=== PATIENT | female | born 1975 | race Caucasian/White ===

== ENCOUNTER 2023-01-29 10:26 | Outpatient (OUT) | payer OTHER, SELFPAY ==
--- NOTE | 2023-01-29 10:46 | ECG_ITS ---
The [facility] Test Date: 2023-01-29 Pat Name: DOUG BARROSO Department: Room: - Gender: Female [employer]: : 1975 Requested By: MADISON JOYA Order Number: [id number] Reading MD: LEVI RAMIREZ Measurements Intervals [place] Rate: 68 P: 39 MI: 165 QRS: 1 QRSD: 97 T: 45 QT: 402 QTc: 430 Interpretive Statements SINUS RHYTHM No previous ECG available for comparison Electronically Signed On 01-30-2023 7:15:37 EDT by LEVI RAMIREZ
[2023-01-29 11:22] LABS: Basophils Percent Auto 0.4 % (0.2-2.0); Eosinophils Absolute Auto 0.2 10^3/uL (0.0-0.7); Eosinophils Percent Auto 2.6 % (0.9-7.0); Hematocrit 41.8 % (36.0-48.0); Hemoglobin 13.9 g/dL (12.0-16.0); Immature Granulocytes Abs Auto 0.02 10^3/uL (0.00-0.03); Immature Granulocytes Pct Auto 0.4 % (0.0-0.5); Lymphocytes Absolute Auto 1.4 10^3/uL (1.2-3.8); Lymphocytes Percent Auto 24.2 % (20.5-60.0); Mean Corpuscular HGB Conc 33.3 g/dL (29.9-35.2); Mean Corpuscular Hemoglobin 29.7 pg (26.7-34.0); Mean Corpuscular Volume 89.3 fL (81.0-99.0); Mean Platelet Volume 11.4 fL (9.5-13.5); Monocytes Absolute Auto 0.4 10^3/uL (0.3-0.8); Monocytes Percent Auto 6.1 % (1.7-12.0); Neutrophils Absolute Auto 3.8 10^3/uL (1.4-6.5); Neutrophils Percent Auto 66.3 % (43.0-75.0); Platelet Count 223 10^3/uL (150-450); Red Blood Count 4.68 10^6/uL (4.20-5.40); Red Cell Distribution Width 12.4 % (11.0-15.0); White Blood Count 5.7 10^3/uL (4.0-11.0)
[2023-01-29 16:02] LABS: Anion Gap 12.3; BUN Creatinine Ratio 12.5; Calcium 8.5 mg/dL (8.5-10.1); Carbon Dioxide 27.6 mmol/L (21.0-32.0); Chloride 102 mmol/L (98-107); Estimated GFR (African America >60 (>=60); Estimated GFR (Non-African Ame >60 (>=60); Glucose 87 mg/dL (74-106); Potassium 3.9 mmol/L (3.5-5.1); Sodium 138 mmol/L (136-145); Thyroid Stimulating Hormone 3.684 uIU/mL (0.358-3.740)
== END 2023-01-29 10:27 | disposition home or self-care (01) ==
LOC: LAB 10:38
PROVIDERS: PCP Family Medicine; Visit Provider Family Medicine
DX: R55 Syncope and collapse (principal)
CPT/HCPCS: 36415; 80048; 84443; 85025; 93005

== ENCOUNTER 2023-03-12 08:59 | Outpatient (OUT) | payer OTHER, SELFPAY ==
--- NOTE | 2023-03-12 | XR_ITS ---
The [address] [address] Patient Name: DOUG BARROSO MRN: [id number] date: 1975 Sex: F Assigned Patient Location: [facility] Current Patient Location: [facility] Accession/Order Number: [id number] Exam Date: 03/12/2023 09:02 Report Date: 03/12/2023 15:07 At the request of: EARNEST PORTER Procedure: XR ankle RT min 3V PROCEDURE: XR ankle RT min 3V HISTORY: RIGHT ANKLE PAIN COMPARISON: XR ankle right 09/18/2022 FINDINGS: BONES:Prosthetic replacement of the talus and the articular surface of the tibial plafond. No evidence of hardware fracture loosening. No bone fracture dislocation. SOFT TISSUES:Soft tissue swelling surrounding the ankle. EFFUSION:None visible. OTHER: Negative. XR/XR ankle RT min 3V IMPRESSION: 1. Stable surgical changes without evidence of hardware failure or change in alignment. 2. Soft tissue swelling.. Electronically authenticated by: SEVEN GARCIA Date: 03/12/2023 15:07
== END 2023-03-12 09:00 | disposition home or self-care (01) ==
LOC: RAD 08:59
PROVIDERS: PCP Family Medicine; Visit Provider Podiatrist Foot & Ankle Surgery
DX: R60.0 Localized edema (principal); Z96.661 Presence of right artificial ankle joint
CPT/HCPCS: 73610

== ENCOUNTER 2023-09-10 09:02 | Outpatient (OUT) | payer OTHER, SELFPAY ==
--- NOTE | 2023-09-10 | XR_ITS ---
The [address] [address] Patient Name: DOUG BARROSO MRN: [id number] date: 1975 Sex: F Assigned Patient Location: Current Patient Location: Accession/Order Number: [id number] Exam Date: 09/10/2023 09:03 Report Date: 09/10/2023 14:23 At the request of: EARNEST PORTER Procedure: XR ankle RT min 3V PROCEDURE: XR ankle RT min 3V COMPARISON: 03/12/2023 HISTORY: RIGHT ANKLE PAIN FINDINGS: BONES:Ankle arthroplasty with talus replacement. No acute fracture or dislocation. There is been increase in dorsal displacement of the navicular in relation to the talus. Degenerative changes with joint space narrowing and marginal osteophyte formation. Moderate plantar enthesopathic spurring of the calcaneus SOFT TISSUES:Negative. No visible soft tissue swelling. EFFUSION:Moderate joint effusion OTHER: Negative. XR/XR ankle RT min 3V IMPRESSION: Ankle arthroplasty with talus replacement Electronically authenticated by: MICK KOEHLER Date: 09/10/2023 14:23
--- OUTSIDE RECORDS SUMMARY | 2023-09-10 09:33 | XMS_ITS | CCD ---
Author Organization [facility] Care Team Providers Care Maxillofacial Prosthodontist Name Role Phone DENISHA RUSH Admitting Unavailable WEST, DR MICK Rodas Consulting Unavailable JOYA, DR MARICRUZ Hammonds Primary Care Unavailable VICTOR MANUEL, DENISHA Attending Unavailable VICTOR MANUEL, DENISHA Consulting Unavailable VICTOR MANUEL, DENISHA Admitting Unavailable ZIEBER, DR SEVEN Gallegos Consulting Unavailable JOYA, DR MARICRUZ Hammonds Primary Care Unavailable VICTOR MANUEL, DENISHA Attending Unavailable VICTOR MANUEL, DENISHA Consulting Unavailable VICTOR MANUEL, DENISHA Admitting Unavailable WEST, DR MICK Rodas Consulting Unavailable JOYA, DR MARICRUZ Hammonds Primary Care Unavailable DENISHA RUSH Attending Unavailable VICTOR MANUEL, DENSIHA Consulting Unavailable VICTOR MANUEL, DENISHA Admitting Unavailable WEST, DR MICK Rodas Consulting Unavailable JOYA, DR MARICRUZ Hammonds Primary Care Unavailable VICTOR MANUEL, DENISHA Attending Unavailable DENISHA RUSH Consulting Unavailable CHARLOTTE, EARNEST Myrick Admitting Unavailable JOYA, DR MARICRUZ Hammonds Primary Care Unavailable ZIEBER, DR SEVEN Gallegos Consulting Unavailable HIGHLEARNEST LÓPEZ Attending Unavailable HIGHLEARNEST LÓPEZ Consulting Unavailable AGUBOSIMLÁZARO Consulting Unavailable CHRISTI ., FIGUEROA HER Consulting Unavailable AMERICO DANIELSON Consulting Unavailable CHARLOTTE, EARNEST Myrick Admitting Unavailable JOYA, DR MARICRUZ Hammonds Primary Care Unavailable HIGHLANDEREARNEST Consulting Unavailable CHARLOTTE, EARNEST Myrick Attending Unavailable JOYA, DR MARICRUZ Hammonds Primary Care Unavailable HIGHLANDEREARNEST Consulting Unavailable HIGHLMARIBEL, EARNEST Myrick Admitting Unavailable HIGHLMARIBEL, EARNEST Myrick Attending Unavailable AGRAWALCHUCK CARBAJAL Consulting Unavailable VICTOR MANUEL, DENISHA Admitting Unavailable JOYA, DR MARICRUZ Hammonds Primary Care Unavailable VICTOR MANUEL, DENISHA Attending Unavailable VICTOR MANUEL, DENISHA Admitting Unavailable JOYA, DR MARICRUZ Hammonds Primary Care Unavailable VICTOR MANUEL, DENISHA Attending Unavailable VICTOR MANUEL, DENISHA Admitting Unavailable JOYA, DR MARICRUZ Hammonds Primary Care Unavailable VICTOR MANUEL, DENISHA Attending Unavailable WEST, DR MICK Rodas Consulting Unavailable DENISHA RUSH Consulting Unavailable EARNEST PORTER Admitting Unavailable RADHA, DR SEVEN Gallegos Consulting Unavailable DR MARICRUZ JOYA Primary Care Unavailable EARNEST PORTER Attending Unavailable EARNEST PORTER Consulting Unavailable EARNEST PORTER Admitting Unavailable RADHA, DR SEVEN Gallegos Consulting Unavailable EARNEST PORTER Attending Unavailable DR MARICRUZ JOYA Primary Care Unavailable EARNEST PORTER Consulting Unavailable EARNEST PORTER Admitting Unavailable DR MARICRUZ JOYA Primary Care Unavailable EARNEST PORTER Attending Unavailable Maricruz Joya Unavailable Shabana Merino Unavailable MD Shabana Merino Attending Provider [phone] MD Maricruz Joya Primary Care Provider Shabana Merino Admitting Unavailable Shabana Merino Attending Unavailable Maricruz Joya Primary Care Unavailable Allergies Allergy Classification Reported Allergen(s) Allergy Type Date of Onset Reaction(s) Facility (4 sources) patient allergy list reviewed by nurse or physicia Propensity to adverse reactions 9 Comment:Done [employer] Other (4 sources) Allergies Reconciled Propensity to adverse reactions Unknown [employer] Other Medications Current Medications Medication Drug Class(es) Dates Sig (Normalized) Sig (Original) Levonorgestrel (4 sources) Progestin, Progestin-containi ng Intrauterine Device Start: 02-01-2019 Mirena (52 MG) 20MCG/24HR Mirena (52 MG)( 20MCG/24HR Intrauterine ) Active -Hx Entry Intrauterine for 0 [facility]:43378-746-52 LOT# [id number] EXP:01/2021 *Pick strength-form from [facility] for eRX* Jan, Active Vitamin D3 50 MCG(1999 UT) (4 sources) Start: 12-13-2021 take 1 tablet by mouth once daily Vitamin D3 50 MCG(1999 UT) Vitamin D3 50 MCG(1999 UT), 1 (one) Tablet daily # 60, 12/13/2021, Ref. x5. Active Oral daily for 0 *Pick strength-form from [facility] for eRX* Dec, Active Problems Active Problems Problem Classification Problem Date Documented Da te Episodic/Chronic Administrative/social admission (12 sources) Dietary management surveillance; Translations: [Dietary counseling and surveillance] Episodic Anxiety disorders (5 sources) Anxiety disorder, unspecified; Translations: [Anxiety disorder] Onset: 01-08-2022 Chronic Contraceptive and procreative management (4 sources) Surveillance of intrauterine device contraception; Translations: [Encounter for routine checking of intrauterine contraceptive device] Episodic Esophageal disorders (4 sources) Eosinophilic esophagitis; Translations: [Eosinophilic esophagitis] Chronic Essential hypertension (1 source) Essential (primary) hypertension; Translations: [ESSENTIAL PRIMARY HYPERTENSION] Onset: 12-18-2021 Chronic Fracture of lower limb (5 sources) Unspecified fracture of shaft of right tibia, subsequent encounter for closed fracture with nonunion; Translations: [Nonunion of fracture] Onset: 10-25-2021 Episodic Menstrual disorders (4 sources) Excessive and frequent menstruation; Translations: [Excessive and frequent menstruation with regular cycle] Chronic Mood disorders (1 source) Major depressive disorder, single episode, unspecified; Translations: [CHARLENE DEPRESS D/O SINGLE EPIS UNS] Onset: 01-08-2022 Chronic Nonmalignant breast conditions (4 sources) Mammographic calcification found on diagnostic imaging of breast; Translations: [Mammographic calcification found on diagnostic imaging of breast] Episodic Osteoarthritis (9 sources) Primary osteoarthritis, right ankle and foot; Translations: [Localized, primary osteoarthritis of the ankle and/or foot] Onset: 01-08-2022 Chronic Other acquired deformities (4 sources) Joint contracture of the ankle and/or foot; Translations: [Contracture, right ankle] Chronic Other aftercare (4 sources) Long-term current use of drug therapy; Translations: [Other scientific technical writer (current) drug therapy] Episodic Other aftercare (4 sources) Long-term current use of antibiotic; Translations: [edging supervisor (current) use of antibiotics] Episodic Other bone disease and musculoskeletal deformities (6 sources) Idiopathic aseptic necrosis of right ankle; Translations: [IDIOPATH ASEPTIC NECROSIS RT ANKLE] Onset: 02-18-2022 Chronic Other bone disease and musculoskeletal deformities (4 sources) Bone density finding; Translations: [Other specified disorders of bone density and structure, unspecified site] Episodic Other connective tissue disease (4 sources) Presence of right artificial ankle joint; Translations: [PRESENCE RT ARTIFICIAL ANKLE JOINT] Onset: 05-05-2022 Chronic Other connective tissue disease (4 sources) Pain in right foot; Translations: [Pain in right foot] Episodic Other connective tissue disease (4 sources) Peroneal tendinitis; Translations: [Peroneal tendinitis, right leg] Episodic Other gastrointestinal disorders (8 sources) Dysphagia; Translations: [Dysphagia, unspecified] Onset: 06-06-2017 Episodic Other non-traumatic joint disorders (9 sources) Other specified joint disorders, right ankle and foot; Translations: [OTHER SPEC JOINT D/O RT ANKLE FOOT] Onset: 12-18-2021 Episodic Other non-traumatic joint disorders (4 sources) Instability of joint of right ankle; Translations: [Other instability, right ankle] Episodic Other non-traumatic joint disorders (4 sources) Arthralgia of the ankle and/or foot; Translations: [Pain in right ankle and joints of right foot] Episodic Other nutritional; endocrine; and metabolic disorders (4 sources) Obesity; Translations: [Obesity, unspecified] Chronic Other nutritional; endocrine; and metabolic disorders (16 sources) Obese class II; Translations: [Body mass index (BMI) 38.0-38.9, adult] Onset: 08-12-2016 Resolved: 01-25-2020 Chronic Other nutritional; endocrine; and metabolic disorders (4 sources) Morbid obesity; Translations: [Morbid (severe) obesity due to excess calories] Chronic Other nutritional; endocrine; and metabolic disorders (4 sources) Abnormal weight gain; Translations: [Abnormal weight gain] Episodic Other screening for suspected conditions (not mental disorders or infectious disease) (4 sources) Imaging result abnormal; Translations: [Abnormal findings on diagnostic imaging of other specified body structures] Chronic Ovarian cyst (4 sources) Cyst of left ovary; Translations: [Unspecified ovarian cyst, left side] Episodic Phlebitis; thrombophlebitis and thromboembolism (5 sources) Personal history of other venous thrombosis and embolism; Translations: [Deep venous thrombosis of right lower extremity] Onset: 01-08-2022 Episodic Residual codes; unclassified (5 sources) Presence of functional implant, unspecified; Translations: [PRESENCE FUNCTIONAL IMPLANT UNS] Onset: 01-08-2022 Chronic Residual codes; unclassified (4 sources) Postprocedural state finding; Translations: [Other specified postprocedural states] Episodic Residual codes; unclassified (4 sources) Sleep disorder; Translations: [Sleep disorder, unspecified] Episodic Sprains and strains (5 sources) Strain of muscle(s) and tendon(s) of peroneal muscle group at lower leg level, right leg, subsequent encounter; Translations: [STRAIN M AND T PERONEAL LOW RT LEG SUBS] Onset: 01-08-2022 Episodic Syncope (6 sources) Syncope and collapse; Translations: [Syncope and collapse] Onset: 11-07-2017 Episodic Past or Other Problems Problem Classification Problem Date Documented Date Episodic/Chronic Abdominal pain (4 sources) Abdominal pain; Translations: [Abdominal pain, other specified site] Onset: 11-07-2017 Episodic Acute bronchitis (4 sources) Acute bronchitis; Translations: [Acute bronchitis] Onset: 09-27-2016 Episodic Allergic reactions (4 sources) Inflammatory dermatosis; Translations: [Dermatitis, unspecified] Onset: 06-06-2017 Episodic Bacterial infection; unspecified site (4 sources) Bacterial infectious disease; Translations: [Bacterial infection, unspecified, in conditions classified elsewhere and of unspecified site] Onset: 08-12-2016 Episodic Influenza (4 sources) Influenza due to identified novel influenza A virus with other respiratory manifestations; Translations: [Influenza due to identified novel influenza A virus with other respiratory manifestations] Onset: 07-23-2018 Episodic Malaise and fatigue (4 sources) Fatigue; Translations: [Other fatigue] Resolved: 01-25-2020 Episodic Miscellaneous mental health disorders (4 sources) Emotional state finding; Translations: [Other symptoms and signs involving emotional state] Resolved: 01-25-2020 Episodic Noninfectious gastroenteritis (4 sources) Non-infective enteritis and colitis; Translations: [Noninfective gastroenteritis and colitis, unspecified] Onset: 07-23-2018 Episodic Other aftercare (1 source) Other jail (current) drug therapy; Translations: [OTH [facility] CURRENT DRUG THERAPY] Onset: 01-08-2022 Episodic Other aftercare (1 source) edging supervisor (current) use of anticoagulants; Translations: [[facility] CURRNT USE ANTICOAGULANTS] Onset: 01-08-2022 Episodic Other aftercare (1 source) [facility] (current) use of oral hypoglycemic drugs; Translations: [PMO PROJECT MANAGER USE ORAL HYPOGLYCEMIC DX] Onset: 01-08-2022 Episodic Other aftercare (4 sources) History and physical examination, follow-up; Translations: [Encounter for follow-up examination after completed treatment for conditions other than malignant neoplasm] Resolved: 01-25-2020 Episodic Other bone disease and musculoskeletal deformities (1 source) Other specified disorders of bone density and structure, unspecified site; Translations: [OTH D/O BONE DEN STRUCT UNS SITE] Onset: 01-08-2022 Episodic Other connective tissue disease (1 source) Peroneal tendinitis, right leg; Translations: [PERONEAL TENDINITIS RIGHT LEG] Onset: 01-08-2022 Episodic Other nervous system disorders (1 source) Unspecified abnormalities of gait and mobility; Translations: [UNS ABNORMALITIES GAIT AND MOBILITY] Onset: 02-18-2022 Episodic Other nervous system disorders (1 source) Other abnormalities of gait and mobility; Translations: [OTHER ABNORMALITIES GAIT AND MOBILITY] Onset: 02-18-2022 Episodic Other non-traumatic joint disorders (5 sources) Pain in right ankle and joints of right foot; Translations: [PAIN IN RIGHT ANKLE] Onset: 02-07-2022 Episodic Other non-traumatic joint disorders (1 source) Other instability, right ankle; Translations: [OTHER INSTABILITY RIGHT ANKLE] Onset: 01-08-2022 Episodic Other skin disorders (4 sources) Generalized hyperhidrosis; Translations: [Generalized hyperhidrosis] Onset: 11-07-2017 Episodic Other upper respiratory infections (4 sources) Chronic sinusitis; Translations: [Chronic sinusitis, unspecified] Resolved: 01-25-2020 Chronic Other upper respiratory infections (8 sources) Acute maxillary sinusitis; Translations: [Acute recurrent maxillary sinusitis] Onset: 08-12-2016 Episodic Residual codes; unclassified (4 sources) Insomnia; Translations: [Insomnia, unspecified] Onset: 09-14-2018 Episodic Results Test Name Value Interpretation Reference Range Facility [facility] echo transthoracicon [facility] echo transthoracic [facility] [place] [address] Echocardiogram Signed Patient: Laina Lara MR#: [id number] : 1975 Acct:[id number] Age/Sex: 47 / F ADM Date: 03/07/23 Loc: Room: Type: [facility] Attending Dr: Shabana Merino MD Ordering Provider: Shabana Merino MD Date of Service: 03/07/2307/25/1036 ECH/ECH echo transthoracic: Syncope, unspecified syncope type Copies to: Shabana Merino MD BSA: 2.1 m2 BP: 128/80 mmHg HR: 71 Reason For Study: Syncope, unspecified syncope type History: COVID Interpretation Summary The left ventricular size, thickness and function are normal. Ejection Fraction = 60-65%. The left ventricular wall motion is normal. There is trace tricuspid regurgitation. There is no comparison study available. Procedure/Quality: A two-dimensional transthoracic echocardiogram with color flow and Doppler was performed. Left Ventricle: The left ventricular size, thickness and function are normal. Ejection Fraction = 60-65%. A variety of Doppler measurements indicate normal left ventricular diastolic function. The left ventricular wall motion is normal. Left Atrium: The left atrium appears normal in size. Right Atrium: The right atrium appears normal in size. Right Ventricle: The right ventricular size, thickness and function are normal. Aortic Valve: The aortic valve is normal in structure and function. No aortic regurgitation is present. Mitral Valve: The mitral valve is normal in structure and function. There is no mitral regurgitation noted. Tricuspid Valve: The tricuspid valve is normal. There is trace tricuspid regurgitation. Pulmonic Valve: The pulmonic valve is normal in structure and function. Arteries: The aortic root is normal size. Pericardium/Pleura: No pericardial effusion seen. There is no pleural effusion. IVC/Hepatic Viens: The inferior vena cava is normal in size, with a normal collapsibility index. Measurements with Normals IVSd: 1.0 cm (0.7-1.1 cm)LVIDd: 4.5 cm (3.7-5.4 cm) LVPWd: 0.99 cm (0.7-1.1 cm)LVIDs: 2.7 cm (2.3-3.6 cm) LA dimension: 3.9 cm (2.3-4.0 cm)Ao root diam: 3.1 cm(2.0-3.6 cm) asc Aorta Diam: 3.4 cm(2.1-3.4cm) Doppler with Normals RVSP(TR): 30.0 mmHg (18-35mmHg) MV E max jerardo: 80.1 cm/sec(0.8-1.3m/s) MV A max jerardo: 70.3 cm/sec(0.0-0.0m/s) MV E/A: 1.1 (<1.5) MMode/2D Measurements Calculations RVDd: 3.0 cm FS: 40.3 % Ao root area: 7.4 cm2 LVLd ap4: 7.3 cm TAPSE: 2.3 cm EDV(Teich): EDV(MOD-sp4): RV S Jerardo: 92.4 ml 61.2 ml 13.8 cm/sec ESV(Teich): LVLs ap4: 5.6 cm 26.7 ml ESV(MOD-sp4): EF(Teich): 71.2 % 19.3 ml EF(MOD-sp4): 68.5 % __ SV(MOD-sp4): LAV(MOD-sp4): LA A2 area: 14.6 cm2 RA Volume: 33.3 ml 41.9 ml 35.9 ml LAV(MOD-sp2): LA A4 area: 15.5 cm2 32.4 ml LA length (vol): 5.4 cm LA vol: 35.3 ml LA vol index: 16.8 ml/m2 Doppler Measurements Calculations E/E' lat: 6.5 TV max P.0 mmHg TR max jerardo: 249.8 cm/sec E/E' med: 8.7 TR max P.0 mmHg RAP systole: 5.0 mmHg Transcribed By: IMMANUEL Performed At: 03/07/23 1050 Signed By: Shabana Merino MD 03/07/23 1252 [facility] POINT OF CARE GLUCOSEon 12-04 Glucose [Mass/Vol] 136 mg/dL Critically high 74-106 T [facility] Comment on above: Performed By: #### P OCGLUC ####[facility] [address] [id number]. Heidy Corona PREG HCG QUALon 12-27-2021 , QUAL Negative Normal NEGATIVE [facility] Comment on above: Performed By: #### P REG ####[facility] [address] [place], [place] [id number]. Heidy Corona CBC AUTO DIFFon 12-17-2021 BASO # 0.0 103/ul Normal 0.0-0.1 [facility] Comment on above: Performed By: #### C BC ####[facility] [address] [place], [place] [id number]. Adryramana Corona Basophils/100 WBC (Bld) 0.3 % Normal 0.2-2.0 [facility] Comment on above: Performed By: #### C BC ####[facility] [address] [place], [place] [address]Dr. Heidy Corona EO # 0.2 103/ul Normal 0.0-0.7 [facility] Comment on above: Performed By: #### C BC ####[facility] [address] [place], [place] [address]Dr. Heidy Corona Eosinophils/100 WBC (Bld) 3.1 % Normal 0.9-7.0 [facility] Comment on above: Performed By: #### C BC ####[facility] [address] [place], [place] [address]Dr. Heidy Corona Erythrocyte distribution width (RBC) [Ratio] 13.1 % Normal 11.0-15.0 [facility] Comment on above: Performed By: #### C BC ####[facility] [address] [place], [place] [address]Dr. Heidy Corona Hematocrit (Bld) [Volume fraction] 41.2 % Normal 36.0-48.0 [facility] Comment on above: Performed By: #### C BC ####[facility] [address] [place], [place] [address]Dr. Heidy Corona Hemoglobin (Bld) [Mass/Vol] 13.6 g/dL Normal 12.0-16.0 [facility] Comment on above: Performed By: #### C BC ####[facility] [address] [id number]. Heidy Corona IG # 0.01 10e3/ul Normal 0.00-0.03 [facility] Comment on above: Performed By: #### C BC ####[facility] [address] [id number]. Heidy Corona IG % 0.2 % Normal 0.0-0.5 [facility] Comment on above: Performed By: #### C BC ####[facility] [address] [address]Dr. Heidy Corona LYMPH # 1.2 103/ul Normal 1.2-3.8 [facility] Comment on above: Performed By: #### C BC ####[facility] [address] [address]Dr. Heidy Corona Lymphocytes/100 WBC (Bld) 20.1 % Critically low 20.5-60.0 [facility] Comment on above: Performed By: #### C BC ####[facility] [address] [address]Dr. Heidy Corona MANUAL DIFF REQ NO Normal [facility] Comment on above: Performed By: #### C BC ####[facility] [address] [id number]. Heidy Corona MCH (RBC) [Entitic mass] 29.4 pg Normal 26.7-34.0 [facility] Comment on above: Performed By: #### C BC ####[facility] [address] [place], [place] [address]Dr. Heidy Corona MCHC (RBC) [Mass/Vol] 33.0 g/dL Normal 29.9-35.2 [facility] Comment on above: Performed By: #### C BC ####[facility] [address] [address]Dr. Heidy Corona MCV (RBC) [Entitic vol] 89.2 fL Normal 81.0-99.0 [facility] Comment on above: Performed By: #### C BC ####[facility] [address] [id number]. Heidy Corona MONO # 0.4 103/ul Normal 0.3-0.8 [facility] Comment on above: Performed By: #### C BC ####[facility] [address] [id number]. Heidy Corona Monocytes/100 WBC (Bld) 6.2 % Normal 1.7-12.0 [facility] Comment on above: Performed By: #### C BC ####[facility] [address] [id number]. Heidy Corona NEUT # 4.1 103/ul Normal 1.4-6.5 [facility] Comment on above: Performed By: #### C BC ####[facility] [address] [place], [place] [address]Dr. Heidy Corona Neutrophils/100 WBC (Bld) 70.1 % Normal 43.0-75.0 [facility] Comment on above: Performed By: #### C BC ####[facility] [address] [place], [place] [address]Dr. Heidy Corona Platelet mean volume (Bld) [Entitic vol] 11.5 fL Normal 9.5-13.5 [facility] Comment on above: Performed By: #### C BC ####[facility] [address] [place], [place] [address]Dr. Heidy Corona PLT 209 103/ul Normal 150-450 [facility] Comment on above: Performed By: #### C BC ####[facility] [address] [place], [place] [address]Dr. Heidy Corona RBC 4.62 106/ul Normal 4.20-5.40 [facility] Comment on above: Performed By: #### C BC ####[facility] [address] [address]Dr. Heidy Corona WBC 5.8 103/ul Normal 4.0-11.0 [facility] Comment on above: Performed By: #### C BC ####[facility] [address] [address]Dr. Heidy Corona PROF CHEM 8 (BAS METB)on Anion gap [Moles/Vol] 11.6 mmol/L Normal [facility] Comment on above: Performed By: #### B MP #### [facility] [address] [address] [address] Heidy Corona Calcium [Mass/Vol] 8.4 mg/dL Critically low 8.5-10.1 [facility] Comment on above: Performed By: #### B MP #### [facility] [address] [address] [address] Heidy Corona Chloride [Moles/Vol] 102 mmol/L Normal 98-107 [facility] Comment on above: Performed By: #### B MP #### [facility] [address] [address] [address] Heidy Corona CO2 [Moles/Vol] 28.2 mmol/L Normal 21.0-32.0 [facility] Comment on above: Performed By: #### B MP #### [facility] [address] [address] [address] Heidy Corona Creatinine [Mass/Vol] 0.68 mg/dL Normal 0.55-1.02 [facility] Comment on above: Performed By: #### B MP #### [facility] [address] [address] [address] Heidy Corona EGFR-AF IRANIAN >60 Normal >=60 [facility] Comment on above: Performed By: #### B MP #### [facility] [address] [address] [address] Heidy Corona EGFR-NON AF IRANIAN >60 Normal >=60 [facility] Comment on above: Performed By: #### B MP #### [facility] [address] [address] [address] Heidy Corona Glucose [Mass/Vol] 90 mg/dL Normal 74-106 [facility] Comment on above: Performed By: #### B MP #### [facility] [address] [address] [address] Heidy Corona Potassium [Moles/Vol] 3.8 mmol/L Normal 3.5-5.1 [facility] Comment on above: Performed By: #### B MP #### [facility] [address] [address] [address] Heidy Corona Sodium [Moles/Vol] 138 mmol/L Normal 136-145 [facility] Comment on above: Performed By: #### B MP #### [facility] [address] [address] [address] Heidy Corona Urea nitrogen [Mass/Vol] 10.0 mg/dL Normal 7.0-18.0 [facility] Comment on above: Performed By: #### B MP #### [facility] [address] [address] [address] Heidy Corona Urea nitrogen/Creatinine [Mass ratio] 14.7 mg/mg Normal [facility] Comment on above: Performed By: #### B MP #### [facility] [address] [address] [address] Heidy Corona PROTIMEon 12-17-2021 INR Coag (PPP) [Relative time] 1.07 {INR} Normal [facility] Comment on above: Performed By: #### P T, PTT ####[facility] [id number] [address]Dr. Heidy Corona INR GUIDELINES SEE BELOW Normal [facility] Comment on above: Result Comment: KHURRAM RED INR: 2.0 - 3.0 CONDITIONS NOT LISTED BELOW 2.5 - 3.5 FOR PROSTHETIC HEART VALVE REPLACEMENT 2.5 - 3.5 RECURRENT THROMBOSIS Performed By: #### P T, PTT ####[facility] [id number] [address]Dr. Heidy Corona PT Coag (PPP) [Time] 11.5 s Normal 9.0-11.6 [facility] Comment on above: Performed By: #### P T, PTT ####[facility] [id number] [address]Dr. Heidy Corona PTTon 12-17-2021 aPTT Coag (Bld) [Time] 29.9 s Normal 22.3-36.2 [facility] Comment on above: Performed By: #### P T, PTT #### [facility] [address] [place] [address] ANKLE RT WO CONon 022 CT ANKLE RT WO CON EXAMINATION: CT ANKL E RT WO CON HISTORY: Closed fracture of shaft of right tibia COMPARISON: 05/17/2021 TECHNIQUE: Multi-planar CT images were created without IV contrast. Dose reduction techniques were achieved by using automated exposure control and/or adjustment of mA and/or kV according to patient size and/or use of iterative reconstruction technique. FINDINGS: BONES: Stable ankle replacement with total talus arthroplasty and tibial plafond and arthroplasty in anatomic alignment. No acute fracture, dislocation or mechanical failure. No definite evidence of loosening. Stable cystic changes of the calcaneus. Stable transverse osteotomy of the medial cuneiform with bony bridging Permeative pattern of the bones suggests mild osteopenia. Mild tricompartmental osteoarthropathy of the knee with marginal osteophyte formation. SOFT TISSUES: Negative. No visible soft tissue swelling. EFFUSION: None visible. OTHER: Negative. IMPRESSION: Stable postsurgical changes with mild osteopenia of the foot Electronically authenticated by: MICK KOEHLER Date: 2021-10-23 16:36 Normal [facility] Vital Signs Date Time Vital Sign Value Performing Clinician Facility 02-10-2023 13:40-0400 Body height 165.1 cm Shabana Merino Other [facility] Other 02-10-2023 13:40-0400 Body mass index (BMI) [Ratio] 39.83 kg/m2 Shabana Merino Other [facility] Other 02-10-2023 13:40-0400 Body weight 108.59 kg Shabana Merino Other [facility] Other 02-10-2023 13:40-0400 Diastolic blood pressure 84 mm[Hg] Shabana Merino Other [facility] Other 02-10-2023 13:40-0400 SaO2% (BldA) [Mass fraction] 96 % Shabana Wilber Other [facility] Other 02-10-2023 13:40-0400 Systolic blood pressure 122 mm[Hg] Shabana Wilber Other [facility] Other Encounters Encounter Date Encounter Type Care Provider Facility Start: 03-07-2023 End: 03-07-2023 ambulatory Shabana Wilber Facility:[facility] Start: 03-07-2023 End: 03-07-2023 ambulatory MD Maricruz Joya Work Phone: [facility] Work Phone: Start: 03-07-2023 End: 03-07-2023 Patient encounter procedure MD Maricruz Joya Work Phone: [facility] Work Phone: Start: 03-03-2023 End: 03-03-2023 ambulatory Shabana Wilber Other [facility] Other Start: 03-03-2023 Telephone encounter Shabana Wilber [facility] Start: 02-11-2023 End: 02-11-2023 ambulatory Shabana Wilber Other [facility] Other Start: 02-11-2023 Telephone encounter Shabana Wilber [facility] [facility] Start: 02-10-2023 End: 02-10-2023 ambulatory Shabana Wilber Other [facility] Other Start: 02-10-2023 Office outpatient ne w 30 minutes Shabana Merino [facility] Start: 01-30-2023 End: 01-30-2023 ambulatory Maricruz Joya Other [facility] Other Start: 01-30-2023 Telephone encounter Maricruz Joya [facility] Start: 09-18-2022 ambulatory EARNEST PORTER Faci lity:[facility] Start: 06-26-2022 End: 06-27-2022 ambulatory EARNEST PORTER Facility:[facility] Start: 05-05-2022 End: 06-15-2022 ambulatory DENISHA VICTOR MANUEL Facility:[facility] Start: 05-01-2022 Gynecological examin ation normal Maricruz Joya Other [facility] Other Start: 03-20-2022 End: 03-21-2022 ambulatory PETER Elen WANANDER Facility:[facility] Start: 02-13-2022 End: 05-04-2022 ambulatory DENISHA VICTOR MANUEL Facility:[facility] Start: 02-07-2022 End: 02-08-2022 ambulatory DENISHA VICTOR MANUEL Facility:[facility] Start: 01-17-2022 End: 01-18-2022 ambulatory DENISHA VICTOR MANUEL Facility:[facility] Start: 12-27-2021 End: 12-27-2021 ambulatory EARNEST PORTER Facility:[facility] Start: 12-24-2021 ambulatory EARNEST PORTER Faci lity:[facility] Start: 12-18-2021 Encounter for preprocedural cardiovascular examination [facility]en [facility] Start: 12-18-2021 Encounter for preprocedural laboratory examination [facility] Start: 12-17-2021 End: 12-18-[address] MARICRUZ JOYA Facility:[facility] Start: 12-17-2021 End: 12-18-2021 Encounter for preprocedural cardiovascular examination DR MARICRUZ JOYA Facility:[facility] Start: 10-23-2021 End: 10-24-2021 ambulatory DENISHA VICTOR MANUEL Facility:[facility] Start: 10-18-2021 End: 10-19-2021 ambulatory DENISHA VICTOR MANUEL Facility:[facility] Start: 09-06-2021 End: 09-07-2021 ambulatory DENISHA VICTOR MANUEL Facility:[facility] Procedures Date Procedure Procedure Detail Performing Clinician End: 01-25-2020 Depression screening Maricruz Joya Other Insertion of intraut erine contraceptive device Maricruz Joya Other Mammography Maricruz Joya Other End: 10-12-2018 Screening for malignant neoplasm of breast Maricruz Joya Other Screening for malign ant neoplasm of breast Maricruz Joya Other Payers Date Payer Category Payer Self-pay 1975 Unknown [id number] 1975 Unknown [id number] 1976 Unknown [id number] 1976 Unknown [id number] 1976 Unknown [id number] [id number] 1976 Unknown [id number] [id number] 1976 Unknown [id number] [id number] 1976 Unknown [id number] [id number] 1976 Unknown [id number] [id number] 1976 Unknown [id number] [id number] 1976 Unknown [id number] [id number] 1976 Unknown [id number] [id number] 1976 Unknown [id number] [id number] 1959 Private Health Insurance [id number] Private Health Insurance [facility] [id number] Unknown [id number] Social History Date Type Detail Facility Unknown if ever smoked [facility] Other Sex Assigned At Sex Assigned At Bir th [facility] Other Start: 1975 Sex Assigned At Female F [facility] Clinical Notes 09-07-2021 to 02-10-2023 Note Date & Type Note Facility 02-10-2023 Evaluation note Encounter Date Diagnosis Assessment Notes Feb, Syncope, unspecified syncope type (ICD-10 - R55) Ms. Lara is a 47-year-old female with past medical history significant for DVT of the right lower extremity in 2020, right ankle replacement she presents today for presyncope and palpitations. Presyncope and palpitations concerning for POTSAtypical chest pain-We will plan for 2-week event monitor to rule out arrhythmias-Ech ocardiogram to evaluate LV and valvular function-Encour aged hydration and use of compression stockings.-Foll ow-up in a month [facility] Other [id number] NotePROCEDURE: XR ANKLE RT MIN 3 VIEWS HISTORY: Pain of right ankle joint COMPARISON: XR ankle right 03/20/2022 FINDINGS: BONES:Prosthetic replacement of the talus and articular surface of the tibial plafond without appreciable hardware fracture or loosening. No bone fracture dislocation. SOFT TISSUES:Moderate soft tissue swelling surrounding the ankle. EFFUSION:None visible. OTHER: Negative. IMPRESSION: 1. Stable ankle replacement without evidence of hardware failure or change in alignment. Electronically authenticated by: SEVEN GARCIA Date: 2022-06-26 17:04[facility]11-17-2022 NotePROCEDURE: XR ANKLE RT MIN 3 VIEWS HISTORY: Pain of right ankle joint COMPARISON: XR ankle right 02/07/2022 FINDINGS: BONES:Prosthetic replacement of the talus and articular surface of the tibial plafond; no appreciable hardware fracture or loosening. No bone fracture dislocation. Mild-moderate degenerative changes of the midfoot. SOFT TISSUES:No visible soft tissue swelling. EFFUSION:None visible. OTHER: Negative. IMPRESSION: 1. Stable surgical changes without evidence of hardware failure or change in alignment. Electronically authenticated by: SEVEN GARCIA Date: 2022-03-21 06:50[facility]10-06-2022 NotePROCEDURE: XR ANKLE RT MIN 3 VIEWS COMPARISON: 01/17/2022 HISTORY: Pain FINDINGS: BONES: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 Anatomic alignment. Moderate plantar enthesopathic spurring of the calcaneus SOFT TISSUES:Moderate diffuse soft tissue swelling. Interval removal of surgical skin margarita. EFFUSION:None visible. OTHER: Negative. IMPRESSION: Stable ankle replacement Electronically authenticated by: MICK KOEHLER Date: 2022-02-07 17:43[facility]09-15-2022 NotePROCEDURE: XR ANKLE RT MIN 3 VIEWS COMPARISON: 12/27/2021 HISTORY: Pain of right ankle joint FINDINGS: BONES:Stable ankle replacement including complete talus arthroplasty and tibial plafond arthroplasty. Some lucency surrounds the tibial component increased from the prior exam. Stable alignment. Enthesopathic spurring plantar calcaneus. SOFT TISSUES:Moderate diffuse soft tissue swelling. Surgical skin margarita. EFFUSION:None visible. OTHER: Negative. IMPRESSION: Ankle replacement with increased lucency surrounding the tibial component Electronically authenticated by: MICK KOEHLER Date: 2022-01-17 11:18[facility]08-26-2022 NotePROCEDURE: XR ANKLE RT 2V HISTORY: Pain COMPARISON: XR ankle right 10/18/2021 FINDINGS: BONES:Multiple intraoperative spot fluoroscopic images were obtained during replacement of the articular surface polycomponent of the tibial plafond prosthesis. IMPRESSION: 1. Intraoperative surgical revision/repair. Electronically authenticated by: SEVEN GARCIA Date: 2021-12-28 09:56[facility]08-26-2022 NotePROCEDURE: XR ANKLE RT MIN 3 VIEWS HISTORY: Pain COMPARISON: XR ankle right 12/27/2021 intraoperative images FINDINGS: BONES:Prosthetic replacement of the talus and articular surface of the tibial plafond. Bone fracture or dislocation. SOFT TISSUES:Soft tissue swelling surrounding the ankle. Anterior and lateral skin margarita. Images were obtained through cast material. EFFUSION:None visible. OTHER: Negative. IMPRESSION: 1. Right ankle replacement; stable compared to intraoperative images. Electronically authenticated by: SEVEN GARCIA Date: 2021-12-28 07:54[facility]08-01-2022 History general Narrative - Reported* Type Description Date Medical History eosinophilic esophagitis Medical History GERD Surgical History C section Surgical History Foot Surgery-RIGHT 12/2021 Surgical History Rt. 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/2020 [facility] Other 06-16-2022 NotePROCEDURE: XR ANKLE RT MIN 3 VIEWS HISTORY: Pain of right ankle joint COMPARISON: XR ankle right 09/06/2021 FINDINGS: BONES:Prosthetic replacement of the talus and the articular surface of the tibial plafond; no evidence for hardware fracture or loosening. No bone fracture or dislocation. SOFT TISSUES:Soft tissue swelling surrounding the ankle. EFFUSION:None visible. OTHER: Negative. IMPRESSION: 1. Stable surgical changes without evidence of hardware failure or change in alignment. Electronically authenticated by: SEVEN GARCIA Date: 2021-10-18 16:47[facility]05-06-2022 NotePROCEDURE: XR ANKLE RT MIN 3 VIEWS COMPARISON: 08/02/2021 HISTORY: Pain of right ankle joint FINDINGS: BONES:Stable ankle replacement with talus arthroplasty and tibial plafond and arthroplasty. Plate along the anterior distal tibia with multiple screws. No acute fracture, dislocation or mechanical failure. Moderate degenerative changes of the midfoot with joint space narrowing and marginal osteophyte formation. Enthesopathic spurring of the calcaneus SOFT TISSUES:Negative. No visible soft tissue swelling. EFFUSION: Stable moderate to large joint effusion OTHER: Negative. IMPRESSION: Stable ankle replacement with stable joint effusion Electronically authenticated by: MICK KOEHLER Date: 2021-09-07 07:14[facility]No [facility] [place] Other Evaluation noteNo assessment information available [facility] Work Phone: Summary Purpose Family History No Family History Records FoundNo Family History Records Found Advance Directives No Advanced Directives Records Found Advance Directive Response Recorded Date/ Time Advance Directives No March 03, 2023 11:19am Chief Complaint and Reason for Visit Chief Complaint R55 Additional Source Comments INFORMATION SOURCE (unrecogn ized section and content) DATE CREATED AUTHOR 09/02/2022 [facility] DATE CREATED AUTHOR AUTHOR'S ORGANNORBERTO ATION 03/08/2023 [facility] REASON FOR VISIT (unrecogniz ed section and content) testsREFERRED BY DR. MARICRUZ JOYA FOR SYNCOPE AND COLLAPSECARDIO NOTEStesting ordered Care Teams (unrecognized sec tion and content) Team Status: Active Member Role Status Dates Maricruz Joya MD Primary Care Provider Active Team Status: Inactive Member Role Status Dates Shabana Merino MD Attending Provider Active Maricruz Joya MD Primary Care Provider Active Goals (unrecognized section and content) Goals may be documented in a n alternate section FOR RECORDS PERTAINING TO PATIENTS WHO ARE OR HAVE BEEN ENROLLED IN A CHEMICAL DEPENDENCY/SUBSTANCEABUSE PROGRAM, SOME INFORMATION MAY BE OMITTED. This clinical summary was aggregated from multiple sources. Caution should be exercised in using it in the provision of clinical care. This summary normalizes information from multiple sources, and as a consequence, information in this document may materially change the coding, format and clinical context of patient data. In addition, data may be omitted in some cases. CLINICAL DECISIONS SHOULD BE BASED ON THE PRIMARY CLINICAL RECORDS. [facility]. provides no warranty or guarantee of the accuracy or completeness of information in this document.
== END 2023-09-10 09:03 | disposition home or self-care (01) ==
LOC: EC 09:02
PROVIDERS: PCP Family Medicine; Visit Provider Podiatrist Foot & Ankle Surgery
DX: M19.071 Primary osteoarthritis, right ankle and foot (principal); Z96.661 Presence of right artificial ankle joint
CPT/HCPCS: 73610

== ENCOUNTER 2023-10-03 09:53 | Outpatient (OUT) | payer OTHER, SELFPAY ==
--- OUTSIDE RECORDS SUMMARY | 2023-10-03 10:16 | XMS_ITS | CCD ---
Author Organization [facility] Care Team Providers Care Lithograph Operator Name Role Phone DENISHA RUSH Admitting Unavailable WEST, DR MICK Rdoas Consulting Unavailable JOYA, DR MARICRUZ Hammonds Primary Care Unavailable DENISHA RUSH Attending Unavailable VICTOR MANUEL, DENISHA Consulting Unavailable LEOBARDO RUSHLY Admitting Unavailable ZIEBER, DR SEVEN Gallegos Consulting Unavailable JOYA, DR MARICRUZ Hammonds Primary Care Unavailable DENISHA RUSH Attending Unavailable VICTOR MANUEL, DENISHA Consulting Unavailable VICTOR MANUELLEOBARDO CASEYLY Admitting Unavailable WEST, DR MICK Rodas Consulting Unavailable JOYA, DR MARICRUZ Hammonds Primary Care Unavailable DENISHA RUSH Attending Unavailable VICTOR MANUEL, DENISHA Consulting Unavailable VICTOR MANUEL, DENISHA Admitting Unavailable WEST, DR MICK Rodas Consulting Unavailable JOYA, DR MARICRUZ Hammonds Primary Care Unavailable DENISHA RUSH Attending Unavailable VICTOR MANUEL, DENISHA Consulting Unavailable CHARLOTTE, EARNEST Myrick Admitting Unavailable JOYA, DR MARICRUZ Hammonds Primary Care Unavailable ZIEBER, DR SEVEN Gallegos Consulting Unavailable EARNEST PORTER Attending Unavailable EARNEST PORTER Consulting Unavailable AGDIALLOMLÁZARO Consulting Unavailable FIGUEROA GARCIA Consulting Unavailable AMERICO DANIELSON Consulting Unavailable CHARLOTTE, EARNEST Myrick Admitting Unavailable JOYA, DR MARICRUZ Hammonds Primary Care Unavailable HIGHLANDEREARNEST Consulting Unavailable EARNEST PORTER Attending Unavailable JOYA, DR MARICRUZ Hammonds Primary Care Unavailable HIGHLEARNEST LÓPEZ Consulting Unavailable CHARLOTTE, EARNEST Myrick Admitting Unavailable HIGHLMARIBEL, EARNEST Myrick Attending Unavailable CHUCK AGRAWAL Consulting Unavailable VICTOR MANUEL, DENISHA Admitting Unavailable JOYA, DR MARICRUZ Hammonds Primary Care Unavailable VICTOR MANUEL, DENISHA Attending Unavailable VICTOR MANUEL, DENISHA Admitting Unavailable JOYA, DR MARICRUZ Hammonds Primary Care Unavailable VICTOR MANUEL, DENISHA Attending Unavailable VICTOR MANUEL, DENISHA Admitting Unavailable JOYA, DR MARICRUZ Hammonds Primary Care Unavailable IVCTOR MANUELDENISHA CASEY Attending Unavailable WEST, DR MICK Rodas Consulting [...] PORTER Consulting Unavailable EARNEST PORTER Admitting Unavailable MAHNAZ, DR MARICRUZ Hammonds Primary Care Unavailable CHARLOTTE, EARNEST Myrick Attending Unavailable Maricruz Joya Unavailable Shabana Merino Unavailable MD Shabana Merino Attending Provider [phone] MD Maricruz Joya Primary Care Provider Shabana Merino Admitting Unavailable Shabana Merino Attending Unavailable Maricruz Joya Primary Care Unavailable Allergies Allergy Classification Reported Allergen(s) Allergy Type Date of Onset Reaction(s) Facility (4 sources) patient allergy list reviewed by nurse or physicia Propensity to adverse reactions 9 Comment:Done [employer] Other (4 sources) Allergies Reconciled Propensity to adverse reactions Unknown [employer] Other Medications Current Medications Medication Drug Class(es) Dates Sig (Normalized) Sig (Original) Levonorgestrel (4 sources) Progestin, Progestin-containi ng Intrauterine Device Start: 02-01-2019 Mirena (52 MG) 20MCG/24HR Mirena (52 MG)( 20MCG/24HR Intrauterine ) Active -Hx Entry Intrauterine for 0 [facility]:19415-471-59 LOT# [id number] EXP:01/2021 *Pick strength-form from [employer] for eRX* Jan, Active Vitamin D3 50 MCG(1999 UT) (4 sources) Start: 12-13-2021 take 1 tablet by mouth once daily Vitamin D3 50 MCG(2000 UT) Vitamin D3 50 MCG(2000 UT), 1 (one) Tablet daily # 60, 12/13/2021, Ref. x5. Active Oral daily for 0 *Pick strength-form from [employer] for eRX* Dec, Active Problems Active Problems [...] current use of drug therapy; Translations: [Other senior living (current) drug therapy] Episodic Other aftercare (4 sources) Long-term current use of antibiotic; Translations: [bulb tester (current) use of antibiotics] Episodic Other bone [...] 07-23-2018 Episodic Other aftercare (1 source) Other head inspector (current) drug therapy; Translations: [OTH RESIDENTIAL CURRENT DRUG THERAPY] Onset: 01-08-2022 Episodic Other aftercare (1 source) bulb tester (current) use of anticoagulants; Translations: [MACHINE TRIMMER CURRNT USE ANTICOAGULANTS] Onset: 01-08-2022 Episodic Other aftercare (1 source) bulb tester (current) use of oral hypoglycemic drugs; Translations: [RESIDENTIAL USE ORAL HYPOGLYCEMIC DX] Onset: 01-08-2022 Episodic [...] Test Name Value Interpretation Reference Range Facility [facility] echo transthoracicon [facility] echo transthoracic [facility] [place] [address] Echocardiogram Signed Patient: Laina Lara MR#: [id number] : 1975 Acct:[id number] Age/Sex: 47 / F ADM Date: 03/07/23 Loc: Room: Type: [facility] Attending Dr: Shabana Merino MD Ordering Provider: [...] Signed By: Shabana Merino MD 03/07/23 1252 [facility] POINT OF CARE GLUCOSEon 08 Glucose [Mass/Vol] 136 mg/dL Critically high 74-106 T [facility] Comment on above: Performed By: #### P OCGLUC ####[facility] [address] [place] [id number]. Heidy Corona PREG HCG QUALon 12-27-2021 , QUAL Negative Normal NEGATIVE [facility] Comment on above: Performed By: #### P REG ####[facility] [address] [place] [phone]. Heidy Corona CBC AUTO DIFFon 12-17-2021 BASO # 0.0 103/ul Normal 0.0-0.1 [facility] Comment on above: Performed By: #### C BC ####[facility] [address] [place] [address]Dr. Heidy Cj Basophils/100 WBC (Bld) 0.3 % Normal 0.2-2.0 [facility] Comment on above: Performed By: #### C BC ####[facility] [address] [place], [place] [address]Dr. Heidy Corona EO # 0.2 103/ul Normal 0.0-0.7 [facility] Comment on above: Performed By: #### C BC ####[facility] [address] [place], [place] [address]Dr. Heidy Corona Eosinophils/100 WBC (Bld) 3.1 % Normal 0.9-7.0 [facility] Comment on above: Performed By: #### C BC ####[facility] [address] [place], [place] [address]Dr. Heidy Corona Erythrocyte distribution width (RBC) [Ratio] 13.1 % Normal 11.0-15.0 [facility] Comment on above: Performed By: #### C BC ####[facility] [address] [place], [place] [address]Dr. Heidy Corona Hematocrit (Bld) [Volume fraction] 41.2 % Normal 36.0-48.0 [facility] Comment on above: Performed By: #### C BC ####[facility] [address] [place], [place] [address]Dr. Heidy Corona Hemoglobin (Bld) [Mass/Vol] 13.6 g/dL Normal 12.0-16.0 [facility] Comment on above: Performed By: #### C BC ####[facility] [address] [place] [id number]. Heidy Corona IG # 0.01 10e3/ul Normal 0.00-0.03 [facility] Comment on above: Performed By: #### C BC ####[facility] [address] [place] [id number]. Heidy Corona IG % 0.2 % Normal 0.0-0.5 [facility] Comment on above: Performed By: #### C BC ####[facility] [address] [place] [address]Dr. Heidy Corona LYMPH # 1.2 103/ul Normal 1.2-3.8 [facility] Comment on above: Performed By: #### C BC ####[facility] [address] [place] [address]Dr. Heidy Corona Lymphocytes/100 WBC (Bld) 20.1 % Critically low 20.5-60.0 [facility] Comment on above: Performed By: #### C BC ####[facility] [address] [place] [address]Dr. Heidy Corona MANUAL DIFF REQ NO Normal [facility] Comment on above: Performed By: #### C BC ####[facility] [address] [place] [phone]. Heidy Corona MCH (RBC) [Entitic mass] 29.4 pg Normal 26.7-34.0 [facility] Comment on above: Performed By: #### C BC ####[facility] [address] [place] [id number]. Heidy Corona MCHC (RBC) [Mass/Vol] 33.0 g/dL Normal 29.9-35.2 [facility] Comment on above: Performed By: #### C BC ####[facility] [address] [place] [address]Dr. Heidy Corona MCV (RBC) [Entitic vol] 89.2 fL Normal 81.0-99.0 [facility] Comment on above: Performed By: #### C BC ####[facility] [address] [place] [id number]. Heidy Corona MONO # 0.4 103/ul Normal 0.3-0.8 [facility] Comment on above: Performed By: #### C BC ####[facility] [address] [place] [phone]. Heidy Corona Monocytes/100 WBC (Bld) 6.2 % Normal 1.7-12.0 [facility] Comment on above: Performed By: #### C BC ####[facility] [address] [place] [id number]. Heidy Corona NEUT # 4.1 103/ul Normal 1.4-6.5 [facility] Comment on above: Performed By: #### C BC ####[facility] [address] [place] [address]Dr. Heidy Corona Neutrophils/100 WBC (Bld) 70.1 % Normal 43.0-75.0 [facility] Comment on above: Performed By: #### C BC ####[facility] [address] [place] [address]Dr. Heidy Corona Platelet mean volume (Bld) [Entitic vol] 11.5 fL Normal 9.5-13.5 [facility] Comment on above: Performed By: #### C BC ####[facility] [address] [place] [address]Dr. Heidy Corona PLT 209 103/ul Normal 150-450 [facility] Comment on above: Performed By: #### C BC ####[facility] [address] [place] [id number]. Heidy Corona RBC 4.62 106/ul Normal 4.20-5.40 [facility] Comment on above: Performed By: #### C BC ####[facility] [address] [place] [id number]. Heidy Corona WBC 5.8 103/ul Normal 4.0-11.0 [facility] Comment on above: Performed By: #### C BC ####[facility] [address] [place], [place] [address]GjDr. Heidy Corona PROF CHEM 8 (BAS METB)on Anion gap [Moles/Vol] 11.6 mmol/L Normal [facility] Comment on above: Performed By: #### B MP #### [facility] [address] [address] [address] Heidy Corona Calcium [Mass/Vol] 8.4 mg/dL Critically low 8.5-10.1 [facility] Comment on above: Performed By: #### B MP #### [facility] [address] [address] [address] Heidy Corona Chloride [Moles/Vol] 102 mmol/L Normal 98-107 [facility] Comment on above: Performed By: #### B MP #### [facility] [address] [address] [address] Heidy Corona CO2 [Moles/Vol] 28.2 mmol/L Normal 21.0-32.0 [facility] Comment on above: Performed By: #### B MP #### [facility] [address] [address] [address] Heidy Corona Creatinine [Mass/Vol] 0.68 mg/dL Normal 0.55-1.02 [facility] Comment on above: Performed By: #### B MP #### [facility] [address] [address] [address] Hiedy Corona EGFR-AF TURKISH >60 Normal >=60 [facility] Comment on above: Performed By: #### B MP #### [facility] [address] [address] [address] Heidy Corona EGFR-NON AF TURKISH >60 Normal >=60 [facility] Comment on above: Performed By: #### B MP #### [facility] [address] [address] [address] Heidy Corona Glucose [Mass/Vol] 90 mg/dL Normal 74-106 [facility] Comment on above: Performed By: #### B MP #### [facility] [address] [address] [address] Heidy Corona Potassium [Moles/Vol] 3.8 mmol/L Normal 3.5-5.1 [facility] Comment on above: Performed By: #### B MP #### [facility] [address] [address] [address] Heidy Corona Sodium [Moles/Vol] 138 mmol/L Normal 136-145 [facility] Comment on above: Performed By: #### B MP #### [facility] [address] [address] [address] Heidy Corona Urea nitrogen [Mass/Vol] 10.0 mg/dL Normal 7.0-18.0 [facility] Comment on above: Performed By: #### B MP #### [facility] [address] [address] [address] Heidy Corona Urea nitrogen/Creatinine [Mass ratio] 14.7 mg/mg Normal [facility] Comment on above: Performed By: #### B MP #### [facility] [address] [address] [address] Heidy Corona PROTIMEon 12-17-2021 INR Coag (PPP) [Relative time] 1.07 {INR} Normal [facility] Comment on above: Performed By: #### P T, PTT ####[facility] [address] [place] [address]Dr. Heidy Corona INR GUIDELINES SEE BELOW Normal [facility] Comment on above: Result Comment: KHURRAM RED INR: 2.0 - 3.0 CONDITIONS NOT LISTED BELOW 2.5 - 3.5 FOR PROSTHETIC HEART VALVE REPLACEMENT 2.5 - 3.5 RECURRENT THROMBOSIS Performed By: #### P T, PTT ####[facility] [address] [place] [id number]. Heidy Corona PT Coag (PPP) [Time] 11.5 s Normal 9.0-11.6 [facility] Comment on above: Performed By: #### P T, PTT ####[facility] [address] [place] [address]Dr. Heidy Corona PTTon 12-17-2021 aPTT Coag (Bld) [Time] 29.9 s Normal 22.3-36.2 [facility] Comment on above: Performed By: #### P T, PTT #### [facility] [address] [place] [address] ANKLE RT WO [...] by: MICK KOEHLER Date: 2021-10-23 16:36 Normal [facility] Vital Signs Date Time Vital Sign Value Performing Clinician Facility 02-10-2023 13:40-0400 Body height 165.1 cm Shabana Wilber Other [employer] Other 02-10-2023 13:40-0400 Body mass index (BMI) [Ratio] 39.83 kg/m2 Shabana Wilber Other [employer] Other 02-10-2023 13:40-0400 Body weight 108.59 kg Shabana Merino Other [employer] Other 02-10-2023 13:40-0400 Diastolic blood pressure 84 mm[Hg] Shabana Merino Other [employer] Other 02-10-2023 13:40-0400 SaO2% (BldA) [Mass fraction] 96 % Shabana Merino Other [employer] Other 02-10-2023 13:40-0400 Systolic blood pressure 122 mm[Hg] Shabana Merino Other [employer] Other Encounters Encounter Date Encounter Type Care Provider Facility Start: 03-07-2023 End: 03-07-2023 ambulatory Shabana Clarosoroge Facility:[facility] Start: 03-07-2023 End: 03-07-2023 ambulatory MD Maricruz Joya Work Phone: [facility] Work Phone: Start: 03-07-2023 End: 03-07-2023 Patient encounter procedure MD Maricruz Joya Work Phone: [facility] Work Phone: Start: 03-03-2023 End: 03-03-2023 ambulatory Shabana Merino Other [employer] Other Start: 03-03-2023 Telephone encounter Shabana Merino [facility] Start: 02-11-2023 End: 02-11-2023 ambulatory Shabana Merino Other [employer] Other Start: 02-11-2023 Telephone encounter Shabana Merino [facility] [employer] Start: 02-10-2023 End: 02-10-2023 ambulatory Shabana Merino Other [employer] Other Start: 02-10-2023 Office outpatient ne w 30 minutes Shabana Merino [facility] Start: 01-30-2023 End: 01-30-2023 ambulatory Maricruz Joya Other [employer] Other Start: 01-30-2023 Telephone encounter Maricruz Joya [facility] Start: 09-18-2022 ambulatory EARNEST PORTER Faci lity:H1 Start: 06-26-2022 End: 06-27-2022 ambulatory EARNEST PORTER Facility:[facility] Start: 05-05-2022 End: 06-15-2022 ambulatory DENISHA VICTOR MANUEL Facility:[facility] Start: 05-01-2022 Gynecological examin ation normal Maricruz Joya Other [employer] Other Start: 03-20-2022 End: 03-21-2022 ambulatory EARNEST WANANDER Facility:[facility] Start: 02-13-2022 End: 05-04-2022 ambulatory DENISHA VICTOR MANUEL Facility:[facility] Start: 02-07-2022 End: 02-08-2022 ambulatory DENISHA VICTOR MANUEL Facility:[facility] Start: 01-17-2022 End: 01-18-2022 ambulatory DENISHA VICTOR MANUEL Facility:[facility] Start: 12-27-2021 End: 12-27-2021 ambulatory EARNEST PORTER Facility:[facility] Start: 12-24-2021 ambulatory EARNEST PORTER Faci lity:H1 Start: 12-18-2021 Encounter for preprocedural cardiovascular examination EARNEST Myrick [facility] Start: 12-18-2021 Encounter for preprocedural laboratory examination EARNEST Elen [facility] Start: 12-17-2021 End: 12-18-[address] [...] Date Payer Category Payer Self-pay 1975 Unknown [id number] 1975 Unknown [id number] 1975 Unknown [id number] 1975 Unknown [id number] 1975 Unknown [id number] 1975 Unknown [id number] 1975 Unknown [id number] [id number] 1975 Unknown [id number] [id number] 1975 Unknown [id number] [id number] 1975 Unknown [id number] [id number] 1975 Unknown [id number] [id number] 1975 Unknown [id number] [id number] 1975 Unknown [id number] [id number] 1958 Private Health Insurance [id number] Private Health Insurance [facility] [id number] Unknown [id number] Social History Date Type Detail Facility Unknown if ever smoked [employer] Other Sex Assigned At Sex Assigned At Bir th [employer] Other Start: 1975 Sex Assigned At Female [facility] Clinical Notes 09-07-2021 to 02-10-2023 Note Date [...] of compression stockings.-Foll ow-up in a month [employer] Other [id number] NotePROCEDURE: XR ANKLE RT MIN 3 VIEWS [...] Electronically authenticated by: SEVEN GARCIA Date: 2022-06-26 17:04[facility]11-17-2022 NotePROCEDURE: XR ANKLE RT MIN 3 [...] Electronically authenticated by: SEVEN GARCIA Date: 2022-03-21 06:50[facility]10-06-2022 NotePROCEDURE: XR ANKLE RT MIN 3 VIEWS COMPARISON: 01/17/2022 HISTORY: Pain FINDINGS: BONES: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 Anatomic alignment. Moderate plantar enthesopathic spurring of the calcaneus SOFT TISSUES:Moderate diffuse soft tissue swelling. Interval removal of surgical skin margarita. EFFUSION:None visible. OTHER: Negative. IMPRESSION: Stable ankle replacement Electronically authenticated by: MICK KOEHLER Date: 2022-02-07 17:43[facility]09-15-2022 NotePROCEDURE: XR ANKLE RT MIN 3 [...] Electronically authenticated by: MICK KOEHLER Date: 2022-01-17 11:18[facility]08-26-2022 NotePROCEDURE: XR ANKLE RT 2V HISTORY: Pain COMPARISON: XR ankle right 10/18/2021 FINDINGS: BONES:Multiple intraoperative spot fluoroscopic images were obtained during replacement of the articular surface polycomponent of the tibial plafond prosthesis. IMPRESSION: 1. Intraoperative surgical revision/repair. Electronically authenticated by: SEVEN GARCIA Date: 2021-12-28 09:56[facility]08-26-2022 NotePROCEDURE: XR ANKLE RT MIN 3 [...] Electronically authenticated by: SEVEN GARCIA Date: 2021-12-28 07:54[facility]08-01-2022 History general Narrative - Reported* Type Description Date Medical History eosinophilic esophagitis Medical History GERD Surgical History C section Surgical History Foot Surgery-RIGHT 12/2021 Surgical History Rt. 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/2020 [facility] [employer] Other 06-16-2022 NotePROCEDURE: XR ANKLE RT MIN [...] Electronically authenticated by: SEVEN GARCIA Date: 2021-10-18 16:47[facility]05-06-2022 NotePROCEDURE: XR ANKLE RT MIN 3 [...] Electronically authenticated by: MICK KOEHLER Date: 2021-09-07 07:14[facility] [employer] Other Evaluation noteNo assessment information available [facility] Work Phone: Summary Purpose Family History No Family History Records FoundNo Family History Records Found Advance Directives No Advanced Directives Records Found Advance Directive Response Recorded Date/ Time Advance Directives No October 30th, 2023 11:19am Chief Complaint and Reason for Visit Chief Complaint R55 Additional Source Comments INFORMATION SOURCE (unrecogn ized section and content) DATE CREATED AUTHOR 09/02/2022 [facility] DATE CREATED AUTHOR AUTHOR'S ORGANNORBERTO ATION 03/08/2023 [facility] REASON FOR VISIT (unrecogniz ed section [...] BE BASED ON THE PRIMARY CLINICAL RECORDS. [employer] provides no warranty or guarantee of the accuracy or completeness of information in this document.
[2023-10-03 10:47] LABS: Alanine Aminotransferase 22 U/L (14-59); Albumin Globulin Ratio 0.9; Albumin Level 3.7 g/dL (3.4-5.0); Alkaline Phosphatase 78 U/L (46-116); Anion Gap 10.8; Aspartate Amino Transferase 14 U/L (15-37); Bilirubin Total 1.1 mg/dL (0.2-1.0); Calcium 8.7 mg/dL (8.5-10.1); Carbon Dioxide 30.2 mmol/L (21.0-32.0); Chloride 102 mmol/L (98-107); Chol HDL Ratio 3.1; Cholesterol 191 mg/dL (<=200); Estimated GFR (African America >60 (>=60); Estimated GFR (Non-African Ame >60 (>=60); Glucose 88 mg/dL (74-106); HDL Cholesterol 62 mg/dL (40-60); Sodium 139 mmol/L (136-145); Total Protein 7.7 g/dL (6.4-8.2); Triglycerides 58 mg/dL (<=150); VLDL CHOLESTEROL 11.6 mg/dL
== END 2023-10-03 09:54 | disposition home or self-care (01) ==
LOC: LAB 09:58
PROVIDERS: PCP Family Medicine; Visit Provider Nurse Practitioner Family
DX: E56.9 Vitamin deficiency, unspecified (principal); Z68.41 Body mass index [BMI] 40.0-44.9, adult; E66.9 Obesity, unspecified; Z87.898 Personal history of other specified conditions
CPT/HCPCS: 36415; 80053; 80061; 82306; 82607

== ENCOUNTER 2024-01-29 19:42 | Outpatient (REF) | payer OTHER, SELFPAY ==
--- OUTSIDE RECORDS SUMMARY | 2024-01-29 19:45 | XMS_ITS | CCD ---
Author Organization [facility] Care Team Providers Care Director Of Hospitality Name Role Phone DENISHA RUSH Admitting Unavailable WEST, DR MICK Rodas Consulting Unavailable JOYA, DR MARICRUZ Hammonds Primary Care Unavailable DENISHA RUSH Attending Unavailable VICTOR MANUEL, DENISHA Consulting Unavailable SWATHI RUSHBERLY Admitting Unavailable ZIEBER, DR SEVEN Gallegos Consulting Unavailable JOYA, DR MARICRUZ Hammonds Primary Care Unavailable DENISHA RUSH Attending Unavailable VICTOR MANUEL, DENISHA Consulting Unavailable VICTOR MANUELLEOBARDO CASEYLY Admitting Unavailable WEST, DR MICK Rodas Consulting Unavailable JOYA, DR MARICRUZ Hammonds Primary Care Unavailable DENISHA RUSH Attending Unavailable VICTOR MANUEL, DENISHA Consulting Unavailable VICTOR MANUEL, DENISHA Admitting Unavailable WEST, DR MICK Rodas Consulting Unavailable JOAY, DR MARICRUZ Hammonds Primary Care Unavailable DENISHA [...] VICTOR MANUEL, DENISHA Admitting Unavailable JOYA, DR MRAICRUZ Hammonds Primary Care Unavailable VICTOR MANUEL, DENISHA Attending Unavailable VICTOR MANUEL, DENISHA Admitting Unavailable JOYA, DR MARICRUZ Hammonds Primary Care Unavailable VICTOR MANUEL, DENISHA Attending Unavailable VICTOR MANUEL, DENISHA Admitting Unavailable JOYA, DR MARICRUZ Hammonds Primary Care Unavailable VICTOR MANUELDENISHA CASEY Attending Unavailable WEST, DR MICK [...] Merino Unavailable MD Shabana Merino Attending Provider [phone] MD Maricruz Joya Primary Care Provider [phone] Shabana Merino Admitting Unavailable Shabana Merino Attending Unavailable Maricruz Joya Primary Care Unavailable Allergies Allergy Classification Reported Allergen(s) Allergy Type Date of Onset Reaction(s) Facility (4 sources) patient allergy list reviewed by nurse or physicia Propensity to adverse reactions 9 Comment:Done [facility] Other (4 sources) Allergies Reconciled Propensity to adverse reactions Unknown [facility] Other Medications Current Medications Medication Drug Class(es) Dates Sig (Normalized) Sig (Original) Levonorgestrel (4 sources) Progestin, Progestin-containi ng Intrauterine Device Start: 02-01-2019 Mirena (52 MG) 20MCG/24HR Mirena (52 MG)( 20MCG/24HR Intrauterine ) Active -Hx Entry Intrauterine for 0 [facility]:35958-354-00 LOT# [id number] EXP:01/2021 *Pick strength-form from [employer] for eRX* Jan, Active Vitamin D3 50 MCG(1999 UT) (4 sources) Start: 12-13-2021 take 1 tablet by mouth once daily Vitamin D3 50 MCG(2000 UT) Vitamin D3 50 MCG(2000 UT), 1 (one) Tablet daily # 60, 12/13/2021, Ref. x5. Active Oral daily for 0 *Pick strength-form from [employer] for eRX* Dec, Active Problems Active Problems [...] current use of drug therapy; Translations: [Other meterman (current) drug therapy] Episodic Other aftercare (4 sources) Long-term current use of antibiotic; Translations: [assisted (current) use of antibiotics] Episodic Other bone [...] 07-23-2018 Episodic Other aftercare (1 source) Other meterman (current) drug therapy; Translations: [OTH SPOT CLEANER CURRENT DRUG THERAPY] Onset: 01-08-2022 Episodic Other aftercare (1 source) watermaster (current) use of anticoagulants; Translations: [ASSISTED CURRNT USE ANTICOAGULANTS] Onset: 01-08-2022 Episodic Other aftercare (1 source) assisted (current) use of oral hypoglycemic drugs; Translations: [SPOT CLEANER USE ORAL HYPOGLYCEMIC DX] Onset: 01-08-2022 Episodic [...] Interpretation Reference Range Facility [facility] echo transthoracicon [facility] echo transthoracic [facility] [place] [address] Echocardiogram Signed Patient: Laina Lara MR#: [id number] : 1975 Acct:[id number] Age/Sex: 47 / F ADM Date: 03/07/23 Loc: Room: Type: [facility] Attending Dr: Shabana Merino MD Ordering Provider: [...] Signed By: Shabana Merino MD 03/07/23 1252 [facility] POINT OF CARE GLUCOSEon 08 Glucose [Mass/Vol] 136 mg/dL Critically high 74-106 T [facility] Comment on above: Performed By: #### P OCGLUC ####[facility] [address] [place] [id number]. Heidy Corona PREG HCG QUALon 12-27-2021 , QUAL Negative Normal NEGATIVE [facility] Comment on above: Performed By: #### P REG ####[facility] [address] [place] [phone]. Heidy Corona CBC AUTO DIFFon 12-17-2021 BASO # 0.0 103/ul Normal 0.0-0.1 [facility] Comment on above: Performed By: #### C BC ####[facility] [address] [address]Dr. Heidy Cj Basophils/100 WBC (Bld) 0.3 % Normal 0.2-2.0 [facility] Comment on above: Performed By: #### C BC ####[facility] [address] [place], [place] [address]Dr. Heidy Corona EO # 0.2 103/ul Normal 0.0-0.7 [facility] Comment on above: Performed By: #### C BC ####[facility] [address] [place], [place] [address]Dr. Heidy Corona Eosinophils/100 WBC (Bld) 3.1 % Normal 0.9-7.0 [facility] Comment on above: Performed By: #### C BC ####[facility] [address] [place], [place] [address]Dr. Heidy Corona Erythrocyte distribution width (RBC) [Ratio] 13.1 % Normal 11.0-15.0 [facility] Comment on above: Performed By: #### C BC ####[facility] [address] [place], [place] [address]Dr. Heidy Corona Hematocrit (Bld) [Volume fraction] 41.2 % Normal 36.0-48.0 [facility] Comment on above: Performed By: #### C BC ####[facility] [address] [place], [place] [address]Dr. Heidy Corona Hemoglobin (Bld) [Mass/Vol] 13.6 g/dL Normal 12.0-16.0 [facility] Comment on above: Performed By: #### C BC ####[facility] [address] [place] [id number]. Heidy Corona IG # 0.01 10e3/ul Normal 0.00-0.03 [facility] Comment on above: Performed By: #### C BC ####[facility] [address] [place] [id number]. Heidy Corona IG % 0.2 % Normal 0.0-0.5 [facility] Comment on above: Performed By: #### C BC ####[facility] [address] [address]Dr. Heidy Corona LYMPH # 1.2 103/ul Normal 1.2-3.8 [facility] Comment on above: Performed By: #### C BC ####[facility] [address] [place] [address]Dr. Heidy Corona Lymphocytes/100 WBC (Bld) 20.1 % Critically low 20.5-60.0 [facility] Comment on above: Performed By: #### C BC ####[facility] [address] [place] [address]Dr. Heidy Corona MANUAL DIFF REQ NO Normal [facility] Comment on above: Performed By: #### C BC ####[facility] [address] [place] [phone]. Heidy Corona MCH (RBC) [Entitic mass] 29.4 pg Normal 26.7-34.0 [facility] Comment on above: Performed By: #### C BC ####[facility] [address] [place] [id number]. Heidy Corona MCHC (RBC) [Mass/Vol] 33.0 g/dL Normal 29.9-35.2 [facility] Comment on above: Performed By: #### C BC ####[facility] [address] [place] [address]Dr. Heidy Corona MCV (RBC) [Entitic vol] 89.2 fL Normal 81.0-99.0 [facility] Comment on above: Performed By: #### C BC ####[facility] [address] [place] [id number]. Heidy Corona MONO # 0.4 103/ul Normal 0.3-0.8 [facility] Comment on above: Performed By: #### C BC ####[facility] [address] [place] [id number]. Heidy Corona Monocytes/100 WBC (Bld) 6.2 % Normal 1.7-12.0 [facility] Comment on above: Performed By: #### C BC ####[facility] [address] [place] [id number]. Heidy Corona NEUT # 4.1 103/ul Normal 1.4-6.5 [facility] Comment on above: Performed By: #### C BC ####[facility] [address] [place] [address]Dr. Heidy Corona Neutrophils/100 WBC (Bld) 70.1 % Normal 43.0-75.0 [facility] Comment on above: Performed By: #### C BC ####[facility] [address] [place] [address]Dr. Heidy Corona Platelet mean volume (Bld) [Entitic vol] 11.5 fL Normal 9.5-13.5 [facility] Comment on above: Performed By: #### C BC ####[facility] [address] [place] [address]Dr. Heidy Corona PLT 209 103/ul Normal 150-450 [facility] Comment on above: Performed By: #### C BC ####[facility] [address] [place] [id number]. Heidy Corona RBC 4.62 106/ul Normal 4.20-5.40 [facility] Comment on above: Performed By: #### C BC ####[facility] [address] [place] [phone]. Heidy Corona WBC 5.8 103/ul Normal 4.0-11.0 [facility] Comment on above: Performed By: #### C BC ####[facility] [address] [place], [place] [address]QfDr. Heidy Corona PROF CHEM 8 (BAS METB)on Anion gap [Moles/Vol] 11.6 mmol/L Normal [facility] Comment on above: Performed By: #### B MP #### [facility] [address] [address] [address] Heidy Corona Calcium [Mass/Vol] 8.4 mg/dL Critically low 8.5-10.1 Th [facility] Comment on above: Performed By: #### B MP #### [facility] [address] [address] [address] Heidy Corona Chloride [Moles/Vol] 102 mmol/L Normal 98-107 [facility] Comment on above: Performed By: #### B MP #### [facility] [address] [address] [address] Heidy Corona CO2 [Moles/Vol] 28.2 mmol/L Normal 21.0-32.0 [facility] Comment on above: Performed By: #### B MP #### [facility] [address] [address] [address] Heidy Corona Creatinine [Mass/Vol] 0.68 mg/dL Normal 0.55-1.02 [facility] Comment on above: Performed By: #### B MP #### [facility] [address] [address] [address] Heidy Corona EGFR-AF SAO TOMEAN >60 Normal >=60 [facility] Comment on above: Performed By: #### B MP #### [facility] [address] [address] [address] Heidy Corona EGFR-NON AF SAO TOMEAN >60 Normal >=60 [facility] Comment on above: Performed By: #### B MP #### [facility] [address] [address] [address] Heidy Corona Glucose [Mass/Vol] 90 mg/dL Normal 74-106 [facility] Comment on above: Performed By: #### B MP #### [facility] [address] [address] [address] Heidy Corona Potassium [Moles/Vol] 3.8 mmol/L Normal 3.5-5.1 [facility] Comment on above: Performed By: #### B MP #### [facility] [address] [address] [address] Heidy Corona Sodium [Moles/Vol] 138 mmol/L Normal 136-145 The [facility] Comment on above: Performed By: #### B MP #### [facility] [address] [address] [address] Heidy Corona Urea nitrogen [Mass/Vol] 10.0 mg/dL Normal 7.0-18.0 [facility] Comment on above: Performed By: #### B MP #### [facility] [address] [address] [address] Heidy Corona Urea nitrogen/Creatinine [Mass ratio] 14.7 mg/mg Normal [facility] Comment on above: Performed By: #### B MP #### [facility] [address] [address] [address] Heidy Corona PROTIMEon 12-17-2021 INR Coag (PPP) [Relative time] 1.07 {INR} Normal [facility] Comment on above: Performed By: #### P T, PTT ####[facility] [address] [address]Dr. Heidy Corona INR GUIDELINES SEE BELOW Normal [facility] Comment on above: Result Comment: KHURRAM RED INR: 2.0 - 3.0 CONDITIONS NOT LISTED BELOW 2.5 - 3.5 FOR PROSTHETIC HEART VALVE REPLACEMENT 2.5 - 3.5 RECURRENT THROMBOSIS Performed By: #### P T, PTT ####[facility] [address] [place] [id number]. Hiedy Corona PT Coag (PPP) [Time] 11.5 s Normal 9.0-11.6 [facility] Comment on above: Performed By: #### P T, PTT ####[facility] [address] [place] [address]Dr. Heidy Corona PTTon 12-17-2021 aPTT Coag (Bld) [Time] 29.9 s Normal 22.3-36.2 [facility] Comment on above: Performed By: #### P T, PTT #### [facility] [address] [place] [address] ANKLE RT WO [...] by: MICK KOEHLER Date: 2021-10-23 16:36 Normal [facility] Vital Signs Date Time Vital Sign Value Performing Clinician Facility 02-10-2023 13:40-0400 Body height 165.1 cm Shabana Wliber Other [facility] Other 02-10-2023 13:40-0400 Body mass index (BMI) [Ratio] 39.83 kg/m2 Shabana Wilber Other [facility] Other 02-10-2023 13:40-0400 Body weight 108.59 kg Shabana Merino Other [facility] Other 02-10-2023 13:40-0400 Diastolic blood pressure 84 mm[Hg] Shabana Merino Other [facility] Other 02-10-2023 13:40-0400 SaO2% (BldA) [Mass fraction] 96 % Shabana Merino Other [facility] Other 02-10-2023 13:40-0400 Systolic blood pressure 122 mm[Hg] Shabana Merino Other [facility] Other Encounters Encounter Date Encounter Type Care Provider Facility Start: 03-07-2023 End: 03-07-2023 ambulatory Shabana Clarosoroge Facility:[facility] Start: 03-07-2023 End: 03-07-2023 ambulatory MD Maricruz Joya Work Phone: [facility] Work Phone: Start: 03-07-2023 End: 03-07-2023 Patient encounter procedure MD Maricruz Joya Work Phone: [facility] Work Phone: Start: 03-03-2023 End: 03-03-2023 ambulatory Shabana Merino Other [facility] Other Start: 03-03-2023 Telephone encounter Shabana Merino [facility] Start: 02-11-2023 End: 02-11-2023 ambulatory Shabana Merino Other [facility] Other Start: 02-11-2023 Telephone encounter Shabana Merino [facility] Start: 02-10-2023 End: 02-10-2023 ambulatory Shabana Merino Other [facility] Other Start: 02-10-2023 Office outpatient ne w 30 minutes Shabana Merino [facility] Start: 01-30-2023 End: 01-30-2023 ambulatory Maricruz Jyoa Other [facility] Other Start: 01-30-2023 Telephone encounter Maricruz Joya [facility] Start: 09-18-2022 ambulatory EARNEST PORTER Faci lity:[facility] Start: 06-26-2022 End: 06-27-2022 ambulatory EARNEST PORTER Facility:[facility] Start: 05-05-2022 End: 06-15-2022 ambulatory DENISHA VICTOR MANUEL Facility:[facility] Start: 05-01-2022 Gynecological examin ation normal Maricruz Joya Other [facility] Other Start: 03-20-2022 End: 03-21-2022 ambulatory EARNEST WANANDER Facility:[facility] Start: 02-13-2022 End: 05-04-2022 ambulatory DENISHA VICTOR MANUEL Facility:[facility] Start: 02-07-2022 End: 02-08-2022 ambulatory DENISHA VICTOR MANUEL Facility:[facility] Start: 01-17-2022 End: 01-18-2022 ambulatory DENISHA VICTOR MANUEL Facility:[facility] Start: 12-27-2021 End: 12-27-2021 ambulatory EARNEST PORTER Facility:[facility] Start: 12-24-2021 ambulatory EARNEST PORTER Faci lity:[facility] Start: 12-18-2021 Encounter for preprocedural cardiovascular examination EARNEST Myrick [facility] Start: 12-18-2021 Encounter for preprocedural laboratory examination EARNEST Elen [facility] Start: 12-17-2021 End: 12-18-[address] MARICRUZ [...] Date Payer Category Payer Self-pay 1975 Unknown [id number] 1975 Unknown [id number] 1975 Unknown [id number] 1975 Unknown [id number] 1975 Unknown [id number] [id number] 1975 Unknown [id number] 1975 Unknown [id number] [id number] 1975 Unknown [id number] [id number] 1975 Unknown [id number] [id number] 1975 Unknown [id number] [id number] 1975 Unknown [id number] [id number] 1975 Unknown [id number] [id number] 1975 Unknown [id number] 1958 Private Health Insurance [id number] Private Health Insurance [facility] [id number] Unknown [id number] Social History Date Type Detail Facility Unknown if ever smoked [facility] Other Sex Assigned At Sex Assigned At Bir th [facility] Other Start: 1975 Sex Assigned At Female F [facility] Clinical Notes 09-07-2021 to 02-10-2023 Note [...] of compression stockings.-Foll ow-up in a month [facility] Other [id number] NotePROCEDURE: XR ANKLE RT MIN 3 VIEWS [...] Electronically authenticated by: SEVEN GARCIA Date: 2022-06-26 17:04[facility]11-17-2022 NotePROCEDURE: XR ANKLE RT MIN [...] Electronically authenticated by: SEVEN GARCIA Date: 2022-03-21 06:50[facility]10-06-2022 NotePROCEDURE: XR ANKLE RT MIN 3 VIEWS COMPARISON: 01/17/2022 HISTORY: Pain FINDINGS: BONES: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 Anatomic alignment. Moderate plantar enthesopathic spurring of the calcaneus SOFT TISSUES:Moderate diffuse soft tissue swelling. Interval removal of surgical skin margarita. EFFUSION:None visible. OTHER: Negative. IMPRESSION: Stable ankle replacement Electronically authenticated by: MICK KOEHLER Date: 2022-02-07 17:43[facility]09-15-2022 NotePROCEDURE: XR ANKLE RT MIN [...] Electronically authenticated by: MICK KOEHLER Date: 2022-01-17 11:18[facility]08-26-2022 NotePROCEDURE: XR ANKLE RT 2V HISTORY: Pain COMPARISON: XR ankle right 10/18/2021 FINDINGS: BONES:Multiple intraoperative spot fluoroscopic images were obtained during replacement of the articular surface polycomponent of the tibial plafond prosthesis. IMPRESSION: 1. Intraoperative surgical revision/repair. Electronically authenticated by: SEVEN GARCIA Date: 2021-12-28 09:56[facility]08-26-2022 NotePROCEDURE: XR ANKLE RT MIN [...] Electronically authenticated by: SEVEN GARCIA Date: 2021-12-28 07:54[facility]08-01-2022 History general Narrative - Reported* Type Description Date Medical History eosinophilic esophagitis Medical History GERD Surgical History C section Surgical History Foot Surgery-RIGHT 12/2021 Surgical History Rt. 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/2020 [facility] Other 06-16-2022 NotePROCEDURE: XR ANKLE RT MIN [...] Electronically authenticated by: SEVEN GARCIA Date: 2021-10-18 16:47[facility]05-06-2022 NotePROCEDURE: XR ANKLE RT MIN [...] MICK KOEHLER Date: 2021-09-07 07:14[facility] noteNo InformationNort[facility] Other Evaluation noteNo assessment information available [facility] Work Phone: Summary Purpose Family History No [...] DATE CREATED AUTHOR AUTHOR'S ORGANNORBERTO ATION 03/08/2023 [facility] REASON FOR VISIT (unrecogniz ed section [...] BE BASED ON THE PRIMARY CLINICAL RECORDS. [employer] provides no warranty or guarantee of the accuracy or completeness of information in this document.
== END 2024-01-29 19:43 | disposition home or self-care (01) ==
LOC: LAB 19:42
PROVIDERS: PCP Family Medicine; Visit Provider Obstetrics & Gynecology
DX: Z01.419 Encounter for gynecological examination (general) (routine) without abnormal findings (principal)
CPT/HCPCS: 87624; 88175

== ENCOUNTER 2024-02-26 09:58 | Outpatient (OUT) | payer OTHER, SELFPAY ==
--- NOTE | 2024-02-26 10:00 | MM_ITS ---
Patient Name: DOUG BARROSO MR#: [id number] : 1975 Exam Date: 02/26/2024 Ordering Doctor: DR Refugio Mcconnell . RADIOLOGY REPORT PROCEDURE: MM TOMOSYNTHESIS SCREENING BI COMPARISON: MG MAMM SCREEN 3D YOSI CAD, 01/26/2021. MG MAMM LT DIAG FU, 10/26/2018. MG MAMM SCREEN YOSI W CAD, 10/08/2018. INDICATIONS: Screening Calculator Name NCI Breast Cancer Risk Assessment Tool 5 Year Breast Cancer Risk Not Reported. Lifetime Breast Cancer Risk Not Reported. Personal Breast Cancer No Personal Ovarian Cancer No Treatments None Family Cancers None LOCATION: [facility] BREAST COMPOSITION: There are scattered areas of fibroglandular density. FINDINGS: DIAGNOSTIC CATEGORY 1--NEGATIVE. RIGHT BREAST: No significant suspicious finding. No significant change has occurred. LEFT BREAST: No significant suspicious finding. No significant change has occurred. RECOMMENDATIONS: ROUTINE MAMMOGRAM AND CLINICAL EVALUATION IN 12 MONTHS. PLEASE NOTE: A NORMAL MAMMOGRAM DOES NOT EXCLUDE THE POSSIBILITY OF BREAST CANCER. A CLINICALLY SUSPICIOUS PALPABLE LUMP SHOULD BE BIOPSIED. Dictated by: Heri Chambers M.D. on 02/29/2024 at 19:04 Approved by: Heri Chambers M.D. on 02/29/2024 at 19:06
--- OUTSIDE RECORDS SUMMARY | 2024-02-26 10:02 | XMS_ITS | CCD ---
Author Organization [facility] Care Team Providers Care Hand Spring Repairer Name Role Phone DENISHA RUSH Admitting Unavailable WEST, DR MICK Rodas Consulting Unavailable JOYA, DR MARICRUZ Hammonds Primary Care Unavailable DENISHA RUSH Attending Unavailable VICTOR MANUEL, DENISHA Consulting Unavailable VICTOR MANUEL, DENISHA Admitting Unavailable ZIEBER, DR SEVEN Gallegos Consulting Unavailable JOYA, DR MARICRUZ Hammonds Primary Care Unavailable VICTOR MANUEL, DENISHA Attending Unavailable VICTOR MANUELDENISHA CASEY Consulting Unavailable SWATHI RUSHBERLY Admitting Unavailable WEST, DR MICK Rodas Consulting [...] PORTER Attending Unavailable EARNEST PORTER Consulting Unavailable LÁZARO GARZA Consulting Unavailable FIGUEROA GARCIA Consulting Unavailable AMERICO DANIELSON Consulting Unavailable CHARLOTTE, EARNEST Myrick Admitting Unavailable JOYA, DR MARICRUZ Hammonds Primary Care Unavailable EARNEST PORTER Consulting Unavailable EARNEST PORTER Attending Unavailable JOYA, DR MARICRUZ Hammonds Primary Care Unavailable EARNEST PORTER Consulting Unavailable EARNEST PORTER Admitting Unavailable EARNEST PORTER Attending Unavailable CHUCK AGRAWAL Consulting Unavailable VICTOR MANUEL, DENISHA Admitting Unavailable JOYA, DR MARICRUZ Hammonds Primary Care Unavailable DENISHA RUSH Attending Unavailable VICTOR MANUEL, DENISHA Admitting Unavailable JOYA, DR MARICRUZ Hammonds Primary Care Unavailable VICTOR MANUEL, DENISHA Attending Unavailable VICTOR MANUEL, DENISHA Admitting Unavailable JOYA, DR MARICRUZ Hammonds Primary Care Unavailable VICTOR MANUEL, DENISHA Attending Unavailable ZAKIA, DR MICK Rodas Consulting Unavailable DENISHA RUSH Consulting Unavailable EARNEST PORTER Admitting Unavailable RADHA, DR SEVEN Gallegos Consulting Unavailable MAHNAZ, DR MARICRUZ Hammonds Primary Care Unavailable CHARLOTTE, EARNEST Myrick Attending Unavailable CHARLOTTE, PETER Elen Consulting Unavailable HIGHLMARIBEL, PETER D Admitting Unavailable RADHA, DR SEVEN Gallegos Consulting Unavailable CHARLOTTE, EARNEST Myrick Attending Unavailable MAHNAZ, DR MARICRUZ Hammonds Primary Care Unavailable CHARLOTTE, EARNEST Myrick Consulting Unavailable CHARLOTTE, EARNEST Myrick Admitting Unavailable JOYA, DR MARICRUZ Hammonds Primary Care Unavailable CHARLOTTE, EARNEST Myrick Attending Unavailable Maricruz Joya Unavailable Shabana Merino Unavailable MD Shabana Merino Attending Provider [phone] MD Maricruz Joya Primary Care Provider Maricruz Joya MD Primary Care Provider [phone] MD Maricruz Joya Primary Care Provider [phone] QUIRINO Diaz Attending Provider [phone] Shabana Merino Admitting Unavailable Shabana Merino Attending Unavailable Maricruz Joya Primary Care Unavailable Cielo Diaz Admitting Unavailable Cielo Diaz Attending Unavailable Maricruz Joya Primary Care Unavailable ARON MCCONNELL Attending Unavailable ARON MCCONNELL Attending Unavailable Allergies Allergy Classification Reported Allergen(s) Allergy Type Date of Onset Reaction(s) Facility (4 sources) patient allergy list reviewed by nurse or physicia Propensity to adverse reactions Comment:Done Pay-Me Other (4 sources) Allergies Reconciled Propensity to adverse reactions Unknown Pay-Me Other Medications Current Medications Medication Drug Class(es) Dates Sig (Normalized) Sig (Original) Albuterol (1 source) beta2-Adrenergic Agonist Start: 02-11-2024 Albuterol Sulfate Active 2 INH INHALATION EVERY 4-6 HOURS 6.7 February 11, 2024 12:00am Azithromycin (1 source) Macrolide Antimicrobial Start: 02-11-2024 Azithromycin Active 0 PO .COMPLEX February 11, 2024 12:00am For 250 mg dose pack: take 500 mg today (day 1), then 250 mg for 4 days (days 2-5) PO cholecalciferol 1.25 mg oral capsule (1 source) Vitamin D Start: 10-28-2023 take 1250 ug by mouth every week Cholecalciferol (Vitamin D3) Active 1250 MCG PO every week 8 October 28, 2023 12:00am ibuprofen 200 mg oral tablet (3 sources) Nonsteroidal Anti-inflammatory Drug Start: 09-10-2023 take 1 tablet by mouth every eight hours as needed for pain ibuprofen 200 MG tablet Take 200 mg by mouth every 8 (eight) hours if needed for mild pain 09/10/2023 Active levonorgestrel 0.519979 mg/hr intrauterine system (6 sources) Progestin, Progestin-containi ng Intrauterine Device Start: 02-23-2024 End: 02-21-2029 Levonorgestrel intrauterine device 52 mg Start: 02-01-2019 Mirena (52 MG) 20MCG/24HR Mirena (52 MG)( 20MCG/24HR Intrauterine ) Active -Hx Entry Intrauterine for 0 [facility]:43585-834-09 LOT# [id number] EXP:01/2021 *Pick strength-form from [employer] for eRX* Jan, Active methylPREDNISolone 4 mg oral tablet (1 source) Corticosteroid Start: 02-11-2024 take 1 tablet by mouth once Methylprednisolone (Medrol (Evangelista)) 4 mg tablets,dose pack Active 0 PO per package directions February 11, 2024 12:00am PO PER PKG DIR semaglutide (Ozempic) 4 MG/3ML solution pen-injector (2 sources) inject 1 mg by subcutaneous injection every week semaglutide (Ozempic) 4 MG/3ML solution pen-injector Inject 1 mg under the skin 1 (one) time per week Active Semaglutide Base (1 source) Start: 12-22-2023 inject 1 mL by subcutaneous injection every week Semaglutide Base Active 0.25 ML SUBCUT every week December 22, 2023 12:00am [facility] Pre-filled Syringes using Semaglutide Base. Dispense 1 mL = (Four 0.25 mL pre-filled syringes) Vitamin D3 50 MCG(2000 UT) (4 sources) Start: 12-13-2021 take 1 tablet by mouth once daily Vitamin D3 50 MCG(2000 UT) Vitamin D3 50 MCG(2000 UT), 1 (one) Tablet daily # 60, 12/13/2021, Ref. x5. Active Oral daily for 0 *Pick strength-form from [employer] for eRX* 11 Dec, 2021 Active Problems Active Problems Problem Classification Problem Date Documented Da te Episodic/Chronic Acute bronchitis (6 sources) Acute bronchitis; Translations: [Acute bronchitis] Onset: 09-27-2016 02-11-2024 Episodic Administrative/social admission (12 sources) Dietary management surveillance; Translations: [Dietary counseling and surveillance] Episodic Anxiety disorders (5 sources) Anxiety disorder, unspecified; Translations: [Anxiety disorder] Onset: 01-08-2022 Chronic Contraceptive and procreative management (7 sources) Surveillance of intrauterine device contraception; Translations: [Encounter for routine checking of intrauterine contraceptive device] Onset: 02-23-2024 02-23-2024 Episodic Esophageal disorders (4 sources) Eosinophilic esophagitis; [...] found on diagnostic imaging of breast] Episodic Nutritional deficiencies (3 sources) Vitamin deficiency; Translations: [Vitamin deficiency, unspecified] 10-01-2023 Episodic Osteoarthritis (9 sources) Primary osteoarthritis, right ankle and foot; Translations: [Localized, primary osteoarthritis of the ankle and/or foot] Onset: 01-08-2022 Chronic Other acquired deformities (4 sources) Joint contracture of the ankle and/or foot; Translations: [Contracture, right ankle] Chronic Other aftercare (4 sources) Long-term current use of drug therapy; Translations: [Other oysterman (current) drug therapy] Episodic Other aftercare (4 sources) Long-term current use of antibiotic; Translations: [senior care (current) use of antibiotics] Episodic Other bone [...] Translations: [Dysphagia, unspecified] Onset: 06-06-2017 Episodic Other lower respiratory disease (1 source) Cough; Translations: [Cough] 02-11-2024 Episodic Other non-traumatic joint disorders (9 sources) [...] Episodic Other nutritional; endocrine; and metabolic disorders (5 sources) Obesity; Translations: [Obesity, unspecified] 10-01-2023 Chronic Other nutritional; endocrine; and metabolic disorders (16 sources) Obese class II; Translations: [Body mass index (BMI) 38.0-38.9, adult] Onset: 08-12-2016 Resolved: 01-25-2020 Chronic Other nutritional; endocrine; and metabolic disorders (4 sources) Morbid obesity; Translations: [Morbid (severe) obesity due to excess calories] Chronic Other nutritional; endocrine; and metabolic disorders (1 source) Body mass index 40+ - severely obese; Translations: [Body mass index (BMI) 40.0-44.9, adult] 10-01-2023 Chronic Other nutritional; endocrine; and metabolic disorders (2 sources) Body mass index (BMI) 40.0-44.9, adult; Translations: [Body Mass Index 40.0-44.9, adult] 11-21-2023 Chronic Other nutritional; endocrine; and metabolic disorders (2 sources) Obesity, unspecified; Translations: [Obesity, unspecified] 11-21-2023 Chronic Other nutritional; endocrine; and metabolic disorders (5 sources) Abnormal weight gain; Translations: [Abnormal weight gain] 10-01-2023 Episodic Other nutritional; endocrine; and metabolic disorders (2 sources) Abnormal weight gain; Translations: [Abnormal weight gain] 11-21-2023 Episodic Other screening for suspected conditions (not [...] Sleep disorder; Translations: [Sleep disorder, unspecified] Episodic Residual codes; unclassified (1 source) History of syncope; Translations: [Personal history of other specified conditions] 10-01-2023 Episodic Residual codes; unclassified (1 source) Past history of procedure; Translations: [Other specified postprocedural states] 10-01-2023 Episodic Residual codes; unclassified (2 sources) Other specified postprocedural states; Translations: [Other postprocedural status] 11-21-2023 Episodic Residual codes; unclassified (2 sources) Personal history of other specified conditions; Translations: [Other specified personal history presenting hazards to health] 07-19-2024 Episodic Sprains and strains (5 sources) Strain of muscle(s) and tendon(s) of peroneal muscle group at lower leg level, right leg, subsequent encounter; Translations: [STRAIN M AND T PERONEAL LOW RT LEG SUBS] Onset: 01-08-2022 Episodic Unclassified (1 source) Cough, unspecified; Translations: [Cough, unspecified] Onset: 02-11-2024 Past or Other Problems Problem Classification Problem Date Documented Date Episodic/Chronic Abdominal pain (4 sources) Abdominal pain; Translations: [Abdominal pain, other specified site] Onset: 11-07-2017 Episodic Allergic reactions (4 sources) Inflammatory dermatosis; [...] 07-23-2018 Episodic Other aftercare (1 source) Other oysterman (current) drug therapy; Translations: [OTH DRAPERY INSPECTOR CURRENT DRUG THERAPY] Onset: 01-08-2022 Episodic Other aftercare (1 source) senior care (current) use of anticoagulants; Translations: [HALF-WAY CURRNT USE ANTICOAGULANTS] Onset: 01-08-2022 Episodic Other aftercare (1 source) ocean transportation intermediary (current) use of oral hypoglycemic drugs; Translations: [DRAPERY INSPECTOR USE ORAL HYPOGLYCEMIC DX] Onset: 01-08-2022 Episodic [...] Insomnia; Translations: [Insomnia, unspecified] Onset: 09-14-2018 Episodic Syncope (6 sources) Syncope and collapse; Translations: [Syncope and collapse] Onset: 11-07-2017 Episodic Results Test Name Value Interpretation Reference Range Facility HCG ( test) Ql (U)o n 02-23-2024 Interpretation and review of laboratory results Normal [facility] Preg Test, Ur Negative [facility] IUD Insertionon 02-23-2024 Aron Mcconnell DO 02/23/2024 11:04 AM IUD Insertion Performed by: Aron Mcconnell DO Authorized by: Aron Mcconnell DO Procedure: IUD removal and insertion Reason for removal: patient request Tenaculum applied to cervix: yes Cervix dilated: yes IUD grasped by forceps: yes IUD removed: yes Removed without complications: yes IUD intact: yes Date/Time of Insertion: 02/23/2024 9:53 AM Immediately prior to procedure a time out was called: yes Pelvic exam performed: yes Speculum placed in vagina: yes Cervix cleaned and prepped: yes Tenaculum/Allis/Ring Forceps applied to cervix: yes Anesthesia used: no IUD inserted without complications: yes OSM: 52 mg Mirena IUD (5 years) Patient tolerated procedure well: yes Transvaginal sono confirmed fundal placement: no Intended removal date: 5 years [facility] XR chest 2V*on 02-11-2024 XR chest 2V* [facility] [place] [place] [address] XRay Report Signed Patient: Laina Lara MR#: [id number] : 1975 Acct:[id number] Age/Sex: 48 / F ADM Date: 02/11/24 Loc: XDUCLY Room: Type: [facility] Attending Dr: Cielo Diaz APRN Copies to: Cielo Diaz APRN Ordering Provider: Cielo Diaz APRN Date of Service: 02/11/24 XR/XR chest 2V*: COUGH Plain film chest 2 view HISTORY: Productive cough. Fever COMPARISON: None FINDINGS: SUPPORT DEVICES: None POSTSURGICAL CHANGES: None HEART: Within normal limits PULMONARY MILLIE: Within normal limits MEDIASTINUM: Unremarkable LUNGS AND PLEURA: No acute lung process, pleural effusion or pneumothorax identified. BONY STRUCTURES: Intact ADDITIONAL FINDINGS None XR/XR chest 2V* IMPRESSION: No acute process. Impression dictated by: Adam Burt M.D.02/11/2024 1:57 PM Dictation Location: [place] [address] Transcribed By: [facility] 02/11/24 1357 Dictated By: Adam Burt DO 02/11/24 1357 Signed By: 02/11/24 [address] [facility] IGP,APTIMA HPV,AGE GDLNon AGE GDLN ACOG TESTING Note . [facility] Comment on above: TESTS RESULT FLAG U NITS REF RANGE LAB Clinician Provided Cytology Information Source.............Cervix;Endocervix No. of containers..01 ThinPrep Vial Age Robinson POOLE Vandana... 30 FLAG LEGEND: L-Low Normal,H-High Normal,LL-Alert Low,HH-Alert High <-Panic Low,>-Panic High,A-Abnormal,AA-Critical Abnormal Performed at: 01 =G [address] [address] Daniela Newton MD, HPV APTIMA Negative Negative [facility] Comment on above: This nucleic acid am plification test detects fourteen high- risk HPV types (16,18,31,33,35,39,45,51,52,56,58,59,66,68) without differentiation. Performed at: =G - [facility] [id number] Webbing Tacker: Daniela Newton MD, Phone: [phone] Performed at: - [facility] [id number] Webbing Tacker: Daniela Newton MD, Phone: [phone] IGP, APTIMA HPV, RFX 16/18,45 Note . [facility] Comment on above: TESTS RESULT FLAG UN ITS REF RANGE LAB DIAGNOSIS: 02 NEGATIVE FOR INTRAEPITHELIAL LESION OR MALIGNANCY. CELLULAR CHANGES ASSOCIATED WITH INFLAMMATION ARE PRESENT. THIS SPECIMEN WAS RESCREENED PART OF OUR OPERATIONS INSPECTOR PROGRAM. Specimen adequacy: 02 Satisfactory for evaluation. Endocervical and/or squamous metaplastic cells (endocervical component) are present. Performed by: 02 Evaristo Ervin, Automobile Relocation Engineer ([facility]) QC reviewed by: 02 Juany Hurd, Supervisory Automobile Relocation Engineer ([facility]) . 02 Note: Note 02 The Pap smear is a screening test designed to aid in the detection of premalignant and malignant conditions of the uterine cervix. It is not a diagnostic procedure and should not be used as the sole means of detecting cervical cancer. Both false-positive and false-negative reports do occur. Test Methodology: Note 02 This liquid based ThinPrep(R) pap test was screened with the use of an image guided system. HPV Genotype Reflex Note 02 Criteria not met, HPV Genotype not performed. FLAG LEGEND: L-Low Normal,H-High Normal,LL-Alert Low,HH-Alert High <-Panic Low,>-Panic High,A-Abnormal,AA-Critical Abnormal Performed at: 02 WB [facility] [address] [place] [address] Daniela Newton MD, BRUSH-SPATULA CERVIX [facility]IX [facility] Human papilloma virus 16+18+ 31+33+35+39+45+51+52+56+58+59+66+68 DNA [Presence] in [place] 01-29-2024 HPV 16+18+31+33+35+39+45 +51+52+56+58+59+66+6 8 DNA Probe+sig amp Ql (Cvx) Negative Negative [facility] Comment on above: This nucleic acid am plification test detects fourteen high- risk HPV types (16,18,31,33,35,39,45,51,52,56,58,59,66,68)without differentiation.Performed at: =G - [facility] [address] [place], [place] [id number] Director: Daniela Newton MD, Phone: [phone] at: WB - [facility] [address] [facility], [place] [id number] Director: Daniela Newton MD, Phone: [phone] No Panel Informationon 01-28 HPV High Risk Other Comment Note . [facility] Comment on above: TESTS RESULT FLAG UN ITS REF RANGE LAB DI AGNOSIS: 02 NEGATIVE FOR INTRAEPITHELIAL LESION OR MALIGNANCY. CELLULAR CHANGES ASSOCIATED WITH INFLAMMATION ARE PRESENT. THIS SPECIMEN WAS RESCREENED PART OF OUR OPERATIONS INSPECTOR PROGRAM.Specimen adequacy: 02 Satisfactory for evaluation. Endocervical and/or squamous metaplastic cells (endocervical component) are present.Performed by: 02 Evaristo Ervin, Automobile Relocation Engineer ([facility])QC reviewed by: 02 Juany Hurd, Supervisory Automobile Relocation Engineer ([facility]). 02Note: Note 02 The Pap smear is a screening test designed to aid in the detection of premalignant and malignant conditions of the uterine cervix. It is not a diagnostic procedure and should not be used as the sole means of detecting cervical cancer. Both false-positive and false-negative reports do occur.Test Methodology: Note 02 This liquid based ThinPrep(R) pap test was screened with the use of an image guided system.HPV Genotype Reflex Note 02 Criteria not met, HPV Genotype not performed. ----- FLAG LEGEND: L-Low Normal,H-High Normal,LL-Alert Low,HH-Alert High <-Panic Low,>-Panic High,A-Abnormal,AA-Critical Abnormal ---Performed at:02 WB [facility] [place] [address] [facility] [address] Daniela Newton MD, Reference Lab Test Patient Age Note . [facility] Comment on above: TESTS RESULT FLAG UN ITS REF RANGE LAB Clinician Provided Cytology Information Source.............Cervix;Endocervix No. of containers..01 ThinPrep VialAge Robinson POOLE Vandana... FLAG LEGEND: L-Low Normal,H-High Normal,LL-Alert Low,HH-Alert High <-Panic Low,>-Panic High,A-Abnormal,AA-Critical Abnormal ---Performed at:01 =G [facility] [place] [address] [facility] [address] Daniela Newton MD, [facility] echo transthoracicon [facility] echo transthoracic [facility] Main [place] [place] [address] Echocardiogram Signed Patient: Laina Lara MR#: [id number] : 1975 Acct:[id number] Age/Sex: 47 / F ADM Date: 03/07/23 Loc: Room: Type: [facility] Attending Dr: Shabana Merino MD Ordering Provider: Shabana Merino MD Date of Service: 03/07/2307/25/1036 [facility] echo transthoracic: Syncope, unspecified syncope type Copies [...] Signed By: Shabana Merino MD 03/07/23 1252 Normal [facility] POINT OF CARE GLUCOSEon 12-04 Glucose [Mass/Vol] 136 mg/dL Critically high 74-106 T [facility] Comment on above: Performed By: #### P OCGLUC ####[facility] [address] [place] [address]Dr. Heidy Corona PREG HCG QUALon 12-27-2021 , QUAL Negative Normal NEGATIVE [facility] Comment on above: Performed By: #### P REG ####[facility] [address] [place], [place] [address]Dr. Heidy Cj CBC AUTO DIFFon 12-17-2021 BASO # 0.0 103/ul Normal 0.0-0.1 [facility] Comment on above: Performed By: #### C BC ####[facility] [address] [place], [place] [address]Dr. Heidy Corona Basophils/100 WBC (Bld) 0.3 % Normal 0.2-2.0 [facility] Comment on above: Performed By: #### C BC ####[facility] [address] [place], [place] [address]Dr. Heidy Corona EO # 0.2 103/ul Normal 0.0-0.7 [facility] Comment on above: Performed By: #### C BC ####[facility] [address] [place], [place] [address]Dr. Heidy Corona Eosinophils/100 WBC (Bld) 3.1 % Normal 0.9-7.0 [facility] Comment on above: Performed By: #### C BC ####[facility] [address] [place], [place] [address]Dr. Heidy Corona Erythrocyte distribution width (RBC) [Ratio] 13.1 % Normal 11.0-15.0 [facility] Comment on above: Performed By: #### C BC ####[facility] [address] [place] [address]Dr. Heidy Corona Hematocrit (Bld) [Volume fraction] 41.2 % Normal 36.0-48.0 [facility] Comment on above: Performed By: #### C BC ####[facility] [address] [place] [address]Dr. Heidy Corona Hemoglobin (Bld) [Mass/Vol] 13.6 g/dL Normal 12.0-16.0 [facility] Comment on above: Performed By: #### C BC ####[facility] [address] [place], [place] [address]Dr. Heidy Cj IG # 0.01 10e3/ul Normal 0.00-0.03 [facility] Comment on above: Performed By: #### C BC ####[facility] [address] [place], [place] [address]Dr. Adryramana Corona IG % 0.2 % Normal 0.0-0.5 [facility] Comment on above: Performed By: #### C BC ####[facility] [address] [place], [place] [address]Dr. Adryramana Corona LYMPH # 1.2 103/ul Normal 1.2-3.8 [facility] Comment on above: Performed By: #### C BC ####[facility] [address] [place], [place] [address]Dr. Adryramana Corona Lymphocytes/100 WBC (Bld) 20.1 % Critically low 20.5-60.0 [facility] Comment on above: Performed By: #### C BC ####[facility] [address] [place] [address]Dr. Adryramana Corona MANUAL DIFF REQ NO Normal [facility] Comment on above: Performed By: #### C BC ####[facility] [address] [place], [place] [address]DrTawana Adryramana Corona MCH (RBC) [Entitic mass] 29.4 pg Normal 26.7-34.0 [facility] Comment on above: Performed By: #### C BC ####[facility] [address] [place], [place] [address]Dr. Heidy Cj MCHC (RBC) [Mass/Vol] 33.0 g/dL Normal 29.9-35.2 [facility] Comment on above: Performed By: #### C BC ####[facility] [address] [place] [address]Dr. Heidy Corona MCV (RBC) [Entitic vol] 89.2 fL Normal 81.0-99.0 [facility] Comment on above: Performed By: #### C BC ####[facility] [address] [place] [address]Dr. Heidy Corona MONO # 0.4 103/ul Normal 0.3-0.8 [facility] Comment on above: Performed By: #### C BC ####[facility] [address] [place], [place] [address]Dr. Heidy Corona Monocytes/100 WBC (Bld) 6.2 % Normal 1.7-12.0 [facility] Comment on above: Performed By: #### C BC ####[facility] [address] [place], [place] [address]Dr. Heidy Corona NEUT # 4.1 103/ul Normal 1.4-6.5 [facility] Comment on above: Performed By: #### C BC ####[facility] [address] [place], [place] [address]Dr. Heidy Corona Neutrophils/100 WBC (Bld) 70.1 % Normal 43.0-75.0 [facility] Comment on above: Performed By: #### C BC ####[facility] [address] [place], [place] [address]Dr. Heidy Corona Platelet mean volume (Bld) [Entitic vol] 11.5 fL Normal 9.5-13.5 [facility] Comment on above: Performed By: #### C BC ####[facility] [address] [place], [place] [address]Dr. Heidy Corona PLT 209 103/ul Normal 150-450 [facility] Comment on above: Performed By: #### C BC ####[facility] [address] [place], [place] [address]Dr. Heidy Corona RBC 4.62 106/ul Normal 4.20-5.40 [facility] Comment on above: Performed By: #### C BC ####[facility] [address] [place] [address]Dr. Heidy Corona WBC 5.8 103/ul Normal 4.0-11.0 [facility] Comment on above: Performed By: #### C BC ####[facility] [address] [place] [address]Dr. Heidy Corona PROF CHEM 8 (BAS METB)on Anion gap [Moles/Vol] 11.6 mmol/L Normal [facility] Comment on above: Performed By: #### B MP #### [facility] [address] [place] [address] Dr. Heidy Corona Calcium [Mass/Vol] 8.4 mg/dL Critically low 8.5-10.1 [facility] Comment on above: Performed By: #### B MP #### [facility] [address] [place] [address] Dr. Heidy Corona Chloride [Moles/Vol] 102 mmol/L Normal 98-107 [facility] Comment on above: Performed By: #### B MP #### [facility] [address] [place] [address] Dr. Heidy Corona CO2 [Moles/Vol] 28.2 mmol/L Normal 21.0-32.0 The [facility] Comment on above: Performed By: #### B MP #### [facility] [address] [place] [address] Dr. Heidy Corona Creatinine [Mass/Vol] 0.68 mg/dL Normal 0.55-1.02 [facility] Comment on above: Performed By: #### B MP #### [facility] [address] [place] [address] Dr. Heidy Corona EGFR-AF TAJIK >60 Normal >=60 [facility] Comment on above: Performed By: #### B MP #### [facility] [address] [place] [address] Dr. Heidy Corona EGFR-NON AF TAJIK >60 Normal >=60 [facility] Comment on above: Performed By: #### B MP #### [facility] [address] [address] [address] Heidy Corona Glucose [Mass/Vol] 90 mg/dL Normal 74-106 The [facility] Comment on above: Performed By: #### B MP #### [facility] [address] [address] [address] Heidy Corona Potassium [Moles/Vol] 3.8 mmol/L Normal 3.5-5.1 [facility] Comment on above: Performed By: #### B MP #### [facility] [address] [address] [address] Heidy Corona Sodium [Moles/Vol] 138 mmol/L Normal 136-145 [facility] Comment on above: Performed By: #### B MP #### [facility] [address] [address] [address] Heidy Corona Urea nitrogen [Mass/Vol] 10.0 mg/dL Normal 7.0-18.0 [facility] Comment on above: Performed By: #### B MP #### [facility] [address] [address] [address] Heidy Corona Urea nitrogen/Creatinine [Mass ratio] 14.7 mg/mg Normal [facility] Comment on above: Performed By: #### B MP #### [facility] [address] [address] [address] Heidy Corona PROTIMEon 12-17-2021 INR Coag (PPP) [Relative time] 1.07 {INR} Normal [facility] Comment on above: Performed By: #### P T, PTT ####[facility] [address] [address]Dr. Heidy Corona INR GUIDELINES SEE BELOW Normal The [facility] Comment on above: Result Comment: KHURRAM RED INR: 2.0 - 3.0 CONDITIONS NOT LISTED BELOW 2.5 - 3.5 FOR PROSTHETIC HEART VALVE REPLACEMENT 2.5 - 3.5 RECURRENT THROMBOSIS Performed By: #### P T, PTT ####[facility] [address] [place], [place] [address]TiTawana Corona PT Coag (PPP) [Time] 11.5 s Normal 9.0-11.6 [facility] Comment on above: Performed By: #### P T, PTT ####[facility] [address] [place], [place] [address]JvDr. Heidy Corona PTTon 12-17-2021 aPTT Coag (Bld) [Time] 29.9 s Normal 22.3-36.2 [facility] Comment on above: Performed By: #### P T, PTT #### [facility] [address] ANKLE RT WO [...] by: MICK KOEHLER Date: 2021-10-23 16:36 Normal [facility] Vital Signs Date Time Vital Sign Value Performing Clinician Facility 02-23-2024 10:00-0400 Body mass index (BMI) [Ratio] 38.45 kg/m2 [facility] [employer] Work Phone: [facility] 02-23-2024 10:00-0400 Body weight 101.61 kg [employer] Work Phone: [facility] 02-23-2024 10:00-0400 Diastolic blood pressure 70 mm[Hg] Aron Enedina DO Work Phone: [facility] 02-23-2024 10:00-0400 Systolic blood pressure 112 mm[Hg] Aron Enedina DO Work Phone: [facility] 02-11-2024 13:01-0400 Body height 165.1 cm MD Maricruz Joya Work Phone: [facility] 02-11-2024 13:01-0400 Body mass index (BMI) [Ratio] 36.6 kg/m2 MD Maricruz Joya Work Phone: [facility] 02-11-2024 13:01-0400 Body temperature 98.6 [degF] MD Maricruz Joya Work Phone: [facility] 02-11-2024 13:01-0400 Body weight 99.79 kg MD Maricruz Joya Work Phone: [facility] 02-11-2024 13:01-0400 Diastolic blood pressure 78 mm[Hg] MD Maricruz Joya Work Phone: [facility] 02-11-2024 13:01-0400 Heart rate 100 /min MD Maricruz Joya Work Phone: [facility] 02-11-2024 13:01-0400 Respiratory rate 18 /min MD Maricruz Joya Work Phone: [facility] 02-11-2024 13:01-0400 SaO2% (BldA) [Mass fraction] 95 % MD Maricruz Joya Work Phone: [facility] 02-11-2024 13:01-0400 Systolic blood pressure 117 mm[Hg] MD Maricruz Joya Work Phone: [facility] 12-22-2023 08:47-0400 Body height 163.83 cm MD Maricruz Joya Work Phone: [facility] 12-22-2023 08:47-0400 Body mass index (BMI) [Ratio] 39.9 kg/m2 MD Maricruz Joya Work Phone: [facility] 12-22-2023 08:47-0400 Body weight 107.1 kg MD Maricruz Joya Work Phone: [facility] 12-22-2023 08:47-0400 Diastolic blood pressure 74 mm[Hg] MD Maricruz Joya Work Phone: [facility] 12-22-2023 08:47-0400 Heart rate 61 /min MD Maricruz Joya Work Phone: [facility] 12-22-2023 08:47-0400 Respiratory rate 18 /min MD Maricruz Joya Work Phone: [facility] 12-22-2023 08:47-0400 SaO2% (BldA) [Mass fraction] 96 % MD Maricruz Joya Work Phone: [facility] 12-22-2023 08:47-0400 Systolic blood pressure 109 mm[Hg] MD Maricruz Joya Work Phone: [facility] 11-21-2023 09:38-0400 Body height 163.83 cm MD Maricruz Joya Work Phone: [facility] 11-21-2023 09:38-0400 Body mass index (BMI) [Ratio] 39.2 kg/m2 MD Maricruz Joya Work Phone: [facility] 11-21-2023 09:38-0400 Body weight 105.26 kg MD Maricruz Joya Work Phone: [facility] 11-21-2023 09:38-0400 Diastolic blood pressure 78 mm[Hg] MD Maricruz Joya Work Phone: [facility] 11-21-2023 09:38-0400 Heart rate 67 /min MD Maricruz Joya Work Phone: [facility] 11-21-2023 09:38-0400 Respiratory rate 18 /min MD Maricruz Joya Work Phone: [facility] 11-21-2023 09:38-0400 SaO2% (BldA) [Mass fraction] 97 % MD Maricruz Joya Work Phone: [facility] 11-21-2023 09:38-0400 Systolic blood pressure 119 mm[Hg] MD Maricruz Joya Work Phone: [facility] 02-10-2023 13:40-0400 Body height 165.1 cm Shabana Ledesmage Other [employer] Other 02-10-2023 13:40-0400 Body mass index (BMI) [Ratio] 39.83 kg/m2 Shabana Clarosoroge Other [employer] Other 02-10-2023 13:40-0400 Body weight 108.59 kg Shabana Clarosoroge Other [employer] Other 02-10-2023 13:40-0400 Diastolic blood pressure 84 mm[Hg] Shabana Wilber Other [employer] Other 02-10-2023 13:40-0400 SaO2% (BldA) [Mass fraction] 96 % Shabana Wilber Other [employer] Other 02-10-2023 13:40-0400 Systolic blood pressure 122 mm[Hg] Shabana Wilber Other [employer] Other Encounters Encounter Date Encounter Type Care Provider Facility Start: 02-23-2024 End: 02-23-2024 ambulatory ARON MCCONNELL Not Available Start: 02-23-2024 End: 02-23-2024 Patient encounter procedure Aron Mcconnell DO Work Phone: [facility] Comment on above: Encounter for IUD re moval; Encounter for IUD insertion Start: 02-11-2024 End: 02-11-2024 ambulatory MD Maricruz Joya Work Phone: [facility] Work Phone: Start: 02-11-2024 End: 02-11-2024 Patient encounter procedure MD Maricruz Joya Work Phone: [facility] Work Phone: Start: 01-29-2024 End: 02-06-2024 Clinisync Result Encounter Aron Enedina DO Work Phone: [facility] Unsolicited Start: 01-29-2024 End: 02-06-2024 Clinisync Result Encounter Aron Enedina DO Work Phone: [facility] Unsolicited Start: 01-29-2024 Non-patient / Non-visit MD Fabiola Joya Work Phone: [facility] Work Phone: Start: 01-29-2024 End: 01-29-2024 ambulatory ARON ENEDINA Not Available Start: 12-22-2023 End: 12-22-2023 Patient encounter procedure MD Maricruz Joya Work Phone: [facility] Work Phone: Start: 11-21-2023 End: 11-21-2023 Patient encounter procedure MD Maricruz Joya Work Phone: [facility] Work Phone: Start: 03-07-2023 End: 03-07-2023 Patient encounter procedure MD Maricruz Joya Work Phone: [facility] Work Phone: Start: 03-07-2023 End: 03-07-2023 ambulatory MD Maricruz Joya Work Phone: [facility] Work Phone: Start: 03-03-2023 End: 03-03-2023 ambulatory Shabana Wilber Other [employer] Other Start: 03-03-2023 Telephone encounter Shabana Wilber [facility] Start: 02-11-2023 End: 02-11-2023 ambulatory Shabana Wilber Other [employer] Other Start: 02-11-2023 Telephone encounter Shabana Wilber [facility] [employer] Start: 02-10-2023 End: 02-10-2023 ambulatory Shabana Merino Other [employer] Other Start: 02-10-2023 Office outpatient ne w 30 minutes Shabana Merino [facility] Start: 01-30-2023 End: 01-30-2023 ambulatory Maricruz Joya Other [employer] Other Start: 01-30-2023 Telephone encounter Maricruz Joya [facility] Start: 09-18-2022 ambulatory EARNEST PORTER Faci lity:H1 Start: 06-26-2022 End: 06-27-2022 ambulatory EARNEST PORTER Facility:H1 Start: 05-05-2022 End: 06-15-2022 ambulatory DENISHA VICTOR MANUEL Facility:H1 Start: 05-01-2022 Gynecological examin ation normal Maricruz Joya Other [employer] Other Start: 03-20-2022 End: 03-21-2022 ambulatory EARNEST WANANDER Facility:H1 Start: 02-13-2022 End: 05-04-2022 ambulatory DENISHA VICTOR MANUEL Facility:H1 Start: 02-07-2022 End: 02-08-2022 ambulatory DENISHA VICTOR MANUEL Facility:H1 Start: 01-17-2022 End: 01-18-2022 ambulatory DENISHA VICTOR MANUEL Facility:H1 Start: 12-27-2021 End: 12-27-2021 ambulatory EARNEST PORTER Facility:H1 Start: 12-24-2021 ambulatory EARNEST PORTER Faci lity:H1 Start: 12-18-2021 Encounter for preprocedural cardiovascular examination PETER D [facility] Start: 12-18-2021 Encounter for preprocedural laboratory examination EARNEST Myrick [facility] Start: 12-17-2021 End: 12-18-[address] MARICRUZ JOYA Facility:H1 Start: 12-17-2021 End: 12-18-2021 Encounter for preprocedural cardiovascular examination DR MARICRUZ JOYA Facility:H1 Start: 10-23-2021 End: 10-24-2021 ambulatory DENISHA RUSH Facility:H1 Start: 10-18-2021 End: 10-19-2021 [facility] Start: 09-06-2021 End: 09-07-2021 ambulatory [facility] Facility: Procedures Date Procedure Procedure Detail Performing Clinician Start: 02-23-2024 Urine test visual color cmprsn meths Aron Enedina DO Work Phone: Start: 02-23-2024 IUD INSERTION Aron Chato io DO Work Phone: Start: 02-11-2024 Plain chest X-ray MD Donavan Joya Work Phone: Start: 01-29-2024 IGP,APTIMA HPV,AGE GDLN Aron Enedina DO Work Phone: End: 01-25-2020 Depression screening Maricruz Joya Other Insertion of intraut erine contraceptive device Maricruz Joya Other Mammography Maricruz Joya Other End: 10-12-2018 Screening for malignant neoplasm of breast Maricruz Joya Other Screening for malign ant neoplasm of breast Maricruz Joya Other Plan of Treatment Date Care Activity Detail Author Start: 02-01-2025 End: 02-01-2025 Patient encounter procedure 02/01/2025 9:00 AM EDT Office Visit [facility] [address] [place] [id number] Aron Mcconnell, DO [address] [place] [address] [facility] Start: 03-22-2024 End: 03-22-2024 Patient encounter procedure 03/22/2024 11:30 AM EST Office Visit [facility] [address] [id number] Annabelle Vickers PA [address] [place], [place] [id number] [facility] Start: 02-23-2024 End: 02-22-2025 IUD Removal IUD Removal Procedures Routine Encounter for IUD removal Expected: 02/23/2024 (Approximate), Expires: 02/22/2025 [facility] Work Phone: Comment on above: Expected: 02/23/2024 (Approximate), Expires: 02/22/2025 Start: 02-23-2024 End: 02-23-2024 Patient encounter procedure 02/23/2024 9:30 AM EDT Procedure Visit [facility] [address] [id number] Aron Mcconnell DO [address] [place], [place] [id number] [facility] XR Chest 2 [facility] Payers Date Payer Category Payer Self-pay 2022 Private Health Insurance [id number] 1976 Unknown [id number] 1976 Unknown [id number] [id number] 1976 Unknown [id number] [id number] 1976 Unknown [id number] [id number] 1976 Unknown [id number] [id number] 1976 Unknown [id number] 2.16.840.1.123485.3.579.2.593 1976 Unknown [id number] [id number] 1976 Unknown [id number] [id number] 1976 Unknown [id number] 2.16.840.1.597655.3.579.2.593 1976 Unknown [id number] 2.16.840.1.542283.3.579.2.593 1976 Unknown [id number] 2.16.840.1.956593.3.579.2.593 1976 Unknown [id number] 2.16.840.1.699927.3.579.2.593 1976 Unknown [id number] 2.16.840.1.450358.3.579.2.593 1976 Unknown [id number] 2.16.840.1.750185.3.579.2.1259 1976 Unknown [id number] [id number] 1959 Private Health Insurance [id number] Private Health Insurance [facility] [id number] Unknown [id number] Unknown [id number] [id number] Social History Date Type Detail Facility Unknown if ever smoked [employer] Other Sex Assigned At [employer] Other Start: 1975 Sex Assigned At Female F [facility] Tobacco smoking status NJIS Tobacco smoking consumption unknown [facility] Start: 1975 Sex assigned at Not on file N [facility] Start: 10-01-2023 Tobacco smoking status NHIS Never smoked tobacco (finding) [facility] Clinical Notes 09-07-2021 to 02-23-2024 Aron EnedinaDO sha - 02/23/2024 9:30 AM EDT Note Date & Type Note Facility 02-23-2024 History of Presen t illness Narrative Associated Order(s): IUD Insertion Post-Procedure Diagnose(s): Encounter for IUD insertion Reason for Appointment: Patient ID: Laina Lara is a 48 y.o. female who presents for Contraception (Pt present today for Mirena removal/insert) Patient presents today for a IUD Insertion and IUD Removal appointment. MEDICATIONS Current Outpatient Medications Medication Instructions ibuprofen 200 mg, Oral, Every 8 hours PRN semaglutide (OZEMPIC) 1 mg, Subcutaneous, Weekly ALLERGIES No Known Allergies SURGICAL HISTORY History reviewed. No pertinent surgical history. REVIEW OF SYSTEMS Review of Systems: Review of Systems All other systems reviewed and are negative. OBJECTIVE Objective: Physical Exam Constitutional: Appearance: Normal appearance. She is well-developed. Genitourinary: Vulva normal. Cardiovascular: Rate and Rhythm: Normal rate and regular rhythm. Pulmonary: Effort: Pulmonary effort is normal. Breath sounds: Normal breath sounds. Abdominal: General: Bowel sounds are normal. There is no distension. Palpations: Abdomen is soft. Tenderness: There is no abdominal tenderness. There is no guarding or rebound. Musculoskeletal: General: No swelling. Normal range of motion. Right lower leg: No edema. Left lower leg: No edema. Neurological: Mental Status: She is alert and oriented to person, place, and time. Skin: General: Skin is warm and dry. Psychiatric: Mood and Affect: Mood normal. Behavior: Behavior normal. Vitals and nursing note reviewed. Exam conducted with a reading assistant present. Vitals: Estimated body mass index is 38.59 kg/m as calculated from the following: Height as of 08/26/17: 5' 4 . Weight as of 01/29/24: 224 lb 12.8 oz. BP: No LMP recorded. Patient has had an implant. ASSESSMENT & PLAN Assessment/Plan Encounter Diagnosis: ICD-10-CM 1. Encounter for IUD removal Z30.432 IUD Removal 2. Encounter for IUD insertion Z30.430 Levonorgestrel intrauterine device 52 mg POCT , urine manually resulted IUD Insertion Performed by: Aron Mcconnell DO Authorized by: Aron Mcconnell DO Procedure: IUD removal and insertion Reason for removal: patient request Tenaculum applied to cervix: yes Cervix dilated: yes IUD grasped by forceps: yes IUD removed: yes Removed without complications: yes IUD intact: yes Date/Time of Insertion: 02/23/2024 9:53 AM Immediately prior to procedure a time out was called: yes Pelvic exam performed: yes Speculum placed in vagina: yes Cervix cleaned and prepped: yes Tenaculum/Allis/Ring Forceps applied to cervix: yes Anesthesia used: no IUD inserted without complications: yes OSM: 52 mg Mirena IUD (5 years) Patient tolerated procedure well: yes Transvaginal sono confirmed fundal placement: no Intended removal date: 5 years IUD Removal/Insertion: Patient presents today for an IUD Removal/Insertion. Patient is having an unknown IUD removed and a Mirena placed, written consent was obtained and patient was placed in dorsal lithotomy position with feet in stirrups. A sterile speculum was inserted into the vagina and cervix was visualized. The IUD strings were grasped gently with forceps and the IUD was removed in its entirety without difficulty. The IUD was shown to the patient then properly discarded. Cervix was cleansed with betadine and the anterior lip was grasped with ring forceps. Uterus was then gently sounded, New IUD was advanced through the endocervix, toward the uterine fundus. The was then deployed as device was gently removed from the uterus. The IUD strings were cut to length from external os. All instruments were removed from the vagina. Post-procedure instructions given. All of patients questions were answered and she expressed understanding. Advised patient to call in interim with any questions or concerns. Follow Up: Patient is to return to the office in 4 weeks for a string check. Documented by Andra Haynes LPN on behalf of: Aron Mcconnell DO documented in this encounter [facility] 02-10-2023 Evaluation note Encounter Date Diagnosis Assessment [...] of compression stockings.-Foll ow-up in a month [employer] Other [id number] NotePROCEDURE: XR ANKLE RT MIN 3 VIEWS [...] Electronically authenticated by: SEVEN GARCIA Date: 2022-06-26 17:04[facility]11-17-2022 NotePROCEDURE: XR ANKLE RT MIN 3 VIEWS [...] change in alignment. 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 Anatomic alignment. Moderate plantar enthesopathic spurring of the calcaneus SOFT TISSUES:Moderate diffuse soft tissue swelling. Interval removal of surgical skin margarita. EFFUSION:None visible. OTHER: Negative. IMPRESSION: Stable ankle replacement Electronically authenticated by: MICK KOEHLER Date: 2022-02-07 17:43[facility]09-15-2022 NotePROCEDURE: XR ANKLE RT MIN 3 VIEWS [...] Electronically authenticated by: MICK KOEHLER Date: 2022-01-17 11:18[facility]08-26-2022 NotePROCEDURE: XR ANKLE RT 2V HISTORY: Pain COMPARISON: XR ankle right 10/18/2021 FINDINGS: BONES:Multiple intraoperative spot fluoroscopic images were obtained during replacement of the articular surface polycomponent of the tibial plafond prosthesis. IMPRESSION: 1. Intraoperative surgical revision/repair. Electronically authenticated by: SEVNE GARCIA Date: 2021-12-28 09:56[facility]08-26-2022 NotePROCEDURE: XR ANKLE RT MIN 3 VIEWS [...] Electronically authenticated by: SEVEN GARCIA Date: 2021-12-28 07:54[facility]08-01-2022 History general Narrative - Reported* Type Description Date Medical History eosinophilic esophagitis Medical History GERD Surgical History C section Surgical History Foot Surgery-RIGHT 12/2021 Surgical History Rt. 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/2020 [employer] Other 06-16-2022 NotePROCEDURE: XR ANKLE RT MIN [...] Electronically authenticated by: SEVEN GARCIA Date: 2021-10-18 16:47[facility]05-06-2022 NotePROCEDURE: XR ANKLE RT MIN 3 VIEWS [...] Electronically authenticated by: MICK KOEHLER Date: 2021-09-07 07:14[facility] note[facility] InformationNort Sazze Other Evaluation noteNo assessment information available [facility] Work Phone: Evaluation note* Diagnosis Onset Date Resolution Status Abnormal weight gain acute BMI 40.0-44.9, adult acute History of esophageal dilatation acute Hx of syncope acute Obesity acute Vitamin deficiency acute Abnormal weight gain acute BMI 40.0-44.9, adult acute History of esophageal dilatation acute Hx of syncope acute Obesity acute Vitamin deficiency acute Acute bronchitis acute [facility] Work Phone: Evaluation note* Diagnosis Encounter for IUD removal Encounter for IUD insertion Insertion of intrauterine contraceptive device documented in this encounter [facility] Summary Purpose Family History No Family History Records Found Relationship Condition Age at Onset Recorded Date/T roddy mother Chronic obstructive pulmonary disease Unk nown Advance Directives No Advanced Directives Records Found Advance Directive Response Recorded Date/ Time Advance Directives No March 03, 2023 11:19am Chief Complaint and Reason for Visit Chief Complaint R55 Chief Complaint WMN f/u WMN f/u Chest congestion, cough Reason for Visit Abnormal weight gain BMI 40.0-44.9, adult History of esophageal dilatation Hx of syncope Obesity Vitamin deficiency Abnormal weight gain BMI 40.0-44.9, adult History of esophageal dilatation Hx of syncope Obesity Vitamin deficiency Acute bronchitis Additional Source Comments INFORMATION SOURCE (unrecogn ized section and content) DATE CREATED AUTHOR 09/02/2022 [facility] DATE CREATED AUTHOR AUTHOR'S ORGANIZ ATION 02/22/2024 [facility] DATE CREATED AUTHOR AUTHOR'S ORGANIZ ATION 02/24/2024 [facility] EPIC REASON FOR VISIT (unrecogniz ed section and content) Reason Comments Contraception Pt present today for Mirena removal/insert Care Teams (unrecognized sec tion and content) Team Status: Active Member Role Status Dates Maricruz Joya MD Primary Care Provider Active Team Status: Inactive Member Role Status Dates Shabana Merino MD Attending Provider Active Maricruz Joya MD Primary Care Provider Active Hand Spring Repairer Relationship Specialty Start Date End Date Maricruz Joya MD [address] [place] [address] [phone] PCP - General 01/22/24 Team Status: Active Member Role Status Dates Shabana Merino MD Materials Handler Active Maricruz Joya MD Primary Care Provider Active Team Status: Inactive Member Role Status Dates Maricruz Joya MD Primary Care Provider Active Start: November 21, 2023 End: November 21, 2023 Juany Beasley APRN Attending Provider Active Start: November 21, 2023 End: November 21, 2023 Team Status: Inactive Member Role Status Dates Maricruz Joya MD Primary Care Provider Active Start: December 22, 2023 End: December 22, 2023 Juany Beasley APRN Attending Provider Active Start: December 22, 2023 End: December 22, 2023 Team Status: Active Member Role Status Biju Joya MD Primary Care Provider Active Start: January 29, 2024 Aron Mcconnell DO Attending Provider Active Start : January 29, 2024 Team Status: Inactive Member Role Status Dates Maricruz Joya MD Primary Care Provider Active Start: February 11, 2024 End: February 11, 2024 Cielo Diaz APRN Attending Provider Active S tart: February 11, 2024 End: February 11, 2024 Hand Spring Repairer Relationship Specialty Start Date End Date Maricruz Joya MD [address] [place] [address] PCP - General 01/22/24 Goals (unrecognized section and content) Goals may [...] BE BASED ON THE PRIMARY CLINICAL RECORDS. [facility]. provides no warranty or guarantee of the accuracy or completeness of information in this document.
== END 2024-02-26 09:59 | disposition home or self-care (01) ==
LOC: MAMMO 09:58
PROVIDERS: PCP Family Medicine; Visit Provider Obstetrics & Gynecology
DX: Z12.31 Encounter for screening mammogram for malignant neoplasm of breast (principal)
CPT/HCPCS: 77063; 77067

== ENCOUNTER 2024-07-23 11:17 | Outpatient (OUT) | payer OTHER, SELFPAY ==
[2024-07-23 11:37] LABS: Hemoglobin 14.2 g/dL (12.0-16.0); Mean Corpuscular HGB Conc 34.6 g/dL (29.9-35.2); Mean Corpuscular Hemoglobin 30.1 pg (26.7-34.0); Mean Corpuscular Volume 86.9 fL (81.0-99.0); Mean Platelet Volume 11.4 fL (9.5-13.5); Platelet Count 224 10^3/uL (150-450); Red Blood Count 4.72 10^6/uL (4.20-5.40); Red Cell Distribution Width 12.6 % (11.0-15.0); White Blood Count 5.1 10^3/uL (4.0-11.0)
[2024-07-23 11:59] LABS: Alanine Aminotransferase 18 U/L (14-59); Albumin Level 3.6 g/dL (3.4-5.0); Alkaline Phosphatase 56 U/L (46-116); Anion Gap 11.7; Aspartate Amino Transferase 7 U/L (15-37); BUN Creatinine Ratio 12.7; Bilirubin Total 0.7 mg/dL (0.2-1.0); Calcium 8.8 mg/dL (8.5-10.1); Carbon Dioxide 26.4 mmol/L (21.0-32.0); Chloride 102 mmol/L (98-107); Chol HDL Ratio 2.8; Cholesterol 149 mg/dL (<=200); Estimated GFR (African America >60 (>=60 mL/min/1.73m^2); Estimated GFR (Non-African Ame >60 (>=60 mL/min/1.73m^2); Globulin 3.6 g/dL; Glucose 89 mg/dL (74-106); HDL Cholesterol 54 mg/dL (40-60); LDL Cholesterol Calculated 86.6 mg/dL; Potassium 4.1 mmol/L (3.5-5.1); Sodium 136 mmol/L (136-145); Total Protein 7.2 g/dL (6.4-8.2); Triglycerides 42 mg/dL (<=150); VLDL CHOLESTEROL 8.4 mg/dL
[2024-07-24 04:07] LABS: Vitamin B12 318 pg/mL (232-1245)
== END 2024-07-23 11:18 | disposition home or self-care (01) ==
LOC: LAB 11:19
PROVIDERS: PCP Family Medicine; Visit Provider Nurse Practitioner Family
DX: E56.9 Vitamin deficiency, unspecified (principal); Z68.36 Body mass index [BMI] 36.0-36.9, adult; R63.5 Abnormal weight gain; Z98.890 Other specified postprocedural states
CPT/HCPCS: 36415; 80053; 80061; 82306; 82607; 85027

== ENCOUNTER 2025-02-14 21:07 | Outpatient (REF) | payer OTHER, SELFPAY ==
--- OUTSIDE RECORDS SUMMARY | 2024-09-08 05:00 | XMS_ITS ---
Author Organization [facility] in [place] Address [address] [place] [address] Care Team Providers Care Ciaio Counter Molder Name Role Phone Maricruz Maynard Primary Care Provider Noe Avila [phone] REASON FOR VISIT 1 year f/u Encounters Encounter Location Date Provider Diagnosis [facility] (PODIATRY) [address] [place] [address] [place] [address] 09/08/2024 Noe Teixeira Plan Of Treatment No Information Progress Notes * Laina BARROSODOB:1975 ( 49 yo F)Acc No.[id number]:09/08/2024 UNLOCKED PROGRESS NOTE Follow Up Patient: Laina EASON Provider: Dann Teixeira DPM, MS :1975 A ge:48 Y S ex:Female Date:09/08/2024 Address:[place], [id number] Pcp:Maricruz Maynard Subjective: * Chief Complaints: * 1 . 1 year f/u. * Medical History: Objective: * Vitals: Assessment: Plan: * Treatment: * * Electronic signature of Kojo Teixeira DPM on 02/14/2025 at 12:51 PM EDT Sign off status: Pending Visit Status: O FF CANC (OFFICE CANCEL) * Provider: Dann Teixeira DPM, MS Date: 0 09/08/2024 Generated for Printi ng/Faxing/eTransmitting on: 1 12:51 PM EDT
--- OUTSIDE RECORDS SUMMARY | 2025-02-14 13:00 | XMS_ITS | Encounter Summary ---
Author Organization [facility] Address [address] [facility] [place] [address] Care Team Providers Care Audit Spec Name Role Phone Maricruz Maynard MD Primary Care Provider [phone] Reason for Visit * Reason Comments Well Women Visit Encounter Details Date Type Department Care Team (Late st Contact Info) Description 02/14/2025 1:00 PM EDT Office Visit [facility] [address] [place] [address] Refugio Mcconnell DO [address] [facility] [address] [facility] [address] Sridevi Avila [place], [facility]11 Well woman exam with routine gynecological exam; Encounter for screening mammogram for malignant neoplasm of breast Social History Tobacco Use Types Packs/Day Years Used Date Smoking Tobacco: Never Assessed Comments No Sex and Gender Information Value Date Recorded Sex Assigned at Not on file Legal Sex Female 7:24 PM EDT Gender Identity Not on file Sexual Orientation Not on file documented as of this encounter Last Filed Vital Signs Vital Sign Reading Time Taken Comments Blood Pressure 120/82 02/14/2025 1:01 PM EDT Pulse - - Temperature - - Respiratory Rate - - Oxygen Saturation - - Inhaled Oxygen Concentration - - Weight 90.9 kg (200 lb 8 oz) 02/14/2025 1:01 PM EDT Height - - Body Mass Index 34.42 08/26/2017 12:00 PM EDT documented in this encounter Progress Notes * Mickie Smith NP - 02/14/2025 1:00 PM EDT Reason for Appointment: Patient ID: Laina Lara is a 49 y.o. female who presents for Well Women Visit Patient presents today for Annual Exam. MEDICATIONS Current Outpatient Medications Medication Instructions buPROPion XL (WELLBUTRIN XL) 300 mg, Every morning ibuprofen 200 mg, Oral, Every 8 hours PRN phentermine (Adipex-P) 37.5 MG tablet TAKE 1 TABLET BY MOUTH 30 MINS BEFORE OR 1-2 HOURS AFTER BREAKFAST ALLERGIES Allergies[1] PROBLEMS Active Ambulatory Problems Diagnosis Date Noted Encounter for IUD removal 02/23/2024 Resolved Ambulatory Problems Diagnosis Date Noted No Resolved Ambulatory Problems No Additional Past Medical History HISTORY PAST MEDICAL HISTORY SOCIAL HISTORY Medical History[2] Social History Tobacco Use Smoking status: Not on file Smokeless tobacco: Not on file Substance Use Topics Alcohol use: Not on file Drug use: Not on file FAMILY HISTORY Family History[3] SURGICAL HISTORY Surgical History[4] REVIEW OF SYSTEMS Review of Systems: Review of Systems Constitutional: Negative. HENT: Negative. Eyes: Negative. Respiratory: Negative. Cardiovascular: Negative. Gastrointestinal: Negative. Genitourinary: Negative. Musculoskeletal: Negative. Skin: Negative. Neurological: Negative. All other systems reviewed and are negative. Hematological: Negative. Endocrine: Negative. Allergic/Immunologic: Negative. OBJECTIVE Objective: Physical Exam Constitutional: Appearance: Normal appearance. She is well-developed. Genitourinary: Vulva normal. Breasts: Breasts are soft. Right: Normal. Left: Normal. Cardiovascular: Rate and Rhythm: Normal rate and [...] nursing note reviewed. Exam conducted with a orthopedic mechanic present. Vitals: Estimated body mass index is 34.42 kg/m?? as calculated from the following: Height as of 18: 5' 4 . Weight as of this encounter: 200 lb 8 oz. BP: 120/82 No LMP recorded (lmp unknown). (Menstrual status: IUD). ASSESSMENT & PLAN ICD-10-CM 1. Well woman exam with routine gynecological exam Z01.419 THIN PREP TIS PAP AND HR HPV DNA 2. Encounter for screening mammogram for malignant neoplasm of breast Z12.31 Bilateral screening mammogram Bilateral screening mammogram Annual Exam: Patient presents today for an annual exam. Patient states she is doing well and has no complaints. Pap was obtained without difficulty. Orders Placed This Encounter Procedures Bilateral screening mammogram Follow Up: Patient is to return in one year for annual unless needed otherwise. Documented by Mickie Smith NP on behalf of: Refugio Mcconnell DO [1] No Known Allergies [2] No past medical history on file. [3] No family history on file. [4] No past surgical history on file. documented in this encounter Plan of Treatment Upcoming Encounters Date Type Department Care Team ([facility] st Contact Info) Description 02/20/2026 2:00 PM EDT Procedure Visit [facility] [address] [facility] [address] Refugio Mcconnell DO [address] [facility] [address] [place], [place] [id number] Scheduled Orders Name Type Priority Associated Diagnoses Orde r Schedule Bilateral screening mammogram Imaging Routine Encounter for screening mammogram for malignant neoplasm of breast Expected: 02/14/2025 (Approximate), Expires: 04/16/2026 THIN PREP TIS PAP AND HR HPV DNA Pathology and Cytology Routine Well woman exam with routine gynecological exam Ordered: 02/14/2025 documented as of this encounter Visit Diagnoses Diagnosis Well woman exam with routine gynecological exam Routine gynecological examination Encounter for screening mammogram for malignant neoplasm of breast documented in this encounter Care Teams Audit Spec Relationship Specialty Start Date End Date Maricruz Maynard MD [address] [facility] [place] [address] PCP - General 01/22/24 documented as of this encounter
--- OUTSIDE RECORDS SUMMARY | 2025-02-14 21:09 | XMS_ITS | CCD ---
Author Organization [facility] Care Team Providers Care Break Out Worker Name Role Phone DENISHA RUSH Admitting Unavailable WEST, DR MICK Rodas Consulting Unavailable JOYA, DR MARICRUZ Hammonds Primary Care Unavailable DENISHA RUSH Attending Unavailable VICTOR MANUEL, DENISHA Consulting Unavailable VICTOR MANUEL, DENISHA Admitting Unavailable ZIEBER, DR SEVEN Gallegos Consulting Unavailable JOYA, DR MARICRUZ Hammonds Primary Care Unavailable VICTOR MANUEL, DENISHA Attending Unavailable VICTOR MANUEL, DENISHA Consulting Unavailable LEOBARDO RUSHLY Admitting Unavailable WEST, DR MICK Rodas Consulting Unavailable JOYA, DR MARICRUZ Hammonds Primary Care Unavailable DENISHA RUSH Attending Unavailable DENISHA RUSH Consulting Unavailable VICTOR MANUEL, DENISHA Admitting Unavailable WEST, DR MICK Rodas Consulting Unavailable JOYA, DR MARICRUZ Hammonds Primary Care Unavailable VICTOR MANUEL, DENISHA Attending Unavailable VICTOR MANUEL, DENISHA Consulting Unavailable EARNEST PORTER Admitting Unavailable JOYA, DR MARICRUZ Hammonds Primary Care Unavailable ZIEBER, DR SEVEN Gallegos Consulting Unavailable HIGHLANDEREARNEST Attending Unavailable HIGHLEARNEST LÓPEZ Consulting Unavailable AGUBOSIMSTEPHYLÁZARO Consulting Unavailable CHRISTI ., FIGUEROA HER Consulting Unavailable AMERICO DANIELSON Consulting Unavailable HIGHLMARIBEL, EARNEST Myrick Admitting Unavailable JOYA, DR MARICRUZ Hammonds Primary Care Unavailable HIGHLANDEREARNEST Consulting Unavailable EARNEST PORTER Attending Unavailable JOYA, DR MARICRUZ Hammonds Primary Care Unavailable HIGHLANDEREARNEST Consulting Unavailable HIGHLEARNEST LÓPEZ Admitting Unavailable HIGHLANDER, EARNEST Myrick Attending Unavailable AGRAWALCHUCK Consulting Unavailable VICTOR MANUEL, DENISHA Admitting Unavailable JOYA, DR MARICRUZ Hammonds Primary Care Unavailable DENISHA RUSH Attending Unavailable VICTOR MANUEL, DENISHA Admitting Unavailable JOYA, DR MARICRUZ Hammonds Primary Care Unavailable VICTOR MANUEL, DENISHA Attending Unavailable VICTOR MANUEL, DENISHA Admitting Unavailable JOYA, DR MARICRUZ Hammonds Primary Care Unavailable VICTOR MANUEL, DENISHA Attending Unavailable WEST, DR MICK Rodas Consulting Unavailable VICTOR MANUELDENISHA CASEY Consulting Unavailable HIGHLANDER, EARNEST Myrick Admitting Unavailable RADHA, DR SEVEN Gallegos Consulting Unavailable MAHNAZ, DR MARICRUZ Hammonds Primary Care Unavailable CHARLOTTE, EARNEST Myrick Attending Unavailable CHARLOTTE, EARNEST Myrick Consulting Unavailable CHARLOTTE, PETER D Admitting Unavailable RADHA, DR SEVEN Gallegos Consulting Unavailable CHARLOTTE, EARNEST Myrick Attending Unavailable JOYA, DR MARICRUZ Hammonds Primary Care Unavailable CHARLOTTE, EARNEST Myrick Consulting Unavailable CHARLOTTE, EARNEST D Admitting Unavailable MAHNAZ, DR MARICRUZ Hammonds Primary Care Unavailable CHARLOTTE, EARNEST Myrick Attending Unavailable Maricruz Joya Unavailable Shabana Merino Unavailable MD Shabana Merino Attending Provider MD Maricruz Joya Primary Care Provider [phone] Maricruz Joya MD Primary Care Provider MD Maricruz Joya Primary Care Provider QUIRINO Diaz Attending Provider [phone] Shabana Merino Admitting Unavailable Shabana Merino Attending Unavailable Maricruz Joya Primary Care Unavailable Cielo Diaz Admitting Unavailable Cielo Diaz Attending Unavailable Maricruz Joya Primary Care Unavailable ARON MCCONNELL Attending Unavailable ARON MCCONNELL Attending Unavailable ANNABELLE HATFIELD Attending Unavailable Maricruz Joya MD Primary Care Provider Juany Beasley APRN Attending Provider Allergies Allergy Classification Reported Allergen(s) Allergy Type Date of Onset Reaction(s) Facility (4 sources) patient allergy list reviewed by nurse or physicia Propensity to adverse reactions 9 Comment:Done [place] Other (4 sources) Allergies Reconciled Propensity to adverse reactions Unknown [place] Other Medications Current Medications Medication Drug Class(es) Dates Sig (Normalized) Sig (Original) Albuterol Sulfate 90 mcg/actuation HFA aerosol inhaler (2 sources) Start: 02-11-2024 Albuterol Sulfate 90 mcg/actuation HFA aerosol inhaler Active 2 INH INHALATION EVERY 4-6 HOURS as needed for shortness of breath or wheezing 6.7 14 February 104 12:00am cholecalciferol 0.05 mg oral capsule (9 sources) Vitamin D Start: 02-16-2024 take 1 capsule by mouth once daily Cholecalciferol (Vitamin D3) 50 mcg (2,000 unit) capsule Active 50 MCG PO Daily February 16, 2024 12:00am Complies with drug therapy Start: 10-28-2023 End: 02-16-2024 take 1 capsule by mouth every week Cholecalciferol (Vitamin D3) 1,250 mcg (50,000 unit) capsule Discontinued 1250 MCG PO every week October 28, 2023 12:00am February 16, 2024 8:47am ibuprofen 200 mg oral tablet (12 sources) Nonsteroidal Anti-inflammatory Drug Start: 09-10-2023 take 1 tablet by mouth at bedtime as needed Ibuprofen 200 mg tablet Active 200 MG PO Bedtime as needed October 01, 2023 12:00am Complies with drug therapy levonorgestrel 0.714750 mg/hr intrauterine system (9 sources) Progestin, Progestin-containing Intrauterine Device Start: 02-23-2024 End: 02-21-2029 Levonorgestrel intrauterine device 52 mg Start: 02-01-2019 Mirena (52 MG) 20MCG/24HR Mirena (52 MG)( 20MCG/24HR Intrauterine ) Active -Hx Entry Intrauterine for 0 [facility]:92082-054-37 LOT# [id number] EXP:01/2021 *Pick strength-form from [facility] for eRX* Jan, Active phentermine hydrochloride 37.5 mg oral tablet (3 sources) Sympathomimetic Amine Anorectic Start: 12-21-2024 End: 02-04-2025 take 1 tablet by mouth once daily 30 minutes after breakfast Phentermine 37.5 mg tablet Active 37.5 MG PO Daily February 04, 2025 10:17am must administer 30 minutes before or 1-2 hours after breakfast Complies with drug therapy semaglutide (Ozempic) 4 MG/3ML solution pen-injector (7 sources) inject 1 mg by subcutaneous injection [...] Oral daily for 0 *Pick strength-form from [facility] for eRX* Dec, Active Completed/Discontinued Medications Medication Drug Class(es) Dates Sig (Normalized) Sig (Original) [id number] 200 actuat albuterol 0.09 mg/actuat metered dose inhaler (3 sources) beta2-Adrenergic Agonist Start: 02-11-2024 End: 12-21-2024 Albuterol Sulfate 90 mcg/actuation HFA aerosol inhaler Discontinued 2 INH INHALATION EVERY 4-6 HOURS as needed for shortness of breath or wheezing 6.7 14 February 11, 2024 12:00am December 21, 2024 10:30am Start: 02-11-2024 Albuterol Sulf ate Active 2 INH INHALATION EVERY 4-6 HOURS 6.7 14 February 11, 2024 12:00am azithromycin 250 mg oral tablet (5 sources) Macrolide Antimicrobial Start: 02-11-2024 End: 03-16-2024 Azithromycin 250 mg tablet Discontinued 0 PO .COMPLEX February 11, 2024 12:00am March 16, 2024 12:38pm For 250 mg dose pack: take 500 mg today (day 1), then 250 mg for 4 days (days 2-5) PO Start: 02-11-2024 Azithromycin A ctive 0 PO .COMPLEX February 11, 2024 12:00am For 250 mg dose pack: take 500 mg today (day 1), then 250 mg for 4 days (days 2-5) PO 24 hr buPROPion hydrochloride 300 mg extended release oral tablet (11 sources) Aminoketone Start: 09-09-2024 End: 12-21-2024 take 1 tablet by mouth once daily in the morning Bupropion Hcl 300 mg tablet extended release 24 hr Discontinued 300 MG PO Every morning October 07, 2024 7:21am December 21, 2024 11:12am Start: 08-05-2024 End: 09-09-2024 take 1 tablet by mouth twice daily Bupropion Hcl 100 mg tablet sustained-release 12 hr Discontinued 100 MG PO Twice daily 60 August 05, 2024 12:00am September 09, 2024 10:37am methylPREDNISolone 4 mg oral tablet (5 sources) Corticosteroid Start: 02-11-2024 End: 03-16-2024 take 1 tablet by mouth once Methylprednisolone (Medrol (Evangelista)) 4 mg tablets,dose pack Discontinued 0 PO per package directions February 11, 2024 12:00am March 16, 2024 12:38pm PO PER PKG DIR Semaglutide Base 0.3 mg/0.25 mL (8 sources) Start: 02-16-2024 End: 05-27-2024 inject 1 mL by subcutaneous injection every week Semaglutide Base 0.3 mg/0.25 mL Discontinued 0.25 ML SUBCUT every week February 16, 2024 12:51pm May 27, 2024 6:14pm [facility] Pre-filled Syringes using Semaglutide Base. Dispense 1 mL = (Four 0.25 mL pre-filled syringes) Start: 12-22-2023 End: 02-16-2024 inject 1 mL by subcutaneous injection every week Semaglutide Base 0.3 mg/0.25 mL Discontinued 0.25 ML SUBCUT every week December 22, 2023 12:00am February 16, 2024 12:52pm [facility] Pre-filled Syringes using Semaglutide Base. Dispense 1 mL = (Four 0.25 mL pre-filled syringes) Semaglutide Base 0.6 mg/0.5 mL (4 sources) Start: 05-27-2024 End: 09-09-2024 inject 1 mL by subcutaneous injection every week Semaglutide Base 0.6 mg/0.5 mL Discontinued 0.5 ML SUBCUT every week May 27, 2024 1:00am September 09, 2024 10:10am Fax 05/27/2023 [facility] Pre-filled Syringes using Semaglutide Base. Dispense 2 mL = (Four 0.5 mL pre-filled syringes) Start: 05-27-2024 inject 1 mL by subcu taneous injection every week Semaglutide Base 0.6 mg/0.5 mL Active 0.5 ML SUBCUT every week May 27, 2024 1:00am Fax 05/27/2023 [facility] Pre-filled Syringes using Semaglutide Base. Dispense 2 mL = (Four 0.5 mL pre-filled syringes) Problems Active Problems Problem Classification Problem Date Documented Da te Episodic/Chronic Acute bronchitis (10 sources) Acute bronchitis; Translations: [Acute bronchitis] Onset: 09-27-2016 02-11-2024 Episodic Administrative/social admission (12 sources) Dietary management surveillance; Translations: [Dietary counseling and surveillance] Episodic Anxiety disorders (5 sources) Anxiety disorder, unspecified; Translations: [Anxiety disorder] Onset: 01-08-2022 Chronic Cardiac dysrhythmias (4 sources) Palpitations; Translations: [Palpitations] 03-16-2024 Episodic Contraceptive and procreative management (12 sources) Surveillance of intrauterine device contraception; Translations: [...] diagnostic imaging of breast] Episodic Nutritional deficiencies (14 sources) Vitamin deficiency; Translations: [Vitamin deficiency, unspecified] 10-01-2023 Episodic Osteoarthritis (9 sources) Primary osteoarthritis, right ankle and foot; Translations: [Localized, primary osteoarthritis of the ankle and/or foot] Onset: 01-08-2022 Chronic Other acquired deformities (4 sources) Joint contracture of the ankle and/or foot; Translations: [Contracture, right ankle] Chronic Other aftercare (4 sources) Long-term current use of drug therapy; Translations: [Other penitentiary (current) drug therapy] Episodic Other aftercare (4 sources) Long-term current use of antibiotic; 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] Episodic Other bone [...] Onset: 06-06-2017 Episodic Other lower respiratory disease (5 sources) Cough; Translations: [Cough] 02-11-2024 Episodic Other non-traumatic [...] Episodic Other nutritional; endocrine; and metabolic disorders (12 sources) Obesity; Translations: [Obesity, unspecified] 10-01-2023 Chronic Other nutritional; endocrine; and metabolic disorders (16 sources) Obese class II; Translations: [Body mass index (BMI) 38.0-38.9, adult] Onset: 08-12-2016 Resolved: 01-25-2020 Chronic Other nutritional; endocrine; and metabolic disorders (4 sources) Morbid obesity; Translations: [Morbid (severe) obesity due to excess calories] Chronic Other nutritional; endocrine; and metabolic disorders (8 sources) Body mass index 40+ - severely obese; Translations: [Body mass index (BMI) 40.0-44.9, adult] 10-01-2023 Chronic Other nutritional; endocrine; and metabolic disorders (6 sources) Body mass index (BMI) 40.0-44.9, adult; Translations: [Body Mass Index 40.0-44.9, adult] 11-21-2023 Chronic Other nutritional; endocrine; and metabolic disorders (6 sources) Obesity, unspecified; Translations: [Obesity, unspecified] 11-21-2023 Chronic Other nutritional; endocrine; and metabolic disorders (7 sources) Body mass index 30+ - obesity; Translations: [Body mass index (BMI) 36.0-36.9, adult] 05-27-2024 Chronic Other nutritional; endocrine; and metabolic disorders (4 sources) Body mass index (BMI) 36.0-36.9, adult; Translations: [Body Mass Index 36.0-36.9, adult] 05-27-2024 Chronic Other nutritional; endocrine; and metabolic disorders (12 sources) Abnormal weight gain; Translations: [Abnormal weight gain] 10-01-2023 Episodic Other nutritional; endocrine; and metabolic disorders (6 sources) Abnormal weight gain; Translations: [Abnormal weight gain] 11-21-2023 Episodic Other screening for suspected conditions (not mental disorders or infectious disease) (4 sources) Imaging result abnormal; Translations: [Abnormal findings on diagnostic imaging of other specified body structures] Chronic Other screening for suspected conditions (not mental disorders or infectious disease) (2 sources) Patient encounter status; Translations: [Encounter for screening mammogram for malignant neoplasm of breast] 01-29-2024 Episodic Ovarian cyst (4 sources) Cyst of left [...] [Sleep disorder, unspecified] Episodic Residual codes; unclassified (8 sources) History of syncope; Translations: [Personal history of other specified conditions] 10-01-2023 Episodic Residual codes; unclassified (8 sources) Past history of procedure; Translations: [Other specified postprocedural states] 10-01-2023 Episodic Residual codes; unclassified (6 sources) Other specified postprocedural states; Translations: [Other postprocedural status] 11-21-2023 Episodic Residual codes; unclassified (6 sources) Personal history of other specified conditions; Translations: [Other specified personal history presenting hazards to health] 11-21-2023 Episodic Sprains and strains (5 sources) Strain [...] 07-23-2018 Episodic Other aftercare (1 source) Other computer terminal operator (current) drug therapy; Translations: [OTH PATTERN DESIGNER CURRENT DRUG THERAPY] Onset: 01-08-2022 Episodic Other aftercare (1 source) group home (current) use of anticoagulants; Translations: [PATTERN DESIGNER CURRNT USE ANTICOAGULANTS] Onset: 01-08-2022 Episodic Other aftercare (1 source) group home (current) use of oral hypoglycemic drugs; Translations: [PENITENTIARY USE ORAL HYPOGLYCEMIC DX] Onset: 01-08-2022 Episodic Other aftercare (4 sources) History and physical examination, follow-up; Translations: [Encounter for follow-up examination after completed treatment for conditions other than malignant neoplasm] Resolved: 01-25-2020 Episodic Other bone disease and musculoskeletal deformities (1 source) Other specified disorders of bone density and structure, unspecified site; Translations: [OT D/O BONE DEN STRUCT UNS SITE] Onset: [...] Test Name Value Interpretation Reference Range Facility Cholesterol in LDL Calc [Mas s/Vol]on 07-23-2024 Cholesterol in LDL [Mass/Vol] Cholesterol in LDL [Mass/volume] in Serum or Plasma by calculation [facility] Comment on above: <100 mg/dl [id number] 0-129 mg/dl NEAR OR ABOVE [id number] mg/dl BORDERLINE [id number] mg/dl HIGH>190 mg/dl VERY HIGH Cholesterol in VLDL Calc [Ma ss/Vol]on 07-23-2024 Cholesterol in VLDL [Mass/Vol] Cholesterol in VLDL [Mass/volume] in Serum or Plasma by calculation [facility] Erythrocyte distribution wid th Auto (RBC) [Ratio]on 07-23-2024 Erythrocyte distribution width (RBC) [Ratio] Erythrocyte distribution width [Ratio] by Automated count 11.0-15.0 [facility] Estimated glomerular filtrat ion rate (GFR) non- Americanon 07-23-2024 GFR/1.73 sq M.predicted among non-blacks MDRD (S/P/Bld) [Vol rate/Area] Estimated glomerular filtration rate (GFR) non- >=60 mL/min/1.73m 2 [facility] Globulin Calc (S) [Mass/Vol] on 07-23-2024 Globulin (S) [Mass/Vol] Serum globulin measurement by calculation (mass/volume) [facility] Hematocrit Auto (Bld) [Volum e fraction]on 07-23-2024 Hematocrit (Bld) [Volume fraction] Hematocrit [Volume Fraction] of Blood by Automated count 36.0-48.0 [facility] Hemoglobin [Mass/volume] in Bloodon 07-23-2024 Hemoglobin (Bld) [Mass/Vol] Hemoglobin [Mass/volume] in Blood 12.0-16.0 [facility] Laboratory - Chemistry and C hemistry - challengeon 07-23-2024 Albumin [Mass/Vol] 3.6 g/dL 3.4-5.0 [facility] ALP [Catalytic activity/Vol] 56 U/L 46-116 [facility] ALT [Catalytic activity/Vol] 18 U/L 14-59 [facility] AST [Catalytic activity/Vol] 7 U/L Low 15-37 [facility] Bilirubin [Mass/Vol] 0.7 mg/dL 0.2-1.0 [facility] Calcium [Mass/Vol] 8.8 mg/dL 8.5-10.1 [facility] Chloride [Moles/Vol] 102 mmol/L 98-107 [facility] Cholesterol [Mass/Vol] 149 mg/dL <=200 [facility] Cholesterol in HDL [Mass/Vol] 54 mg/dL 40-60 [facility] Comment on above: > or =60 mg/dl - LOW CARDIOVASCULAR RISK<40 mg/dl - HIGH CARDIOVASCULAR RISK CO2 [Moles/Vol] 26.4 mmol/L 21.0-32.0 [facility] Cobalamin (Vitamin B12) [Mass/Vol] 318 pg/mL 232-1245 [facility] Comment on above: Performed at: - [facility] [place] [id number] Director: Cyrus Avalos PhD, Phone: [phone] Creatinine [Mass/Vol] 0.79 mg/dL 0.55-1.02 [facility] GFR/1.73 sq M.predicted MDRD (S/P/Bld) [Vol rate/Area] mL/min/{1.73_m2} >=60 mL/min/1.73m 2 [facility] Glucose [Mass/Vol] 89 mg/dL 74-106 [facility] Potassium [Moles/Vol] 4.1 mmol/L 3.5-5.1 [facility] Protein [Mass/Vol] 7.2 g/dL 6.4-8.2 [facility] Sodium [Moles/Vol] 136 mmol/L 136-145 [facility] Triglyceride [Mass/Vol] 42 mg/dL <=150 [facility] Urea nitrogen [Mass/Vol] 10.0 mg/dL 7.0-18.0 [facility] Urea nitrogen/Creatinine [Mass ratio] 12.7 mg/mg [facility] Leukocytes [#/volume] correc michael for nucleated erythrocytes in Blood by Automated counon 07-23-2024 WBC corrected for nucl RBC Auto (Bld) [#/Vol] Leukocytes [#/volume] corrected for nucleated erythrocytes in Blood by Automated coun 4.0-11.0 [facility] MCH Auto (RBC) [Entitic mass ]on 07-23-2024 MCH (RBC) [Entitic mass] MCH [Entitic mass] by Automated count 26.7-34.0 [facility] MCHC Auto (RBC) [Mass/Vol]on 07-23-2024 MCHC (RBC) [Mass/Vol] MCHC [Mass/volume] by Automated count 29.9-35.2 [facility] MCV Auto (RBC) [Entitic vol] on 07-23-2024 MCV (RBC) [Entitic vol] MCV [Entitic volume] by Automated count 81.0-99.0 [facility] No Panel Informationon 07-23 25-Hydroxy Vitamin D Total 21.0 ng/mL [facility] Comment on above: <20 ng/mL Vit D defi cient20-<30 ng/mL Vit D [id number] ng/mL Vit D sufficient>100 ng/mL Potential Toxicity Platelet mean volume Auto (B ld) [Entitic vol]on 07-23-2024 Platelet mean volume (Bld) [Entitic vol] Platelet mean volume [Entitic volume] in Blood by Automated count 9.5-13.5 [facility] Platelets Auto (Bld) [#/Vol] on 07-23-2024 Platelets (Bld) [#/Vol] Platelets [#/volume] in Blood by Automated count 150-450 [facility] RBC Auto (Bld) [#/Vol]on RBC (Bld) [#/Vol] Erythrocytes [#/volume] in Blood by Automated count 4.20-5.40 [facility] Serum or plasma albumin/glob ulin mass ratioon 07-23-2024 Albumin/Globulin [Mass ratio] Serum or plasma albumin/globulin mass ratio [facility] Serum or plasma anion gap de terminationon 07-23-2024 Anion gap [Moles/Vol] Serum or plasma anion gap determination [facility] Serum or plasma total choles terol/high density lipoprotein (HDL) cholesterol mass lorena 07-23-2024 Cholesterol.total/Ch olesterol in HDL [Mass ratio] Serum or plasma total cholesterol/high density lipoprotein (HDL) cholesterol mass rat [facility] Comment on above: 3.3 - 4.4 LOW RISK4. 4 - 7.1 AVERAGE RISK7.1 - 11.0 MODERATE RISK>11.0 HIGH RISK HCG ( test) Ql (U)o n 02-23-2024 Interpretation and review of laboratory results Normal [facility] Preg Test, Ur Negative [facility] IUD Insertionon 02-23-2024 Aron Mcconnell DO 02/23/2024 [...] placement: no Intended removal date: 5 years [facility] XR chest 2V*on 02-11-2024 XR chest 2V* [facility] [address] XRay Report Signed Patient: Laina Lara MR#: [id number] : 1975 Acct:[id number] Age/Sex: 48 / F ADM Date: 02/11/24 Loc: XDUCLY Room: Type: [facility] Attending Dr: Cielo Diaz OPERATOR [employer] Copies to: Cielo Diaz APRN Ordering Provider: [...] Adam Burt M.D.02/11/2024 1:57 PM Dictation Location: [place] [address] Transcribed By: [facility] 02/11/241356 Dictated By: Adam Burt DO 02/11/241356 Signed By: 02/11/24 135 Normal [facility] IGP,APTIMA HPV,AGE GDLNon AGE GDLN ACOG TESTING Note . [facility] Comment on above: TESTS RESULT FLAG UN ITS REF RANGE LAB Clinician Provided Cytology Information Source.............Cervix;Endocervix No. of containers..01 ThinPrep Vial Age Algo ACOG Vandana... FLAG LEGEND: L-Low Normal,H-High Normal,LL-Alert Low,HH-Alert High <-Panic Low,>-Panic High,A-Abnormal,AA-Critical Abnormal Performed at: 01 =G [address] [place] [address] Daniela Newton MD, HPV APTIMA Negative Negative [facility] Comment on above: This nucleic acid am plification test detects fourteen high- risk HPV types (16,18,31,33,35,39,45,51,52,56,58,59,66,68) without differentiation. Performed at: =G - [facility] [id number] Technical Project Lead: Daniela Newton MD, Phone: [phone] Performed at: - [address] [id number] Technical Project Lead: Daniela Newton MD, Phone: [phone] IGP, APTIMA HPV, RFX 16/18,45 Note . [facility] Comment on above: TESTS RESULT FLAG UN ITS REF RANGE LAB DIAGNOSIS: 02 NEGATIVE FOR INTRAEPITHELIAL LESION OR MALIGNANCY. CELLULAR CHANGES ASSOCIATED WITH INFLAMMATION ARE PRESENT. THIS SPECIMEN WAS RESCREENED PART OF OUR POWER GENERATION PLANT OPERATOR PROGRAM. Specimen adequacy: 02 Satisfactory for evaluation. Endocervical and/or squamous metaplastic cells (endocervical component) are present. Performed by: 02 Evaristo Ervin, Blintze Roller (ASCP) QC reviewed by: 02 Juany Hurd, Supervisory Blintze Roller (ASCP) . 02 Note: Note 02 The Pap [...] <-Panic Low,>-Panic High,A-Abnormal,AA-Critical Abnormal Performed at: 02 [facility] [address] [place] [address] Daniela Newton MD, BRUSH-SPATULA CERVIX ENDOCERVIX [facility] Human papilloma virus 16+18+ 31+33+35+39+45+51+52+56+58+59+66+68 DNA [Presence] in [place] 01-29-2024 HPV 16+18+31+33+35+39+45 +51+52+56+58+59+66+6 8 DNA Probe+sig amp Ql (Cvx) Negative Negative [facility] Comment on above: This nucleic acid am plification test detects fourteen high- risk HPV types (16,18,31,33,35,39,45,51,52,56,58,59,66,68)without differentiation.Performed at: =G - [facility] [address] [id number] Director: Daniela Newton MD, Phone: [phone] at: - [facility] [id number] Director: Daniela Newton MD, Phone: [phone] No Panel Informationon 01-28 HPV High Risk Other Comment Note . [facility] Comment on above: TESTS RESULT FLAG UN ITS REF RANGE LAB DI AGNOSIS: 02 NEGATIVE FOR INTRAEPITHELIAL LESION OR MALIGNANCY. CELLULAR CHANGES ASSOCIATED WITH INFLAMMATION ARE PRESENT. THIS SPECIMEN WAS RESCREENED PART OF OUR POWER GENERATION PLANT OPERATOR PROGRAM.Specimen adequacy: 02 Satisfactory for evaluation. Endocervical and/or squamous metaplastic cells (endocervical component) are present.Performed by: 02 Evaristo Ervin, Blintze Roller ([facility])QC reviewed by: 02 Juany Hurd, Supervisory Blintze Roller ([facility]). 02Note: Note 02 The Pap smear is [...] Low,>-Panic High,A-Abnormal,AA-Critical Abnormal ---Performed at:02 [facility] [address], [place] [id number] Daniela Newton MD, Reference Lab Test Patient Age Note . [facility] Comment on above: TESTS RESULT FLAG UN ITS REF RANGE LAB Clinician Provided Cytology Information Source.............Cervix;Endocervix No. of containers..01 ThinPrep VialAge Robinson POOLE Vandana... 30-65 FLAG LEGEND: L-Low Normal,H-High Normal,LL-Alert Low,HH-Alert High <-Panic Low,>-Panic High,A-Abnormal,AA-Critical Abnormal ---Performed at:01 =G [address] [id number] Daniela Newton MD, [facility] echo transthoracicon [facility] echo transthoracic [facility] [address] Echocardiogram Signed Patient: Laina Lara MR#: [id number] : 1975 Acct:[id number] Age/Sex: 47 / F ADM Date: 03/07/23 Loc: Room: Type: [facility] Attending Dr: Shabana Merino MD Ordering Provider: Shabana Merino MD Date of Service: 03/07/2307/25/1036 [facility] echo transthoracic: Syncope, unspecified syncope [...] mmHg RAP systole: 5.0 mmHg Transcribed By: SCV Performed At: 03/07/23 1050 Signed By: Shabana Merino MD 03/07/23 1252 Normal [facility] POINT OF CARE GLUCOSEon 12-04 Glucose [Mass/Vol] 136 mg/dL Critically high 74-106 T [facility] Comment on above: Performed By: #### P OCGLUC ####[facility] [address] [place] [address]Dr. Heidy Corona PREG HCG QUALon 12-27-2021 , QUAL Negative Normal NEGATIVE [facility] Comment on above: Performed By: #### P REG ####[facility] [address] [address]DrTawana Corona CBC AUTO DIFFon 12-17-2021 BASO # 0.0 103/ul Normal 0.0-0.1 [facility] Comment on above: Performed By: #### C BC ####[facility] [address] [place] [id number]. Heidy Corona Basophils/100 WBC (Bld) 0.3 % Normal 0.2-2.0 [facility] Comment on above: Performed By: #### C BC ####[facility] [address] [place] [address]Dr. Heidy Corona EO # 0.2 103/ul Normal 0.0-0.7 [facility] Comment on above: Performed By: #### C BC ####[facility] [address] [place], [place] [address]Dr. Heidy Corona Eosinophils/100 WBC (Bld) 3.1 % Normal 0.9-7.0 [facility] Comment on above: Performed By: #### C BC ####[facility] [address] [place], [place] [address]Dr. Heidy Corona Erythrocyte distribution width (RBC) [Ratio] 13.1 % Normal 11.0-15.0 [facility] Comment on above: Performed By: #### C BC ####[facility] [address] [place], [place] [address]Dr. Heidy Corona Hematocrit (Bld) [Volume fraction] 41.2 % Normal 36.0-48.0 [facility] Comment on above: Performed By: #### C BC ####[facility] [address] [place], [place] [address]Dr. Heidy Corona Hemoglobin (Bld) [Mass/Vol] 13.6 g/dL Normal 12.0-16.0 [facility] Comment on above: Performed By: #### C BC ####[facility] [address] [place], [place] [address]Dr. Heidy Corona IG # 0.01 10e3/ul Normal 0.00-0.03 [facility] Comment on above: Performed By: #### C BC ####[facility] [address] [place], [place] [address]Dr. Heidy Corona IG % 0.2 % Normal 0.0-0.5 [facility] Comment on above: Performed By: #### C BC ####[facility] [address] [place] [address]Dr. Heidy Corona LYMPH # 1.2 103/ul Normal 1.2-3.8 [facility] Comment on above: Performed By: #### C BC ####[facility] [address] [place] [address]Dr. Heidy Corona Lymphocytes/100 WBC (Bld) 20.1 % Critically low 20.5-60.0 [facility] Comment on above: Performed By: #### C BC ####[facility] [address] [place] [address]Dr. Heidy Corona MANUAL DIFF REQ NO Normal [facility] Comment on above: Performed By: #### C BC ####[facility] [address] [place] [address]Dr. Heidy Cj MCH (RBC) [Entitic mass] 29.4 pg Normal 26.7-34.0 [facility] Comment on above: Performed By: #### C BC ####[facility] [address] [place] [address]Dr. Heidy Corona MCHC (RBC) [Mass/Vol] 33.0 g/dL Normal 29.9-35.2 [facility] Comment on above: Performed By: #### C BC ####[facility] [address] [place] [address]Dr. Heidy Corona MCV (RBC) [Entitic vol] 89.2 fL Normal 81.0-99.0 [facility] Comment on above: Performed By: #### C BC ####[facility] [address] [place] [address]Dr. Heidy Corona MONO # 0.4 103/ul Normal 0.3-0.8 [facility] Comment on above: Performed By: #### C BC ####[facility] [address] [place] [address]Dr. Heidy Corona Monocytes/100 WBC (Bld) 6.2 % Normal 1.7-12.0 [facility] Comment on above: Performed By: #### C BC ####[facility] [address] [place] [address]Dr. Heidy Corona NEUT # 4.1 103/ul Normal 1.4-6.5 [facility] Comment on above: Performed By: #### C BC ####[facility] [address] [place] [address]Dr. Heidy Corona Neutrophils/100 WBC (Bld) 70.1 % Normal 43.0-75.0 [facility] Comment on above: Performed By: #### C BC ####[facility] [address] [place] [address]Dr. Heidy Corona Platelet mean volume (Bld) [Entitic vol] 11.5 fL Normal 9.5-13.5 [facility] Comment on above: Performed By: #### C BC ####[facility] [address] [place] [address]Dr. Heidy Corona PLT 209 103/ul Normal 150-450 [facility] Comment on above: Performed By: #### C BC ####[facility] [address] [place] [address]Dr. Heidy Corona RBC 4.62 106/ul Normal 4.20-5.40 [facility] Comment on above: Performed By: #### C BC ####[facility] [address] [place] [address]Dr. Heidy Corona WBC 5.8 103/ul Normal 4.0-11.0 [facility] Comment on above: Performed By: #### C BC ####[facility] [address] [place] [address]DrTawana Corona PROF CHEM 8 (BAS METB)on Anion gap [Moles/Vol] 11.6 mmol/L Normal [facility] Comment on above: Performed By: #### B MP #### [facility] [address] [place], [place] [address] Dr. Heidy Corona Calcium [Mass/Vol] 8.4 mg/dL Critically low 8.5-10.1 [facility] Comment on above: Performed By: #### B MP #### [facility] [address] [place] [address] [address] Heidy Corona Chloride [Moles/Vol] 102 mmol/L Normal 98-107 [facility] Comment on above: Performed By: #### B MP #### [facility] [address] [address] [address] Heidy Corona CO2 [Moles/Vol] 28.2 mmol/L Normal 21.0-32.0 [facility] Comment on above: Performed By: #### B MP #### [facility] [address] [address] [address] Heidy Corona Creatinine [Mass/Vol] 0.68 mg/dL Normal 0.55-1.02 [facility] Comment on above: Performed By: #### B MP #### [facility] [address] [place] [address] Dr. Heidy Corona EGFR-AF NEPALESE >60 Normal >=60 [facility] Comment on above: Performed By: #### B MP #### [facility] [address] [address] [address] Heidy Corona EGFR-NON AF NEPALESE >60 Normal >=60 [facility] Comment on above: Performed By: #### B MP #### [facility] [address] [place] [address] Dr. Heidy Corona Glucose [Mass/Vol] 90 mg/dL Normal 74-106 [facility] Comment on above: Performed By: #### B MP #### [facility] [address] [address] [address] Heidy Corona Potassium [Moles/Vol] 3.8 mmol/L Normal 3.5-5.1 [facility] Comment on above: Performed By: #### B MP #### [facility] [address] [address] [address] Heidy Corona Sodium [Moles/Vol] 138 mmol/L Normal 136-145 [facility] Comment on above: Performed By: #### B MP #### [facility] [address] [place] [address] Dr. Heidy Corona Urea nitrogen [Mass/Vol] 10.0 mg/dL Normal 7.0-18.0 [facility] Comment on above: Performed By: #### B MP #### [facility] [address] [address] [address] Heidy Corona Urea nitrogen/Creatinine [Mass ratio] 14.7 mg/mg Normal [facility] Comment on above: Performed By: #### B MP #### [facility] [address] [address] [address] Heidy Corona PROTIMEon 12-17-2021 INR Coag (PPP) [Relative time] 1.07 {INR} Normal [facility] Comment on above: Performed By: #### P T, PTT ####[facility] [address] [place] [address]Dr. Heidy Corona INR GUIDELINES SEE BELOW Normal [facility] Comment on above: Result Comment: KHURRAM RED INR: 2.0 - 3.0 CONDITIONS NOT LISTED BELOW 2.5 - 3.5 FOR PROSTHETIC HEART VALVE REPLACEMENT 2.5 - 3.5 RECURRENT THROMBOSIS Performed By: #### P T, PTT ####[facility] [address] [place] [address]Dr. Heidy Corona PT Coag (PPP) [Time] 11.5 s Normal 9.0-11.6 [facility] Comment on above: Performed By: #### P T, PTT ####[facility] [address] [place] [address]Dr. Heidy Corona PTTon 12-17-2021 aPTT Coag (Bld) [Time] 29.9 s Normal 22.3-36.2 [facility] Comment on above: Performed By: #### P T, PTT #### [facility] [address] [place] [address] ANKLE RT WO [...] by: MICK KOEHLER Date: 2021-10-23 16:36 Normal [facility] Vital Signs Date Time Vital Sign Value Performing Clinician Facility 02-04-2025 09:49-0400 Body height 162.31 cm Maricruz Joya MD Work Phone: [facility] 02-04-2025 09:49-0400 Body mass index (BMI) [Ratio] 34.2 kg/m2 Maricruz Joya MD Work Phone: [facility] 02-04-2025 09:49-0400 Body weight 90.3 kg Maricruz Joya MD Work Phone: [facility] 02-04-2025 09:49-0400 Diastolic blood pressure 75 mm[Hg] Maricruz Joya MD Work Phone: [facility] 02-04-2025 09:49-0400 Heart rate 66 /min Maricruz Joya MD Work Phone: [facility] 02-04-2025 09:49-0400 Respiratory rate 18 /min Maricruz Joya MD Work Phone: [facility] 02-04-2025 09:49-0400 SaO2% (BldA) [Mass fraction] 98 % Maricruz Joya MD Work Phone: [facility] 02-04-2025 09:49-0400 Systolic blood pressure 113 mm[Hg] Maricruz Joya MD Work Phone: [facility] 12-21-2024 10:22-0400 Body height 163.09 cm Maricruz Joya MD Work Phone: [facility] 12-21-2024 10:-0400 Body mass index (BMI) [Ratio] 34.9 kg/m2 Maricruz Joya MD Work Phone: [facility] 12-21-2024 10:22-0400 Body weight 92.9 kg Maricruz Joya MD Work Phone: [facility] 12-21-2024 10:22-0400 Diastolic blood pressure 54 mm[Hg] Maricruz Joya MD Work Phone: [facility] 12-21-2024 10:22-0400 Heart rate 69 /min Maricruz Joya MD Work Phone: [facility] 12-21-2024 10:22-0400 Respiratory rate 18 /min Maricruz Joya MD Work Phone: [facility] 12-21-2024 10:22-0400 SaO2% (BldA) [Mass fraction] 96 % Maricruz Joya MD Work Phone: [facility] 12-21-2024 10:22-0400 Systolic blood pressure 124 mm[Hg] Maricruz Joya MD Work Phone: [facility] 09-09-2024 10:05-0400 Body height 162.31 cm [facility] [place] 09-09-2024 10:05-0400 Body mass index (BMI) [Ratio] 35.2 kg/m2 [facility] 09-09-2024 10:05-0400 Body weight 92.8 kg [facility] [place] 09-09-2024 10:05-0400 Diastolic blood pressure 76 mm[Hg] [facility] 09-09-2024 10:05-0400 Heart rate 75 /min [facility] [place] 09-09-2024 10:05-0400 Respiratory rate 16 /min [facility] 09-09-2024 10:05-0400 SaO2% (BldA) [Mass fraction] 98 % [facility] 09-09-2024 10:05-0400 Systolic blood pressure 118 mm[Hg] [facility] 08-05-2024 08:24-0400 Body height 165.1 cm [facility] [place] 08-05-2024 08:24-0400 Body mass index (BMI) [Ratio] 35.1 kg/m2 [facility] 08-05-2024 08:24-0400 Body weight 95.7 kg [facility] [place] 08-05-2024 08:24-0400 Diastolic blood pressure 85 mm[Hg] [facility] 08-05-2024 08:24-0400 Heart rate 71 /min [facility] [place] 08-05-2024 08:24-0400 Respiratory rate 18 /min [facility] 08-05-2024 08:24-0400 SaO2% (BldA) [Mass fraction] 96 % [facility] 08-05-2024 08:24-0400 Systolic blood pressure 122 mm[Hg] [facility] 05-27-2024 08:55-0500 Body height 165.1 cm [facility] [place] 05-27-2024 08:55-0500 Body mass index (BMI) [Ratio] 36.1 kg/m2 [facility] 05-27-2024 08:55-0500 Body weight 98.51 kg [facility] [place] 05-27-2024 08:55-0500 Diastolic blood pressure 75 mm[Hg] [facility] 05-27-2024 08:55-0500 Heart rate 73 /min [facility] [place] 05-27-2024 08:55-0500 Respiratory rate 18 /min [facility] 05-27-2024 08:55-0500 SaO2% (BldA) [Mass fraction] 95 % [facility] 05-27-2024 08:55-0500 Systolic blood pressure 109 mm[Hg] [facility] 03-22-2024 11:50-0500 Body mass index (BMI) [Ratio] 38.28 kg/m2 Annabelle HOLLY Work Phone: [facility] 03-22-2024 11:50-0500 Body weight 101.15 kg Annabelle HOLLY Work Phone: [facility] 03-22-2024 11:50-0500 Diastolic blood pressure 74 mm[Hg] Annabelle HOLLY Work Phone: [facility] 03-22-2024 11:50-0500 Systolic blood pressure 116 mm[Hg] Annabelle HOLLY Work Phone: [facility] 02-23-2024 10:00-0400 Body mass index (BMI) [Ratio] 38.45 kg/m2 Aron Enedina DO Work Phone: [facility] 02-23-2024 10:00-0400 Body weight 101.61 kg Aron Enedina DO Work Phone: [facility] 02-23-2024 10:00-0400 Diastolic blood pressure 70 mm[Hg] Aron Enedina DO Work Phone: [facility] 02-23-2024 10:00-0400 Systolic blood pressure 112 mm[Hg] Aron Enedina DO Work Phone: [facility] 02-11-2024 13:01-0400 Body height 165.1 cm MD Maricruz Joya Work Phone: [facility] 02-11-2024 13:01-0400 Body mass index (BMI) [Ratio] 36.6 kg/m2 MD Maricruz Joya Work Phone: [facility] 02-11-2024 13:01-0400 Body temperature 98.6 [degF] MD Maricruz Joya Work Phone: [facility] 02-11-2024 13:01-0400 Body weight 99.79 kg MD Maricruz Joya Work Phone: [facility] 02-11-2024 13:01-0400 Diastolic blood pressure 78 mm[Hg] MD Maricruz Joya Work Phone: [facility] 02-11-2024 13:01-0400 Heart rate 100 /min MD Maricruz Joya Work Phone: [facility] 02-11-2024 13:01-0400 Respiratory rate 18 /min MD Maricruz Joya Work Phone: [facility] 02-11-2024 13:01-0400 SaO2% (BldA) [Mass fraction] 95 % MD Maricruz Joya Work Phone: [facility] 02-11-2024 13:01-0400 Systolic blood pressure 117 mm[Hg] MD Maricruz Joya Work Phone: [facility] 01-29-2024 08:54-0400 Body mass index (BMI) [Ratio] 38.59 kg/m2 Aron Enedina DO Work Phone: [facility] 01-29-2024 08:54-0400 Body weight 101.97 kg Aron Enedina DO Work Phone: [facility] 01-29-2024 08:54-0400 Diastolic blood pressure 74 mm[Hg] Aron Enedina DO Work Phone: [facility] 01-29-2024 08:54-0400 Systolic blood pressure 110 mm[Hg] Aron Enedina DO Work Phone: [facility] 12-22-2023 08:47-0400 Body height 163.83 cm MD Maricruz Joya Work Phone: [facility] 12-22-2023 08:47-0400 Body mass index (BMI) [Ratio] 39.9 kg/m2 MD Maricruz Joya Work Phone: [facility] 12-22-2023 08:47-0400 Body weight 107.1 kg MD Maricruz Joya Work Phone: [facility] 12-22-2023 08:47-0400 Diastolic blood pressure 74 mm[Hg] MD Maricruz Joya Work Phone: [facility] 12-22-2023 08:47-0400 Heart rate 61 /min MD Maricruz Joya Work Phone: [facility] 12-22-2023 08:47-0400 Respiratory rate 18 /min MD Maricruz Joya Work Phone: [facility] 12-22-2023 08:47-0400 SaO2% (BldA) [Mass fraction] 96 % MD Maricruz Joya Work Phone: [facility] 12-22-2023 08:47-0400 Systolic blood pressure 109 mm[Hg] MD Maricruz Joya Work Phone: [facility] 11-21-2023 09:38-0400 Body height 163.83 cm MD Maricruz Joya Work Phone: [facility] 11-21-2023 09:38-0400 Body mass index (BMI) [Ratio] 39.2 kg/m2 MD Maricruz Joya Work Phone: [facility] 11-21-2023 09:38-0400 Body weight 105.26 kg MD Maricruz Joya Work Phone: [facility] 11-21-2023 09:38-0400 Diastolic blood pressure 78 mm[Hg] MD Maricruz Joya Work Phone: [facility] 11-21-2023 09:38-0400 Heart rate 67 /min MD Maricruz Joya Work Phone: [facility] 11-21-2023 09:38-0400 Respiratory rate 18 /min MD Maricruz Joya Work Phone: [facility] 11-21-2023 09:38-0400 SaO2% (BldA) [Mass fraction] 97 % MD Maricruz Joya Work Phone: [facility] 11-21-2023 09:38-0400 Systolic blood pressure 119 mm[Hg] MD Maricruz Joya Work Phone: [facility] 02-10-2023 13:40-0400 Body height 165.1 cm Shabana Wilber Other [facility] Other 02-10-2023 13:40-0400 Body mass index (BMI) [Ratio] 39.83 kg/m2 Shabana Merino Other [facility] Other 02-10-2023 13:40-0400 Body weight 108.59 kg Shabana Merino Other [facility] Other 02-10-2023 13:40-0400 Diastolic blood pressure 84 mm[Hg] Shabana Merino Other [facility] Other 02-10-2023 13:40-0400 SaO2% (BldA) [Mass fraction] 96 % Shabana Merino Other [facility] Other 02-10-2023 13:40-0400 Systolic blood pressure 122 mm[Hg] Shabana Merino Other [facility] Other Encounters Encounter Date Encounter Type Care Provider Facility Start: 02-04-2025 End: 02-04-2025 ambulatory Maricruz Joya MD Work Phone: [facility] Work Phone: Start: 02-04-2025 End: 02-04-2025 Patient encounter procedure Juany Beasley [facility] Work Phone: Start: 12-21-2024 End: 12-21-2024 ambulatory Maricruz Joya MD Work Phone: [facility] Work Phone: Start: 12-21-2024 End: 12-21-2024 Patient encounter procedure Juany Beasley [facility] Work Phone: Start: 09-09-2024 End: 09-09-2024 ambulatory [facility] Work Phone: Start: 09-09-2024 End: 09-09-2024 Patient encounter procedure [facility] Work Phone: Start: 08-05-2024 End: 08-05-2024 ambulatory [facility] Work Phone: Start: 08-05-2024 End: 08-05-2024 Patient encounter procedure [facility] Work Phone: Start: 07-23-2024 Non-patient / Non-visit [facility] Work Phone: Start: 05-27-2024 End: 05-27-2024 Patient encounter procedure [facility] Work Phone: Start: 03-22-2024 End: 03-22-2024 Bamboo flowsheet Annabelle HOLLY Work Phone: [facility] Start: 03-22-2024 End: 03-22-2024 Bamboo flowsheet Annabelle HOLLY Work Phone: [facility] Start: 03-22-2024 End: 03-22-2024 Office outpatient visit 10 minutes Annabelle HOLLY Work Phone: [facility] Comment on above: Intrauterine device surveillance Start: 03-22-2024 End: 03-22-2024 ambulatory ANNABELLE HATFIELD Not Available Start: 02-23-2024 End: 02-23-2024 ambulatory ARON ENEDINA Not Available Start: 02-23-2024 End: 02-23-2024 Patient encounter procedure Aron Enedina DO Work Phone: [facility] Comment on above: Encounter for IUD re moval; Encounter for IUD insertion Start: 02-11-2024 End: 02-11-2024 ambulatory MD Maricruz Joya Work Phone: [facility] Work Phone: Start: 02-11-2024 End: 02-11-2024 Patient encounter procedure MD Maricruz Joya Work Phone: [facility] Work Phone: Start: 01-29-2024 End: 01-29-2024 Bamboo flowsheet Aron Enedina DO Work Phone: [facility] Start: 01-29-2024 End: 02-06-2024 Clinisync Result Encounter Aron Enedina DO Work Phone: [facility] Unsolicited Start: 01-29-2024 End: 02-06-2024 Clinisync Result Encounter Aron Enedina DO Work Phone: [facility] Unsolicited Start: 01-29-2024 Non-patient / Non-visit MD Fabiola Joya Work Phone: [facility] Work Phone: Start: 01-29-2024 End: 01-29-2024 ambulatory ARON JOHNSONO Not Available Start: 01-29-2024 End: 01-29-2024 Patient encounter procedure Aron Enedina DO Work Phone: [facility] Work Phone: Start: 01-29-2024 End: 01-29-2024 Periodic preventive med est patient 40-64yrs Aron Enedina DO Work Phone: [facility] Comment on above: Well woman exam with routine gynecological exam; Breast cancer screening by mammogram Start: 12-22-2023 End: 12-22-2023 Patient encounter procedure MD Maricruz Joya Work Phone: [facility] Work Phone: Start: 11-21-2023 End: 11-21-2023 Patient encounter procedure MD Maricruz Joya Work Phone: [facility] Work Phone: Start: 03-07-2023 End: 03-07-2023 Patient encounter procedure MD Maricruz Joya Work Phone: [facility] Work Phone: Start: 03-07-2023 End: 03-07-2023 ambulatory MD Maricruz Joya Work Phone: [facility] Work Phone: Start: 03-03-2023 End: 03-03-2023 ambulatory Shabana Wilber Other [facility] Other Start: 03-03-2023 Telephone encounter Shabana Wilber [facility] Start: 02-11-2023 End: 02-11-2023 ambulatory Shabana Merino Other [facility] Other Start: 02-11-2023 Telephone encounter Shabana Wilber [facility] Start: 02-10-2023 End: 02-10-2023 ambulatory Shabana Merino Other [facility] Other Start: 02-10-2023 Office outpatient ne w 30 minutes Shabana Wilber [facility] Start: 01-30-2023 End: 01-30-2023 ambulatory Maricruz Joya Other [facility] Other Start: 01-30-2023 Telephone encounter Maricruz Joya [facility] Start: 09-18-2022 ambulatory EARNEST WANANDER Faci lity:H1 Start: 06-26-2022 End: 06-27-2022 ambulatory PETER D HIGHLANDER Facility:[facility]1 Start: 05-05-2022 End: 06-15-2022 ambulatory DENISHA VICTOR MANUEL Facility:[facility] Start: 05-01-2022 Gynecological examin ation normal Maricruz Joya Other [facility] Other Start: 03-20-2022 End: 03-21-2022 ambulatory PETER D HIGHLANDER Facility:[facility]1 Start: 02-13-2022 End: 05-04-2022 ambulatory DENISHA VICTOR MANUEL Facility:[facility] Start: 02-07-2022 End: 02-08-2022 ambulatory DENISHA VICTOR MANUEL Facility:[facility]1 Start: 01-17-2022 End: 01-18-2022 ambulatory DENISHA VICTOR MANUEL Facility:[facility] Start: 12-27-2021 End: 12-27-2021 ambulatory [facility] Facility:[facility]1 Start: 12-24-2021 ambulatory [facility] Faci lity:H1 Start: 12-18-2021 Encounter for preprocedural cardiovascular examination [facility] Start: 12-18-2021 Encounter for preprocedural laboratory examination [facility] Start: 12-17-2021 End: 12-18-[address] MARICRUZ JOYA Facility:[facility]1 Start: 12-17-2021 End: 12-18-2021 Encounter for preprocedural cardiovascular examination DR MARICRUZ JOYA Facility:[facility]1 Start: 10-23-2021 End: 10-24-2021 ambulatory DENISHA RUSH Facility:[facility]1 Start: 10-18-2021 End: 10-19-2021 ambulatory DENISHA RUSH Facility:[facility]1 Start: 09-06-2021 End: 09-07-2021 ambulatory DENISHA RUSH Facility: Procedures Date Procedure Procedure Detail Performing [...] procedure 02/01/2025 9:00 AM EDT Office Visit [facility] [address] [place] [phone] Aron Mcconnell, DO [address] [place], [place] [phone] [facility] Start: 03-22-2024 End: 03-22-2024 Patient encounter procedure 03/22/2024 11:30 AM EST Office Visit [facility] [address] [place] [phone] Annabelle Hatfield PA [address] [place], [place] [phone] [facility] Start: 02-23-2024 End: 02-22-2025 IUD Removal IUD Removal Procedures Routine Encounter for IUD removal Expected: 02/23/2024 (Approximate), Expires: 02/22/2025 [facility] Work Phone: Comment on above: Expected: 02/23/2024 (Approximate), Expires: 02/22/2025 Start: 02-23-2024 End: 02-23-2024 Patient encounter procedure 02/23/2024 9:30 AM EDT Procedure [facility] [address] [phone] Aron Mcconnell, DO [address] [place] [address] [facility] Start: 01-29-2024 End: 03-30-2025 MG Breast - bilateral Screening Bilateral screening mammogram Imaging Routine Breast cancer screening by mammogram Expected: 01/29/2024 (Approximate), Expires: 03/30/2025 [facility] Work Phone: Comment on above: Expected: 01/29/2024 (Approximate), Expires: 03/30/2025 Comprehensive metabo lic 2000 panel - Serum or Plasma [facility] THIN PREP TIS PAP AN D HR HPV DNA THIN PREP TIS PAP AND HR HPV DNA Pathology and Cytology Routine Well woman exam with routine gynecological exam Ordered: 01/29/2024 [facility] Comment on above: Ordered: 01/29/2024 XR Chest 2 Views [facility] Payers Date Payer Category Payer Self-pay 2022 Private Health Insurance [id number] 1976 Unknown [id number] [id number] 1976 Unknown [id number] 2.16.840.1.596748.3.579.2.593 1976 Unknown [id number] 2.16.840.1.700092.3.579.2.593 1976 Unknown [id number] 2.16.840.1.024369.3.579.2.593 1976 Unknown [id number] 2.16.840.1.674090.3.579.2.593 1976 Unknown [id number] 2.16.840.1.626455.3.579.2.593 1976 Unknown [id number] 2.16.840.1.984521.3.579.2.593 1976 Unknown [id number] 2.16.840.1.325542.3.579.2.593 1976 Unknown [id number] 2.16.840.1.334356.3.579.2.593 1976 Unknown [id number] 2.16.840.1.459426.3.579.2.593 1976 Unknown [id number] 2.16.840.1.685834.3.579.2.593 1976 Unknown [id number] 2.16.840.1.709133.3.579.2.593 1976 Unknown [id number] 2.16.840.1.240121.3.579.2.593 1976 Unknown [id number] 2.16.840.1.864938.3.579.2.1259 1976 Unknown [id number] 2.16.840.1.363480.3.579.2.1259 1976 Unknown [id number] 2.16.840.1.739473.3.579.2.1259 1959 Private Health Insurance [id number] Private Health Insurance [facility] [id number] Unknown [id number] 2.16.840.1.080479.3.579.2.531 Unknown [id number] 2.16.840.1.266612.3.579.2.531 Social History Date Type Detail Facility Unknown if ever smoked [email or web address] [facility] [employer] Other Sex Assigned At [employer] Other Start: 1975 Sex Assigned At Female F [facility] Tobacco smoking status [facility] Tobacco smoking consumption unknown [facility] Start: 1975 Sex assigned at Not on file [facility] Start: 10-01-2023 End: 03-16-2024 Tobacco smoking status TXIS Never smoked tobacco (finding) [facility] Start: 08-05-2024 End: 09-09-2024 Sex Female (finding) [facility] Clinical Notes 09-07-2021 to 12-21-2024 Note Date & Type Note Facility 12-21-2024 Evaluation note Diagnosis Onset Date Resolution Abnormal weight gain acute Augu st 2024 10:15am BMI 36.0-36.9,adult acute Augus t 2024 10:15am BMI 40.0-44.9, adult acute Augu st 2024 10:15am History of esophageal dilatation acute December 21 10:15am Hx of syncope acute December 10:15am Obesity acute December 21, 2 025 10:15am Vitamin deficiency acute December 21, 2024 10:15am Abnormal weight gain acute Octo luis manuel 2024 9:44am BMI 36.0-36.9,adult acute Octob er 2024 9:44am BMI 40.0-44.9, adult acute Octo luis manuel 2024 9:44am History of esophageal dilatation acute February 04 9:44am Hx of syncope acute February 9:44am Obesity acute February 04, 2 025 9:44am Vitamin deficiency acute Octobe r 2024 9:44am [facility] Work Phone: [phone]) [phone] Evaluation note* Diagnosis Onset Date Resolution Status Admit Date Abnormal weight gain acute Apri l 2024 8:21am BMI 36.0-36.9,adult acute August 05, 2024 8:21am BMI 40.0-44.9, adult acute Apri l 2024 8:21am History of esophageal dilatation acu te August 05, 2024 8:21am Hx of syncope acute August 05, 2024 8:21am Obesity acute August 05 8:21am Vitamin deficiency acute August 05, 2024 8:21am Abnormal weight gain acute September 09, 2024 9:54am BMI 36.0-36.9,adult acute September 092024 9:54am BMI 40.0-44.9, adult acute September 09, 2024 9:54am History of esophageal dilatation acu te September 09, 2024 9:54am Hx of syncope acute September 09 9:54am Obesity acute September 09, 2024 9:54am Vitamin deficiency acute September 9:54am [facility] Work Phone: 1([phone]) 534-384201-23-2025 Evaluation note* Diagnosis Onset Date Resolution Status Admit Date Abnormal weight gain acute Elton chris 2024 8:43am BMI 36.0-36.9,adult acute Janua ry 2024 8:43am BMI 40.0-44.9, adult acute Elton chris 2024 8:43am History of esophageal dilatation acute May 27 8:43am Hx of syncope acute May 8:43am Obesity acute May 27, 2024 8:43am Vitamin deficiency acute Kolbyuar y 2024 8:43am Abnormal weight gain acute Apri l 2024 8:21am BMI 36.0-36.9,adult acute August 05, 2024 8:21am BMI 40.0-44.9, adult acute Apri l 2024 8:21am History of esophageal dilatation acute August 05, 2024 8:21am Hx of syncope acute August 05, 2024 8:21am Obesity acute August 05 8:21am Vitamin deficiency acute August 05, 2024 8:21am [facility] Work Phone: 1(227) 920-307611-18-2024 History of Present illness Narrative* ELAYNE Ferrer - 03/22/2024 11:30 AM EST Reason for Appointment: Patient ID: Laina Lara is a 48 y.o. female who presents for string check Patient presents today for String Check Follow Up appointment. MEDICATIONS Current Outpatient Medications Medication Instructions ibuprofen 200 mg, Oral, Every 8 hours PRN semaglutide (OZEMPIC) 1 mg, Subcutaneous, Weekly ALLERGIES No Known Allergies PROBLEMS Active Ambulatory Problems Diagnosis Date Noted Encounter for IUD removal 02/23/2024 Resolved Ambulatory Problems Diagnosis Date Noted No Resolved Ambulatory Problems No Additional Past Medical History HISTORY PAST MEDICAL HISTORY SOCIAL HISTORY History reviewed. No pertinent past medical history. Social History Tobacco Use Smoking status: Not on file Smokeless tobacco: Not on file Substance Use Topics Alcohol use: Not on file Drug use: Not on file FAMILY HISTORY No family history on file. SURGICAL HISTORY History reviewed. No pertinent surgical history. REVIEW OF SYSTEMS Review of Systems: Review of Systems All other systems reviewed and are negative. OBJECTIVE Objective: Physical Exam Constitutional: Appearance: Normal appearance. She is normal weight. Genitourinary: IUD strings visualized. HENT: Head: Normocephalic. Cardiovascular: Rate and Rhythm: Normal rate. Pulses: Normal pulses. Pulmonary: Effort: Pulmonary effort is normal. Breath sounds: Normal breath sounds. Abdominal: Palpations: Abdomen is soft. Musculoskeletal: General: Normal range of motion. Neurological: General: No focal deficit present. Mental Status: She is alert and oriented to person, place, and time. Psychiatric: Mood and Affect: Mood normal. Behavior: Behavior normal. Thought Content: Thought content normal. Judgment: Judgment normal. Vitals and nursing note reviewed. Vitals: Estimated body mass index is 38.28 kg/m as calculated from the following: Height as of 08/26/17: 5' 4 . Weight as of this encounter: 223 lb. BP: 116/74 No LMP recorded (lmp unknown). Patient has had an implant. ASSESSMENT & PLAN ICD-10-CM 1. Intrauterine device surveillance Z30.431 Patient presents for iud device check. Patient having no issues or concerns. Partner not feeling strings. Patient will return for annual or sooner if needed Documented by ELAYNE Ferrer on behalf of: ELAYNE Ferrer documented in this encounterSaint Francis Medical [id number] History of Present illness Narrative* Aron Mcconnell DO - 02/23/2024 9:30 AM EDTAssociated Order(s): IUD Insertion Post-Procedure Diagnose(s): Encounter for [...] nursing note reviewed. Exam conducted with a safety compliance specialist present. Vitals: Estimated body mass index is [...] is having an unknown IUD removed and aMirena placed, written consent was obtained and patient [...] was then gently sounded, New IUD was advancedthrough the endocervix, toward the uterine fundus. The [...] of: Aron Mcconnell DO documented in this encounterSaint Francis Medical [id number] History of Present illness Narrative* Andra Haynes LPN - 01/29/2024 8:30 AM EDT Reason for Appointment: Patient ID: Laina Lara is a 48 y.o. female who presents for [facility] Women Visit Patient presents today for Annual Exam. MEDICATIONS Current Outpatient Medications Medication Instructions ibuprofen 200 mg, Oral, Every 8 hours PRN semaglutide (OZEMPIC) 1 mg, Subcutaneous, Weekly ALLERGIES No Known Allergies PROBLEMS Active Ambulatory Problems Diagnosis Date Noted No Active Ambulatory Problems Resolved Ambulatory Problems Diagnosis Date Noted No Resolved Ambulatory Problems No Additional Past Medical History HISTORY PAST MEDICAL HISTORY SOCIAL HISTORY History reviewed. No pertinent past medical history. Social History Tobacco Use Smoking status: Not on file Smokeless tobacco: Not on file Substance Use Topics Alcohol use: Not on file Drug use: Not on file FAMILY HISTORY No family history on file. SURGICAL HISTORY History reviewed. No pertinent surgical history. REVIEW OF SYSTEMS Review of Systems: Review of Systems All other systems reviewed and are negative. OBJECTIVE Objective: Physical Exam Constitutional: Appearance: Normal appearance. She is well-developed. Genitourinary: Vulva normal. IUD strings visualized. Breasts: Breasts are soft. Right: Normal. Left: [...] nursing note reviewed. Exam conducted with a safety compliance specialist present. Vitals: Estimated body mass index is 38.59 kg/m as calculated from the following: Height as of 18: 5' 4 . Weight as of this encounter: 224 lb 12.8 oz. BP: 110/74 No LMP recorded. Patient has had an implant. ASSESSMENT & PLAN ICD-10-CM 1. Well woman exam with routine gynecological exam Z01.419 THIN PREP TIS PAP AND HR HPV DNA 2. Breast cancer screening by mammogram Z12.31 Bilateral screening mammogram Bilateral screening mammogram Annual: Patient presents today for an annual exam. Patient states she is doing well and has no complaints. Pap was obtained without difficulty and patient given mammogram order to have scheduled/obtained. Patient vocied she is due to have IUD removed and would like another re-inserted. Patient to schedule appointment prior to leaving office. Orders Placed This Encounter Procedures Bilateral screening mammogram Follow Up: Patient is to return in one year for annual unless needed otherwise. Documented by Andra Haynes LPN on behalf of: Aron Mcconnell DO documented in this encounterSaint Francis Medical [id number] Evaluation note* Encounter Date Diagnosis Assessment Notes Treatment Notes Treatment Clinical Notes Feb, Syncope, unspecified syncope type (ICD-10 - R55) Ms. Lara is a 47-year-old female with past medical history significant for DVT of the right lower extremity in 2020, right ankle replacement she presents today for presyncope and palpitations. Presyncope and palpitations concerning for POTSAtypical chest pain-We will plan for 2-week event monitor to rule out arrhythmias-Echocar diogram to evaluate LV and valvular function-Encouraged hydration and use of compression stockings.-Follow-u p in a month [employer] Other 02-22-2023 NotePROCEDURE: XR ANKLE RT MIN 3 VIEWS [...] Electronically authenticated by: SEVEN GARCIA Date: 2022-06-26 17:04[facility]11-17-2022 NotePROCEDURE: XR ANKLE RT MIN [...] Electronically authenticated by: SEVEN GARCIA Date: 2022-03-21 06:50[id number] NotePROCEDURE: XR ANKLE RT MIN 3 VIEWS COMPARISON: 01/17/2022 HISTORY: Pain FINDINGS: BONES: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 Anatomic alignment. Moderate plantar enthesopathic spurring of the calcaneus SOFT TISSUES:Moderate diffuse soft tissue swelling. Interval removal of surgical skin margarita. EFFUSION:None visible. OTHER: Negative. IMPRESSION: Stable ankle replacement Electronically authenticated by: MICK KOEHLER Date: 2022-02-07 17:43[facility]09-15-2022 NotePROCEDURE: XR ANKLE RT MIN [...] Electronically authenticated by: MICK KOEHLER Date: 2022-01-17 11:18[facility]08-26-2022 NotePROCEDURE: XR ANKLE RT 2V HISTORY: Pain COMPARISON: XR ankle right 10/18/2021 FINDINGS: BONES:Multiple intraoperative spot fluoroscopic images were obtained during replacement of the articular surface polycomponent of the tibial plafond prosthesis. IMPRESSION: 1. Intraoperative surgical revision/repair. Electronically authenticated by: SEVEN GARCIA Date: 2021-12-28 09:56[facility]08-26-2022 NotePROCEDURE: XR ANKLE RT MIN [...] Electronically authenticated by: SEVEN GARCIA Date: 2021-12-28 07:54[facility]08-01-2022 History general Narrative - Reported* Type Description Date Medical History eosinophilic esophagitis Medical History GERD Surgical History C section Surgical History Foot Surgery-RIGHT 12/2021 Surgical History Rt. 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/2020 [employer] Other 06-16-2022 NotePROCEDURE: XR ANKLE RT MIN [...] Electronically authenticated by: SEVEN GARCIA Date: 2021-10-18 16:47[facility]05-06-2022 NotePROCEDURE: XR ANKLE RT MIN [...] authenticated by: MICK KOEHLER Date: 2021-09-07 07:14[facility] noteNo InformationNort [employer] Other Evaluation noteNo assessment information available [facility] Work Phone: Evaluation note* Diagnosis Onset Date Resolution Status Abnormal weight gain acute BMI 40.0-44.9, adult acute History of esophageal dilatation acute Hx of syncope acute Obesity acute Vitamin deficiency acute Abnormal weight gain acute BMI 40.0-44.9, adult acute History of esophageal dilatation acute Hx of syncope acute Obesity acute Vitamin deficiency acute Acute bronchitis acute [facility] Work Phone: Evaluation note* Diagnosis Encounter for IUD removal Encounter for IUD insertion Insertion of intrauterine contraceptive device documented in this encounter [facility]* Diagnosis Intrauterine device surveillance documented in this encounter [facility]* Diagnosis Well woman exam with routine gynecological exam Routine gynecological examination Breast cancer screening by mammogram documented in this encounter [facility]* Diagnosis Onset Date Resolution Status Admit Date Abnormal weight gain acute Augu st 2024 10:15am BMI 36.0-36.9,adult acute Augus t 2024 10:15am BMI 40.0-44.9, adult acute Augu st 2024 10:15am History of esophageal dilatation acute December 21 10:15am Hx of syncope acute December 10:15am Obesity acute December 21, 2 025 10:15am Vitamin deficiency acute December 21, 2024 10:15am [facility] Work Phone: Reason for referral (narrative)No reason for referral information availableAdena [facility] Work Phone: Summary Purpose Family History Relationship Condition Age at Onset Recorded Date/T roddy mother Chronic obstructive pulmonary disease Unk nown Advance Directives Advance Directive Response Recorded Date/ Time Advance [...] of syncope Obesity Vitamin deficiency Acute bronchitis Chief Complaint Admit Date WMN f/u May 27, 2024 8 :43am WMN f/u August 05, 2024 8:21 am Reason for Visit Admit Date Abnormal weight gain May 27, 2024 8:43am BMI 36.0-36.9,adult May 27, 2024 8 :43am BMI 40.0-44.9, adult May 27, 2024 8:43am History of esophageal dilatation May 27, 2024 8:43am Hx of syncope May 27, 2024 8 :43am Obesity May 27, 2024 8 :43am Vitamin deficiency May 27, 2024 8 :43am Abnormal weight gain August 05, 2024 8:2 1am BMI 36.0-36.9,adult August 05, 2024 8:21 am BMI 40.0-44.9, adult August 05, 2024 8:2 1am History of esophageal dilatation August 052024 8:21am Hx of syncope August 05, 2024 8:21 am Obesity August 05, 2024 8:21 am Vitamin deficiency August 05, 2024 8:21 am Chief Complaint Admit Date WMN f/u August 05, 2024 8:21 am 6 week-WMN f//u September 09, 2024 9:54am Reason for Visit Admit Date Abnormal weight gain August 05, 2024 8:2 1am BMI 36.0-36.9,adult August 05, 2024 8:21 am BMI 40.0-44.9, adult August 05, 2024 8:2 1am History of esophageal dilatation August 052024 8:21am Hx of syncope August 05, 2024 8:21 am Obesity August 05, 2024 8:21 am Vitamin deficiency August 05, 2024 8:21 am Abnormal weight gain September 09, 2024 9:54a m BMI 36.0-36.9,adult September 09, 2024 9:54am BMI 40.0-44.9, adult September 09, 2024 9:54a m History of esophageal dilatation September 9:54am Hx of syncope September 09, 2024 9:54am Obesity September 09, 2024 9:54am Vitamin deficiency September 09, 2024 9:54am Chief Complaint Admit Date 10 week-WMN f/u December 21, 2024 10 :15am Reason for Visit Admit Date Abnormal weight gain December 21, 2024 1 0:15am BMI 36.0-36.9,adult December 21, 2024 10 :15am BMI 40.0-44.9, adult December 21, 2024 1 0:15am History of esophageal dilatation December 21, 2024 10:15am Hx of syncope December 21, 2024 10 :15am Obesity December 21, 2024 10 :15am Vitamin deficiency December 21, 2024 10 :15am Chief Complaint Admit Date 10 week-WMN f/u December 21, 2024 10 :15am WMN f/u February 04, 2025 9: 44am Reason for Visit Admit Date Abnormal weight gain December 21, 2024 1 0:15am BMI 36.0-36.9,adult December 21, 2024 10 :15am BMI 40.0-44.9, adult December 21, 2024 1 0:15am History of esophageal dilatation December 21, 2024 10:15am Hx of syncope December 21, 2024 10 :15am Obesity December 21, 2024 10 :15am Vitamin deficiency December 21, 2024 10 :15am Abnormal weight gain February 04, 2025 9 :44am BMI 36.0-36.9,adult February 04, 2025 9: 44am BMI 40.0-44.9, adult February 04, 2025 9 :44am History of esophageal dilatation February 04, 2025 9:44am Hx of syncope February 04, 2025 9: 44am Obesity February 04, 2025 9: 44am Vitamin deficiency February 04, 2025 9: 44am Additional Source Comments INFORMATION SOURCE (unrecogn ized section and content) DATE CREATED AUTHOR 09/02/2022 [facility] DATE CREATED AUTHOR AUTHOR'S ORGANIZ ATION 02/22/2024 [facility] DATE CREATED AUTHOR AUTHOR'S ORGANIZ ATION 03/24/2024 [facility] EPIC REASON FOR VISIT (unrecogniz ed section and content) Reason Comments Contraception Pt present today for Mirena removal/insert Reason Comments string check Reason Comments Well Women Visit Care Teams (unrecognized sec tion and content) Team Status: Active Member Role Status Dates Maricruz Joya MD Primary Care Provider Active Team Status: Inactive Member Role Status Dates Shabana Merino MD Attending Provider Active Maricruz Joya MD Primary Care Provider Active Break Out Worker Relationship Specialty Start Date End Date Maricruz Joya MD [address] [place] [place] [phone] PCP - General 01/22/24 Team Status: Active Member Role Status Dates Shabana Merino MD Support Staff Active Maricruz Joya MD Primary Care Provider [...] 2023 Team Status: Active Member Role Status Dates [...] February 11, 2024 End: February 11, 2024 Break Out Worker Relationship Specialty Start Date End Date Maricruz Joya MD [address] [place] [facility] [place] [phone] PCP - General 01/22/24 Break Out Worker Relationship Specialty Start Date End Date Maricruz Joya MD [address] [place] [phone] PCP - General 01/22/24 Break Out Worker Relationship Specialty Start Date End Date Maricruz Joya MD [address] [place] [facility] [place] [address] PCP - General 01/22/24 Break Out Worker Relationship Specialty Start Date End Date Maricruz Joya MD [address] [place] [place] [address] PCP - General 01/22/24 Break Out Worker Relationship Specialty Start Date End Date Maricruz Joya MD [address] [place] [facility] [place] [phone] PCP - General 01/22/24 Team Status: Inactive Member Role Status Dates Maricruz Joya MD Primary Care Provider Active Start: May 27, 2024 End: May 27, 2024 Juany Beasley [employer] Attending Provider Active Start: May 27, 2024 End: May 27, 2024 Team Status: Active Member Role Status Dates Maricruz Joya MD Primary Care Provider Active Start: July 23, 2024 Juany Beasley , [employer] Attending Provider Active Start: July 23, 2024 Team Status: Inactive Member Role Status Dates Maricruz Joya MD Primary Care Provider Active Start: August 05, 2024 End: August 05, 2024 Juany Beasley , [employer] Attending Provider Active Start: August 05, 2024 End: August 05, 2024 Team Status: Inactive Member Role Status Dates Maricruz Joya MD Primary Care Provider Active Start: September 09, 2024 End: September 09, 2024 Juany Beasley APRN Attending Provider Active Start: September 09, 2024 End: September 09, 2024 Team Status: Inactive Member Role Status Dates Maricruz Joya MD Primary Care Provider Active Start: December 21, 2024 End: December 21, 2024 Juany Beasley APRN Attending Provider Active Start: December 21, 2024 End: December 21, 2024 Team Status: Inactive Member Role Status Dates Maricruz Joya MD Primary Care Provider Active Start: February 04, 2025 End: February 04, 2025 Juany Beasley APRN Attending Provider Active Start: February 04, 2025 End: February 04, 2025 Goals (unrecognized section and content) Goals may [...] BE BASED ON THE PRIMARY CLINICAL RECORDS. [employer] [facility]. provides no warranty or guarantee of the accuracy or completeness of information in this document.
--- OUTSIDE RECORDS SUMMARY | 2025-02-14 21:10 | XMS_ITS | Encounter Summary ---
Author Organization [facility] Address [address] [facility] [place] [address] Care Team Providers Care Drywall Worker Name Role Phone Maricruz Maynard MD Primary Care Provider [phone] Encounter Details Date Type Department Care Team (Late st Contact Info) Description 02/06/2024 Orders Only DAYNE GILLESPIE [address] [place] [address] Shayy Borges LPN [address] [facility] Sridevi [facility] Social History Tobacco Use Types Packs/Day Years Used Date Smoking Tobacco: Never Assessed Comments No Sex and Gender Information Value Date Recorded Sex Assigned at Not on file Legal Sex Female 7:24 PM EDT Gender Identity Not on file Sexual Orientation Not on file documented as of this encounter Plan of Treatment Upcoming Encounters Date Type Department Care Team (Late st Contact Info) Description 02/20/2026 2:00 PM EDT Procedure Visit DAYNE GILLESPIE [address] [place] [address] Refugio Mcconnell DO 102 [facility] [place] [id number] documented as of this encounter Procedures Procedure Name Priority Date/Time Associated Diagnosis Comments PAP SMEAR Routine 01/29/2024 12:00 AM EDT documented in this encounter Results * Pap Smear (01/29/2024 12:00 AM EDT) Swab Cervical swab / Unknown us [facility] CYTOLOGY ORDERABLES Final Result EXTERNAL LAB documented in this encounter Visit Diagnoses Not on filedocumented in this encounter Care Teams Drywall Worker Relationship Specialty Start Date End Date Maricruz Maynard MD [address] [place] [id number] PCP - General 01/22/24 documented as of this encounter
--- OUTSIDE RECORDS SUMMARY | 2025-02-14 21:10 | XMS_ITS | Clinical Summary ---
Author Organization [facility] Address [address] [facility] [place] [address] Care Team Providers Care Principal Quality Engineer Name Role Phone Maricruz Maynard MD Primary Care Provider [phone] Allergies No known active allergies Medications ibuprofen 200 MG tablet Take 200 mg by mouth every 8 (eight) hours if needed for mild pain 09/10/19 24 Active buPROPion XL (Wellbutrin XL) 300 MG 24 hr tablet Take 300 mg by mouth in the morning. 01/28/20 25 Active phentermine (Adipex-P) 37.5 MG tablet TAKE 1 TABLET BY MOUTH 30 MINS BEFORE OR 1-2 HOURS AFTER BREAKFAST 01/22/20 25 Active semaglutide (Ozempic) 4 MG/3ML solution pen-injector Inject 1 mg under the skin 1 (one) time per week 025 Discontinued Hospital, Clinic, or Other Facility Administered Medication Ordered Dose Route Frequency Start Date End Date Status Levonorgestrel intrauterine device 52 mgIndications:Encounter for IUD insertion 52 mg IU Continuous 02/23/2024 02/21/2029 Active Active Problems Problem Noted Date Diagnosed Date Encounter for IUD removal 02/23/2024 Encounters Date Type Department Care Team Description 02/14/2025 1:00 PM EDT Office Visit DAYNE GILLESPIE [address] [place] [address] Refugio Mcconnell, DO [place] woman exam with routine gynecological exam; Encounter for screening mammogram for malignant neoplasm of breast 02/14/2025 Bamboo flowsheet [facility] [address] [place] [address] Refugio Mcconnell DO 02/13/2025 Travel from Last 3 Months Social History Tobacco Use Types Packs/Day Years Used Date Smoking Tobacco: Never Assessed Comments No Sex and Gender Information Value Date Recorded Sex Assigned at Not on file Legal Sex Female 7:24 PM EDT Gender Identity Not on file Sexual Orientation Not on file Last Filed Vital Signs Vital Sign Reading Time Taken Comments Blood Pressure 120/82 02/14/2025 1:01 PM EDT Pulse - - Temperature - - Respiratory Rate - - Oxygen Saturation - - Inhaled Oxygen Concentration - - Weight 90.9 kg (200 lb 8 oz) 02/14/2025 1:01 PM EDT Height 162.6 cm (5' 4 ) 08/26/2017 12:00 PM EDT Body Mass Index 34.42 08/26/2017 12:00 PM EDT Plan of Treatment Upcoming Encounters Date Type Department Care Team (Late st Contact Info) Description 02/20/2026 2:00 PM EDT Procedure Visit DAYNE Gonsalez OBG[facility] [address] [facility] [place] [phone] Refugio Mcconnell DO [address] [facility] [place] [address] Insurance [facility] Care Teams Principal Quality Engineer Relationship Specialty Start Date End Date Maricruz Maynard MD [address] [facility] [place] [address] PCP - General 01/22/24
--- OUTSIDE RECORDS SUMMARY | 2025-02-14 21:10 | XMS_ITS | Patient Health Record ---
Author Organization [facility] [place] Address [address] [place] [address] Care Team Providers Care Elementary Ell Teacher Name Role Phone Maricruz Maynard Primary Care Provider Noe Avila [phone] Allergies No Known Allergies Reason For Referral No Information Medications Medication SIG (Take, Route, Fr equency, Duration) Notes Start Date End Date Status Ibuprofen 200 MG 1 tablet with food o r milk as needed Orally Three times a day 09/10/2023 Active Social History Tobacco Use: Social History Observation Description Date Details (start date - stop date) Never Smoker NA - NA Tobacco Use/Smoking Question Answer Notes Patient is a nonsmoker Problems Problem Type SNOMED Code ICD Code Onset Dates Problem Status W/U Status Risk Notes Problem Localized, primary osteoarthritis of the ankle and/or foot (782407034) Primary osteoarthritis , 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 confirmed 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
--- OUTSIDE RECORDS SUMMARY | 2025-02-14 21:10 | XMS_ITS | Encounter Summary ---
Author Organization [facility] Address [address] [facility] [place] [address] Care Team Providers Care Organic Search Lead Name Role Phone Maricruz Maynard MD Primary Care Provider [phone] Encounter Details Date Type Department Care Team (Late st Contact Info) Description 02/29/2024 Clinisync Result Encounter [facility] External Department Unsolicited Refugio Mcconnell, DO [address] [place], [place] [id number] Social History Tobacco Use Types Packs/Day Years [...] EDT Procedure Visit [facility]NE Gonsalez [facility]BG[facility] [address] [place] [address] Refugio Mcconnell, DO [address] [place] [address] documented as of this encounter Procedures Procedure Name Priority Date/Time Associated Diagnosis Comments MM TOMOSYNTHESIS SCREENING BI 02/29/2024 7:06 PM EDT documented in this encounter Results * MM TOMOSYNTHESIS SCREENING BI (02/29/2024 7:06 PM EDT) Anatomical Region Laterality Modality Other 02/29/2024 7:06 PM EDT Narrative 02/29/2024 7:07 [place] [address] Mammography Report Signed Patient: DOUG BARROSO MR#: [id number] : 1975 Acct:[id number] Age/Sex: 48 / F ADM Date: 02/26/24 Loc: MAMMO Attending Dr: Refugio Mcconnell D.O. Ordering Physician: Refugio Mcconnell D.O. Results: Date of Service: 02/26/24 Follow Up: Procedure(s): MM tomosynthesis screening BI Accession Number(s): [id number] cc: Maricruz Maynard M.D.; Refugio Mcconnell D.O. Patient Name: DOUG BARROSO MR#: [id number] : 1975 Exam Date: 02/26/2024 Ordering Doctor: DR Refugio Mcconnell . RADIOLOGY REPORT PROCEDURE: MM TOMOSYNTHESIS SCREENING BI COMPARISON: MG MAMM SCREEN 3D YOSI CAD, 01/26/2021. MG MAMM LT DIAG FU, 10/26/2018. MG MAMM SCREEN YOSI W CAD, 10/08/2018. INDICATIONS: Screening Calculator Name NCI Breast Cancer Risk Assessment Tool 5 Year Breast Cancer Risk Not Reported. Lifetime Breast Cancer Risk Not Reported. Personal Breast Cancer No Personal Ovarian Cancer No Treatments None Family Cancers None LOCATION: [facility] BREAST COMPOSITION: There are scattered areas of fibroglandular density. FINDINGS: DIAGNOSTIC CATEGORY 1--NEGATIVE. RIGHT BREAST: No significant suspicious finding. No significant change has occurred. LEFT BREAST: No significant suspicious finding. No significant change has occurred. RECOMMENDATIONS: ROUTINE MAMMOGRAM AND CLINICAL EVALUATION IN 12 MONTHS. PLEASE NOTE: A NORMAL MAMMOGRAM DOES NOT EXCLUDE THE POSSIBILITY OF BREAST CANCER. A CLINICALLY SUSPICIOUS PALPABLE LUMP SHOULD BE BIOPSIED. Dictated by: Heri Chambers M.D. on 02/29/2024 at 19:04 Approved by: Heri Chambers M.D. on 02/29/2024 at 19:06 Dictated By: Heri Chambers M.D. Signed By: 02/29/241906 DD/ 05 TD/TT: Marine Animal Trainer: Procedure Note Radiology, Radiologist, MD - 02/29/2024 [place] [address] Mammography Report Signed Patient: DOUG BARROSO MMR#: [id number] : 1975Acct:[id number] Age/Sex: 48 / FADM Date: 02/26/24 Loc: MAMMO Attending Dr: Refugio Mcconnell D.O. Ordering Physician: Refugio Mcconnell D.O.Results: Date of Service: 02/26/24Follow Up: Procedure(s): MM tomosynthesis screening BI Accession Number(s): [id number] cc: Maricruz Maynard M.D.; Refugio Mcconnell D.O. Patient Name: DOUG BARROSO MR#: [id number] : 1975 Exam Date: 02/26/2024 Ordering Doctor: DR Refugio Mcconnell . RADIOLOGY REPORT PROCEDURE: MM TOMOSYNTHESIS SCREENING BI COMPARISON: MG MAMM SCREEN 3D YOSI CAD, 01/26/2021. MG MAMM LT DIAG FU, 10/26/2018. MG MAMM SCREEN YOSI W CAD, 10/08/2018. INDICATIONS: Screening Calculator Name NCI Breast Cancer Risk Assessment Tool 5 Year Breast Cancer Risk Not Reported. Lifetime Breast Cancer Risk Not Reported. Personal Breast Cancer No Personal Ovarian Cancer No Treatments None Family Cancers None LOCATION: [facility] BREAST COMPOSITION: There are scattered areas of fibroglandulardensity. FINDINGS: DIAGNOSTIC CATEGORY 1--NEGATIVE. RIGHT BREAST: No significant suspicious finding. No significant changehas occurred. LEFT BREAST: No significant suspicious finding. No significant changehas occurred. RECOMMENDATIONS: ROUTINE MAMMOGRAM AND CLINICAL EVALUATION IN 12 MONTHS. PLEASE NOTE: A NORMAL MAMMOGRAM DOES NOT EXCLUDE THE POSSIBILITY OFBREAST CANCER. A CLINICALLY SUSPICIOUS PALPABLE LUMP SHOULD BE BIOPSIED. Dictated by: Heri Chambesr M.D. on 02/29/2024 at 19:04 Approved by: Heri Chambers M.D. on 02/29/2024 at 19:06 Dictated By: Heri Chambers M.D. Signed By:02/29/241906 DD/ 05 TD/TT: Marine Animal Trainer: us Refugio Enedina DO [facility] Final Result documented in this encounter Visit Diagnoses Not on filedocumented in this encounter Care Teams Organic Search Lead Relationship Specialty Start [place] [address] [place] [address] PCP - General 01/22/24 documented as of this encounter
--- OUTSIDE RECORDS SUMMARY | 2025-02-14 21:10 | XMS_ITS | Encounter Summary ---
Author Organization [facility] Address [address] [facility] [address] Care Team Providers Care Marketing Coordinator Name Role Phone Maricruz Maynard MD Primary Care Provider [phone] Encounter Details Date Type Department Care Team (Latest Contact Info) Description 02/13/2025 Travel Social History Tobacco Use Types Packs/Day Years [...] EDT Procedure Visit [facility]NE [facility]onsalez [facility] [address] [place] [id number] Refugio Mcconnell DO [address] [facility] [address] [place], [place] [id number] documented as of this encounter Visit Diagnoses Not on filedocumented in this encounter Care Teams Marketing Coordinator Relationship Specialty Start Date End Date Maricruz Maynard MD [address] [place] [phone] PCP - General 01/22/24 documented as of this encounter
--- OUTSIDE RECORDS SUMMARY | 2025-02-14 21:10 | XMS_ITS | Encounter Summary ---
Author Organization [facility] Address [address] [facility] [place] [address] Care Team Providers Care Tar Leveler Name Role Phone Maricruz Maynard MD Primary Care Provider [phone] Encounter Details Date Type Department Care Team (Late Contact Info) Description 02/14/2025 Bamboo flowsheet [facility] [address] [facility] [place] [address] Refugio Mcconnell DO [address] [place], [facility] [address] Social History Tobacco Use Types Packs/Day Years Used Date Smoking Tobacco: Never Assessed Comments No Sex and Gender Information Value Date Recorded Sex Assigned at Not on file Legal Sex Female 7:24 PM EDT Gender Identity Not on file Sexual Orientation Not on file documented as of this encounter Plan of Treatment Upcoming Encounters Date Type Department Care Team (Late Contact Info) Description 02/20/2026 2:00 PM EDT Procedure Visit DAYNE GILLESPIE [address] [place] [address] Refugio Mcconnell DO [address] [place], [facility] [address] documented as of this encounter Visit Diagnoses Not on filedocumented in this encounter Care Teams Tar Leveler Relationship Specialty Start Date End Date Maricruz Maynard MD [address] [place] [phone] PCP - General 01/22/24 documented as of this encounter
[2025-02-18 15:13] LABS: Age Gdln ACOG Testing Note (.); IGP, Aptima HPV, rfx 16/18,45 Note (.)
== END 2025-02-14 21:08 | disposition home or self-care (01) ==
LOC: LAB 21:07
PROVIDERS: PCP Family Medicine; Visit Provider Obstetrics & Gynecology
DX: Z01.419 Encounter for gynecological examination (general) (routine) without abnormal findings (principal)
CPT/HCPCS: 87624; 88175